=== PATIENT | female | born 1950 | race American Indian/Alaskan Native ===

== ENCOUNTER 2016-05-09 05:40 | Emergency (ER) | payer MEDICARE, OTHER ==
[2016-05-09 05:38] VITALS: BP 132/77
--- NOTE | 2016-05-09 06:26 | EDM.PDOC ---
<Alen Lizama - Last Filed: 05/09/16 07:03> ED HPI GENERAL MEDICAL PROBLEM - General Chief Complaint: Neuro Symptoms/Deficits Stated Complaint: IN BY AMBULANCE Time Seen by Provider: 05/09/16 06:15 Source of Information: Reports: Patient History Limitations: Reports: No limitations - History of Present Illness INITIAL COMMENTS - FREE TEXT/NARRATIVE: This 65 yo female patient was brought to the ED by [facility] due to feeling like she was going to have a seizure. The patient reports a past history of seizures, but has not had one for "a long time." The patient reports she started feeling this way last Tuesday (6 days ago). The patient reports she feels "jumpy". The patient reports her symptoms have not changed. The patient reports she has been feeling a little light headed over the past 6 days also. The patient reports her doctor added a medication for seizures this past week and also put her on "something for her kidneys." The patient reports she has not fallen during the past week and has been eating and drinking normally. The patient reports her daughter made her come in this morning. Onset Date: 05/03/16 Duration: Constant Location: Reports: generalized Quality: Reports: Other Severity: mild Improves with: Reports: None Worsens with: Reports: None Context: Reports: Other (possiblly coincides with a recent medication change) Associated Symptoms: Reports: other (lightheaded and feels "jumpy" ) - Related Data Allergies Allergy/AdvReac Type Severity Reaction Status Date / Time No Known Allergies Allergy Verified 05/09/16 05:31 Home Meds: Home Meds Aspirin [Ecotrin] 81 mg PO DAILY 10/04/13 [History] Calcium/Vit B12/FA/Pyridoxine [Folic Acid-Vit B6-Vit B12 Tab] 2 tab PO DAILY [History] Cholecalciferol (Vitamin D3) [Vitamin D3] 2 tab PO DAILY 10/04/13 [History] Clopidogrel Bisulfate [Clopidogrel] 75 mg PO DAILY 10/04/13 [History] Lisinopril 20 mg PO DAILY 10/04/13 [History] Metoprolol Succinate 50 mg PO DAILY 10/04/13 [History] Phenytoin Sodium Extended 200 mg PO BID 10/04/13 [History] Primidone 500 mg PO BID 10/04/13 [History] Acetaminophen 2 tab PO Q6H PRN 05/09/16 [History] Calcium Citrate/Vitamin D3 [Calcium Citrate + D] 1 tab PO BID 05/09/16 [History] Cyanocobalamin (Vitamin B-12) [B-12] 1 tab PO DAILY 05/09/16 [History] Meloxicam [Mobic] 1 tab PO DAILY PRN 05/09/16 [History] Naproxyn 1 tab PO BID PRN 05/09/16 [History] Oxybutynin Chloride 1 tab PO BEDTIME 05/09/16 [History] atorvaSTATin Calcium [Atorvastatin Calcium] 1 tab PO DAILY 05/09/16 [History] Past Medical History Cardiovascular History: Reports: Angina, CAD, High cholesterol, Hypertension Musculoskeletal History: Reports: Arthritis Neurological History: Reports: Seizure - Infectious Disease History Infectious Disease History: Reports: Chicken pox, Mumps Social & Family History - Family History Family Medical History: Noncontributory Cardiac: Reports: Other (see below) Other Cardiac Family History: "heart problems" - Tobacco Use Smoking Status *Q: Current Every Day Smoker Years of Tobacco use: 35 Packs/Tins Daily: 0.5 Used Tobacco, but Quit: No Second Hand Smoke Exposure: Yes - Caffeine Use Caffeine Use: Reports: Coffee - Alcohol Use Days Per Week of Alcohol Use: 0 - Recreational Drug Use Recreational Drug Use: No - Living Situation & Occupation Living situation: Reports: with family Occupation: retired ED ROS GENERAL - Review of Systems Review Of Systems: ROS reveals no pertinent complaints other than HPI. ED EXAM, GENERAL - Physical Exam Exam: See Below Exam Limited By: No limitations General Appearance: alert, WD/WN, no apparent distress Eye Exam: bilateral eye: EOMI, normal inspection, PERRL Ears: normal external exam, normal canal, hearing grossly normal, normal TMs Nose: normal inspection, normal mucosa, no blood Throat/Mouth: Normal inspection, Normal lips, Normal teeth, Normal gums, Normal oropharynx, Normal voice, No airway compromise Head: atraumatic, normocephalic Neck: normal inspection, supple, non-tender, full range of motion Respiratory/Chest: no respiratory distress, lungs clear, normal breath sounds, no accessory muscle use, chest non-tender Cardiovascular: normal peripheral pulses, regular rate, rhythm, no edema, no gallop, no JVD, no murmur, no rub GI/Abdominal: normal bowel sounds, soft, non tender, no organomegaly, no distention, no abnormal bruit, no mass (Female) Exam: Deferred Rectal (Female) Exam: Deferred Back Exam: normal inspection, full range of motion, NT Extremities: normal inspection, normal range of motion, non-tender, normal capillary refill, no pedal edema Neurological: alert, oriented, CN II-XII intact, normal cognition, normal gait, normal reflexes, no motor/sensory deficits Psychiatric: normal affect, normal mood Skin Exam: Warm, Dry, Intact, Normal color, No rash Lymphatic: no adenopathy Course - Vital Signs Last Recorded V/S: Last Vital Signs Temp 35.9 C 05/09/16 05:32 Pulse 51 L 05/09/16 05:32 Resp 19 05/09/16 05:32 BP 132/77 05/09/16 05:32 Pulse Ox 96 05/09/16 05:32 - Orders/Labs/Meds Orders: Active Orders 24 hr Category Date Time Status EKG 12 Lead [EKG Documentation Completion] [RC] ROUTINE Care 05/09/16 05:50 Active CULTURE URINE [RM] Stat Lab 05/09/16 07:47 Uncollected Labs: Laboratory Tests 05/09/16 05/09/16 05/09/16 Range/Units 06:27 06:27 07:21 WBC 6.3 (5.0-10.0) 10^3/uL RBC 4.55 (4.2-5.4) 10^6/uL Hgb 14.2 (12.0-16.0) g/dL Hct 42.7 (37.0-47.0) % MCV 93.8 (80-100) fL MCH 31.2 (27.0-34.0) pg MCHC 33.3 (33.0-35.0) g/dL Plt Count 248 (150-450) 10^3/uL Neut % (Auto) 53.3 (42.2-75.2) % Lymph % (Auto) 36.6 (20.5-50.1) % [place] % (Auto) 6.5 (2-8) % Eos % (Auto) 3.0 (1.0-3.0) % Baso % (Auto) 0.6 (0.0-1.0) % Sodium 139 (135-145) mmol/L Potassium 3.7 (3.6-5.0) mmol/L Chloride 105 (101-111) mmol/L Carbon Dioxide 26.0 (21.0-31.0) mmol/L Anion Gap 11.7 BUN 17 (7-18) mg/dL Creatinine 0.9 (0.6-1.3) mg/dL Est Cr Clr Drug Dosing 54.53 mL/min Estimated GFR (MDRD) > 60 BUN/Creatinine Ratio 18.88 Glucose 103 (74-105) mg/dL Calcium 8.8 (8.4-10.2) mg/dl Total Bilirubin 0.2 (0.2-1.0) mg/dL AST 19 (10-42) IU/L ALT 20 (10-60) IU/L Alkaline Phosphatase 94 (42-121) IU/L Troponin I < 0.02 (0.00-0.02) ng/ml Total Protein 6.4 L (6.7-8.2) g/dl Albumin 3.8 (3.2-5.5) g/dl Globulin 2.6 Albumin/Globulin Ratio 1.46 Urine Color Yellow (YELLOW) Urine Appearance Slightly cloudy (CLEAR) Urine pH 6.0 (5.0-9.0) Ur Specific [place] 1.015 (1.005-1.030) Urine Protein Negative (NEGATIVE) Urine Glucose (UA) Negative (NEGATIVE) Urine Ketones Negative (NEGATIVE) Urine Occult Blood Negative (NEGATIVE) Urine Nitrite Positive H (NEGATIVE) Urine Bilirubin Negative (NEGATIVE) Urine Urobilinogen 0.2 (0.2-1.0) mg/dL Ur Leukocyte Esterase Trace H (NEGATIVE) Urine RBC 0-5 /HPF Urine WBC 5-10 H (0-5/HPF) /HPF Ur Epithelial Cells Moderate H /HPF Urine Bacteria Many H (0-FEW/HPF) /HPF Phenytoin 12.1 (10-20) ug/dL Meds: Medications Discontinued Medications Generic Name Dose Route Start Last Admin Trade Name Freq PRN Reason Stop Dose Admin Levofloxacin 500 mg 05/09/16 07:47 05/09/16 07:52 Levaquin PO 05/09/16 07:48 500 mg ONETIME ONE Administration Departure - Departure Disposition: Home, Self-Care 01 Clinical Impression: UTI (urinary tract infection) Qualifiers: Urinary tract infection type: acute cystitis Hematuria presence: with hematuria Qualified Code(s): N30.01 - Acute cystitis with hematuria Forms: ED Department Discharge Additional Instructions: Rest Increase intake of Water / Cranberry Juice Take the Levaquin 500mg QD X 6 days Cont with usual medications F/U w/ PCP - My Orders Last 24 Hours: My Active Orders 05/09/16 07:47 CULTURE URINE [RM] Stat - Assessment/Plan Last 24 Hours: My Active Orders 05/09/16 07:47 CULTURE URINE [RM] Stat <Julian Hinojosa - Last Filed: 05/09/16 08:34> Departure - Departure Time of Disposition: 08:33 Condition: good
[2016-05-09 07:03] LABS: CHLORIDE,CL 105 mmol/L (101-111); SODIUM,NA 139 mmol/L (135-145)
[2016-05-09] MEDS ORDERED: Levofloxacin 500 MG Tab PO ONE (07:47)
--- NOTE | 2016-05-18 09:58 | EKG ---
05/09/2016 - JACK LEWIS - TIME: 2145 hours. EKG is sinus bradycardia with a rate of 51. There is a first-degree AV block. There are T-wave inversions on the anterolateral leads. IMPRESSION: Abnormal EKG as noted above. [facility] /[id number]
== END 2016-05-09 09:00 | disposition home or self-care (01) ==
LOC: DL.ED 05:40
DX: N30.01 Acute cystitis with hematuria (principal); I25.10 Atherosclerotic heart disease of native coronary artery without angina pectoris; E78.00 Pure hypercholesterolemia, unspecified; I10 Essential (primary) hypertension; M19.90 Unspecified osteoarthritis, unspecified site; F17.210 Nicotine dependence, cigarettes, uncomplicated; Z79.82 Long term (current) use of aspirin; Z79.899 Other long term (current) drug therapy
CPT/HCPCS: 36415; 80053; 80185; 81001; 84484; 85025; 87086; 93005; 93010; 99284; A9270; 87088; 87186; 99283

== ENCOUNTER 2016-05-09 11:35 | Emergency (ER) | payer MEDICARE, OTHER ==
[2016-05-09 12:01] VITALS: BP 136/62
--- NOTE | 2016-05-09 12:49 | EDM.PDOC ---
ED HPI SEIZURE COMPLAINT - General Chief Complaint: Neurological Problem Stated Complaint: HAD SEIZURE 2ND VISIT Time Seen by Provider: 05/09/16 12:44 Source of Information: Reports: Patient, Family (daughter and Nephrew) History Limitations: Reports: No limitations - History of Present Illness INITIAL COMMENTS - FREE TEXT/NARRATIVE: 65 yo [place] Female brought in by family w/ c/o seizure activity in the car. The family members describe "patient eyes rolling back and shaking all over" Symptom Onset Date: 05/09/16 Symptom Onset Time: 10:45 Timing/Duration: Reports: hour(s): Event Occurred (Where): other (in car) Location: Reports: generalized Quality: Reports: generalized shaking Severity: moderate Context: Reports: new/change in medications Event Symptoms: Reports: no other symptoms Post Event Symptoms: Reports: confused, headache - Related Data Allergies/ADRs: Allergies Allergy/AdvReac Type Severity Reaction Status Date / Time No Known Allergies Allergy Verified 05/09/16 05:31 Home Meds: Home Meds Aspirin [Ecotrin] 81 mg PO DAILY 10/04/13 [History] Calcium/Vit B12/FA/Pyridoxine [Folic Acid-Vit B6-Vit B12 Tab] 2 tab PO DAILY [History] Cholecalciferol (Vitamin D3) [Vitamin D3] 2 tab PO DAILY 10/04/13 [History] Clopidogrel Bisulfate [Clopidogrel] 75 mg PO DAILY 10/04/13 [History] Lisinopril 20 mg PO DAILY 10/04/13 [History] Metoprolol Succinate 50 mg PO DAILY 10/04/13 [History] Phenytoin Sodium Extended 200 mg PO BID 10/04/13 [History] Primidone 500 mg PO BID 10/04/13 [History] Acetaminophen 2 tab PO Q6H PRN 05/09/16 [History] Calcium Citrate/Vitamin D3 [Calcium Citrate + D] 1 tab PO BID 05/09/16 [History] Cyanocobalamin (Vitamin B-12) [B-12] 1 tab PO DAILY 05/09/16 [History] Meloxicam [Mobic] 1 tab PO DAILY PRN 05/09/16 [History] Naproxyn 1 tab PO BID PRN 05/09/16 [History] Oxybutynin Chloride 1 tab PO BEDTIME 05/09/16 [History] atorvaSTATin Calcium [Atorvastatin Calcium] 1 tab PO DAILY 05/09/16 [History] Past Medical History Cardiovascular History: Reports: Angina, CAD, High cholesterol, Hypertension Musculoskeletal History: Reports: Arthritis Neurological History: Reports: Seizure - Infectious Disease History Infectious Disease History: Reports: Chicken pox, Mumps Social & Family History - Family History Family Medical History: Noncontributory Cardiac: Reports: Other (see below) Other Cardiac Family History: "heart problems" - Tobacco Use Smoking Status *Q: Current Every Day Smoker Years of Tobacco use: 35 Packs/Tins Daily: 0.5 Used Tobacco, but Quit: No Second Hand Smoke Exposure: Yes - Caffeine Use Caffeine Use: Reports: Coffee - Alcohol Use Days Per Week of Alcohol Use: 0 - Recreational Drug Use Recreational Drug Use: No - Living Situation & Occupation Living situation: Reports: with family Occupation: retired ED ROS GENERAL - Review of Systems Review Of Systems: See Below Constitutional: Reports: no symptoms HEENT: Reports: No symptoms Respiratory: Reports: No Symptoms Cardiovascular: Reports: No symptoms Endocrine: Reports: no symptoms GI/Abdominal: Reports: No symptoms : Reports: no symptoms Musculoskeletal: Reports: no symptoms Skin: Reports: no symptoms Neurological: Reports: Headache, Seizure Psychiatric: Reports: No symptoms Hematologic/Lymphatic: Reports: no symptoms Immunologic: Reports: no symptoms - Physical Exam Exam: See Below Exam Limited By: No limitations General Appearance: alert, WD/WN, no apparent distress Eye Exam: bilateral eye: PERRL Ears: normal external exam Nose: normal inspection Throat/Mouth: Normal inspection Head Exam: atraumatic Neck: normal inspection Respiratory/Chest: no respiratory distress, lungs clear Cardiovascular: normal peripheral pulses GI/Abdominal: normal bowel sounds Neuro Exam (Abbreviated): alert, normal reflexes, no motor/sensory deficits DTR: 2+: bicep (R), bicep (L) Back Exam: normal inspection, full range of motion Extremities: normal inspection, normal range of motion Psychiatric: normal affect, normal mood Skin Exam: Warm, Dry Course - Vital Signs Last Recorded V/S: Last Vital Signs Temp 36.8 C 05/09/16 11:40 Pulse 65 05/09/16 11:40 Resp 16 05/09/16 11:40 BP 136/62 05/09/16 11:40 Pulse Ox 93 L 05/09/16 11:40 Departure - Departure Time of Disposition: 15:39 Disposition: DC/Tfer to Acute Hospital 02 Condition: fair Clinical Impression: Generalized convulsive epilepsy Forms: ED Department Discharge, Interfacility Transfer LIZBETH
--- NOTE | 2016-05-09 14:38 | CT ---
Clinical history: 65-year-old female seen emergency department with "seizure". The patient does have history of seizure disorder and could possibly be "adversely reacting to her medications". No known recent head trauma. Scan technique: Volume acquisition of data emergency unenhanced CT scan of the head obtained with pa tient lying supine on the Siemens multi slice scanner [facility]. All data archived in the PAC system for storage and study (bone/brain windows). Some positional a rtifact. No previous CT exams of the head at this institution for comparison. Interpretation: 1. Hyperostosis frontalis interna. Uniformly thick bony calvarium without sign of skull fracture, un derlying brain contusion or epidural/subdural hematoma. 2. Densely sclerotic mastoid sinuses. Symmetric clear pneumatization of the paranasal sinuses. 3. 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 4. No supratentorial or posterior fossa mass lesion. No hydrocephalus. 5. Inhomogeneity parietal lobe, on the right, with effacement of the ipsilateral cerebral sulci and lateral ventricle suggesting infiltrative mass. This warrants further workup to include MRI head.
== END 2016-05-09 16:15 ==
LOC: DL.ED 11:35
DX: G40.409 Other generalized epilepsy and epileptic syndromes, not intractable, without status epilepticus (principal); I25.10 Atherosclerotic heart disease of native coronary artery without angina pectoris; E78.00 Pure hypercholesterolemia, unspecified; I10 Essential (primary) hypertension; M19.90 Unspecified osteoarthritis, unspecified site; F17.210 Nicotine dependence, cigarettes, uncomplicated; Z79.82 Long term (current) use of aspirin; Z79.899 Other long term (current) drug therapy; N30.01 Acute cystitis with hematuria
CPT/HCPCS: 36415; 70450; 80053; 80185; 81001; 84484; 85025; 87086; 87088; 87186; 93005; 93010; 99283; 99284; 99285; A9270

== ENCOUNTER 2016-05-13 06:41 | Emergency (ER) | payer MEDICARE, OTHER ==
[2016-05-13 06:45] VITALS: BP 132/57
--- NOTE | 2016-05-13 07:18 | EDM.PDOC ---
ED HPI GENERAL MEDICAL PROBLEM - General Chief Complaint: General Stated Complaint: [facility] AMB Time Seen by Provider: 05/13/16 07:00 Source of Information: Reports: Patient, Old records, RN, RN notes reviewed History Limitations: Reports: No limitations - History of Present Illness INITIAL COMMENTS - FREE TEXT/NARRATIVE: Arrives from home by ambulance with c/o dizziness and shakiness that has been present since pt was started on Ditropan 5mg. She was transferred from this ER to [facility] on 05/09/16 where she had a neurology and neurosurgical consults while there and they are going to recheck her in 3 months. Pt denies falls, seizure, headache, visual changes, neck pain, chest pain, or palpitations. She describes the dizziness as being "off balance". Denies lightheadedness, syncope, nor near syncope. Pt was discharged from [facility] last with ataxia included in her list of discharge diagnoses. Duration: Constant Severity: moderate Improves with: Reports: None Worsens with: Reports: None Context: Reports: Other (new medication). Denies: Activity, Exercise, Lifting, Sick contact, Trauma Associated Symptoms: Reports: no other symptoms - Related Data Allergies Allergy/AdvReac Type Severity Reaction Status Date / Time No Known Allergies Allergy Verified 05/09/16 05:31 Home Meds: Home Meds Aspirin [Ecotrin] 81 mg PO DAILY 10/04/13 [History] Calcium/Vit B12/FA/Pyridoxine [Folic Acid-Vit B6-Vit B12 Tab] 2 tab PO DAILY [History] Cholecalciferol (Vitamin D3) [Vitamin D3] 2 tab PO DAILY 10/04/13 [History] Clopidogrel Bisulfate [Clopidogrel] 75 mg PO DAILY 10/04/13 [History] Lisinopril 20 mg PO DAILY 10/04/13 [History] Metoprolol Succinate 50 mg PO DAILY 10/04/13 [History] Phenytoin Sodium Extended 200 mg PO BID 10/04/13 [History] Primidone 500 mg PO BID 10/04/13 [History] Acetaminophen 2 tab PO Q6H PRN 05/09/16 [History] Calcium Citrate/Vitamin D3 [Calcium Citrate + D] 1 tab PO BID 05/09/16 [History] Cyanocobalamin (Vitamin B-12) [B-12] 1 tab PO DAILY 05/09/16 [History] Meloxicam [Mobic] 1 tab PO DAILY PRN 05/09/16 [History] Naproxyn 1 tab PO BID PRN 05/09/16 [History] Oxybutynin Chloride 1 tab PO BEDTIME 05/09/16 [History] atorvaSTATin Calcium [Atorvastatin Calcium] 1 tab PO DAILY 05/09/16 [History] Past Medical History Cardiovascular History: Reports: Angina, CAD, High cholesterol, Hypertension Musculoskeletal History: Reports: Arthritis Neurological History: Reports: Seizure, Other (see below) (brain tumor, meningioma) - Infectious Disease History Infectious Disease History: Reports: Chicken pox, Mumps Social & Family History - Family History Family Medical History: Noncontributory Cardiac: Reports: Other (see below) Other Cardiac Family History: "heart problems" - Tobacco Use Smoking Status *Q: Current Every Day Smoker Years of Tobacco use: 30 Packs/Tins Daily: 1 Used Tobacco, but Quit: No Second Hand Smoke Exposure: Yes - Caffeine Use Caffeine Use: Reports: Coffee - Alcohol Use Days Per Week of Alcohol Use: 0 - Recreational Drug Use Recreational Drug Use: No - Living Situation & Occupation Living situation: Reports: with family Occupation: retired ED ROS GENERAL - Review of Systems Review Of Systems: ROS reveals no pertinent complaints other than HPI. ED EXAM, GENERAL - Physical Exam Exam: See Below Exam Limited By: No limitations General Appearance: alert, WD/WN, no apparent distress Eye Exam: bilateral eye: EOMI, normal fundi, normal inspection, PERRL Ears: normal external exam, normal canal, hearing grossly normal, normal TMs Nose: normal inspection, normal mucosa, no blood Throat/Mouth: Normal inspection, Normal lips, Normal teeth, Normal gums, Normal oropharynx, Normal voice, No airway compromise Head: atraumatic, normocephalic Neck: normal inspection, supple, non-tender, full range of motion. No: carotid bruit, lymphadenopathy (L), lymphadenopathy (R) Respiratory/Chest: no respiratory distress, lungs clear, normal breath sounds, no accessory muscle use, chest non-tender Cardiovascular: normal peripheral pulses, regular rate, rhythm, no edema, no gallop, no JVD, no murmur, no rub GI/Abdominal: normal bowel sounds, soft, non tender, no organomegaly, no distention, no abnormal bruit, no mass (Female) Exam: Deferred Rectal (Female) Exam: Deferred Back Exam: normal inspection, full range of motion, NT Extremities: normal inspection, normal range of motion, non-tender, normal capillary refill, no pedal edema Neurological: alert, oriented, CN II-XII intact, normal cognition, other ( ataxic gait) Psychiatric: normal affect, normal mood Skin Exam: Warm, Dry, Intact, Normal color, No rash Course - Vital Signs Last Recorded V/S: Last Vital Signs Temp 36.5 C 05/13/16 06:41 Pulse 83 05/13/16 06:41 Resp 18 05/13/16 06:41 BP 132/57 L 05/13/16 06:41 Pulse Ox 96 05/13/16 06:41 Orthostatic Blood Pressure [ 138/68 Standing] Orthostatic Blood Pressure [ 141/74 Sitting] Orthostatic Blood Pressure [ 131/62 Supine] - Orders/Labs/Meds Orders: Active Orders 24 hr Category Date Time Status Orthostatic Vital Signs [RC] ASDIRECTED Care 05/13/16 07:24 Active Labs: Laboratory Tests 05/13/16 05/13/16 05/13/16 Range/Units 07:40 07:40 08:50 WBC 7.4 (5.0-10.0) 10^3/uL RBC 4.74 (4.2-5.4) 10^6/uL Hgb 14.9 (12.0-16.0) g/dL Hct 44.5 (37.0-47.0) % MCV 93.9 (80-100) fL MCH 31.4 (27.0-34.0) pg MCHC 33.5 (33.0-35.0) g/dL Plt Count 272 (150-450) 10^3/uL Neut % (Auto) 62.3 (42.2-75.2) % Lymph % (Auto) 29.3 (20.5-50.1) % [place] % (Auto) 6.5 (2-8) % Eos % (Auto) 1.5 (1.0-3.0) % Baso % (Auto) 0.4 (0.0-1.0) % Sodium 140 (135-145) mmol/L Potassium 3.6 (3.6-5.0) mmol/L Chloride 102 (101-111) mmol/L Carbon Dioxide 30.0 (21.0-31.0) mmol/L Anion Gap 11.6 BUN 11 (7-18) mg/dL Creatinine 0.8 (0.6-1.3) mg/dL Est Cr Clr Drug Dosing 69.09 mL/min Estimated GFR (MDRD) > 60 BUN/Creatinine Ratio 13.75 Glucose 104 (74-105) mg/dL Calcium 9.3 (8.4-10.2) mg/dl Total Bilirubin 0.4 (0.2-1.0) mg/dL AST 21 (10-42) IU/L ALT 22 (10-60) IU/L Alkaline Phosphatase 95 (42-121) IU/L Total Protein 7.2 (6.7-8.2) g/dl Albumin 4.4 (3.2-5.5) g/dl Globulin 2.8 Albumin/Globulin Ratio 1.57 Urine Color Yellow (YELLOW) Urine Appearance Turbid (CLEAR) Urine pH 6.0 (5.0-9.0) Ur Specific [place] 1.020 (1.005-1.030) Urine Protein Trace H (NEGATIVE) Urine Glucose (UA) Negative (NEGATIVE) Urine Ketones Negative (NEGATIVE) Urine Occult Blood Trace-lysed H (NEGATIVE) Urine Nitrite Negative (NEGATIVE) Urine Bilirubin Negative (NEGATIVE) Urine Urobilinogen 0.2 (0.2-1.0) mg/dL Ur Leukocyte Esterase Trace H (NEGATIVE) Urine RBC 0-5 /HPF Urine WBC 30-40 H (0-5/HPF) /HPF Ur Epithelial Cells Many H /HPF Urine Bacteria Moderate H (0-FEW/HPF) /HPF Meds: Medications Discontinued Medications Generic Name Dose Route Start Last Admin Trade Name Freq PRN Reason Stop Dose Admin Lidocaine/Epinephrine 20 ml 05/13/16 07:42 05/13/16 07:51 Xylocaine 1% With Epinephrine 1:100,000 .XX 05/13/16 07:43 Not Given ONETIME ONE Oxymetazoline HCl 10 ml 05/13/16 07:41 05/13/16 07:51 Afrin Original 0.05% Nasal [place] LOS 05/13/16 07:42 Not Given ONETIME ONE Medications entered in error and not given (wrong pt). - Re-Assessments/Exams Free Text/Narrative Re-Assessment/Exam: 04/06/17 I explained the exam findings, results of all diagnostic tests, working diagnosis, and any potential or additionally considered diagnoses, treatment/ disposition plan, self/home care instructions, rational for the diagnosis/ treatment plan/disposition plan, anticipated course of illness, and follow up instructions to the pt and/or pts family or guardian. The pt and/or pts family or guardian acknowledges understanding of the above explanation(s), and of the signs and symptoms which should prompt the return of the pt to the ER should those or any other concerning symptoms develop. Departure - Departure Time of Disposition: 09:18 Disposition: Home, Self-Care 01 Condition: fair Clinical Impression: Dizziness, Ataxia, Adverse effects of medication Instructions: Ataxia, Dizziness, [id number] Referrals: PCP,None [Primary Care Provider] - Forms: ED Department Discharge Additional Instructions: Stop taking Oxybutynin (Ditropan) 5mg, as this medication may be either causing your dizziness, or making the dizziness worse. Follow up in clinic with your primary doctor in 4 to 5 days for recheck. Continue all of your other medications exactly as prescribed. - My Orders Last 24 Hours: My Active Orders 05/13/16 07:24 Orthostatic Vital Signs [RC] ASDIRECTED - Assessment/Plan Last 24 Hours: My Active Orders 05/13/16 07:24 Orthostatic Vital Signs [RC] ASDIRECTED
[2016-05-13] MEDS ORDERED: Oxymetazoline 0.05% Nasal Spray 15 ML Bottle NAS ONE (07:41)
[2016-05-13] MEDS ORDERED: Lidocaine 1% with EPINEPHrine 1:100,000 20 ML MDV ONE (07:42)
[2016-05-13 08:06] LABS: CHLORIDE,CL 102 mmol/L (101-111); SODIUM,NA 140 mmol/L (135-145)
== END 2016-05-13 09:39 | disposition home or self-care (01) ==
LOC: DL.ED 06:41
DX: R42 Dizziness and giddiness (principal); R27.0 Ataxia, unspecified; T44.3X5A Adverse effect of other parasympatholytics [anticholinergics and antimuscarinics] and spasmolytics, initial encounter; I20.9 Angina pectoris, unspecified; I25.10 Atherosclerotic heart disease of native coronary artery without angina pectoris; I10 Essential (primary) hypertension; E78.00 Pure hypercholesterolemia, unspecified; F17.210 Nicotine dependence, cigarettes, uncomplicated; R56.9 Unspecified convulsions; Z79.82 Long term (current) use of aspirin; Z79.899 Other long term (current) drug therapy
CPT/HCPCS: 36415; 80053; 81001; 85025; 99283; 99285

== ENCOUNTER 2017-05-05 16:16 | Emergency (ER) | payer MEDICARE, OTHER ==
[2017-05-05 15:28] VITALS: BP 150/66
--- NOTE | 2017-05-05 16:14 | CR ---
Clinical history: 66-year-old female emergency department with chest pain. Interpretation: AP portable chest film abnormal but notably unchanged except for technique when compared to 2014 exam. 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 Borderline cardiomegaly without cephalization of flow and new signs of alveolar edema or dependent pl eural fluid accumulation. No new lung mass, hilar lymphadenopathy or focal lobar pneumonia. No new atelectasis or lobar collapse. No pneumothorax. CONCLUSION: No acute new cardiopulmonary abnormality since October 2014.
[2017-05-05 16:30] LABS: CHLORIDE,CL 103 mmol/L (101-111); SODIUM,NA 138 mmol/L (135-145)
--- NOTE | 2017-05-05 16:55 | EDM.PDOC ---
ED HPI GENERAL MEDICAL PROBLEM - General Chief Complaint: General Stated Complaint: CAME BY AMBULANCE, SEIZURE Time Seen by Provider: 05/05/17 16:35 Source of Information: Reports: Patient, RN, RN Notes Reviewed History Limitations: Reports: No Limitations - History of Present Illness INITIAL COMMENTS - FREE TEXT/NARRATIVE: Pt presents to the ER per [facility] with c/o weakness. She states she has a history of heart disease and VA. Pt states she began feeling weak today, and felt as if she was going to have a seizure, but did not have the aura that she usually does. Patient states she took her medications and states she feels better. Pt denies chest pain, sob, N/V/D, fever or chills. Patient admits to some arthritic pain in the knees. Onset: Today, Sudden - Related Data Allergies Allergy/AdvReac Type Severity Reaction Status Date / Time No Known Allergies Allergy Verified 05/05/17 15:32 Home Meds: Home Meds Aspirin [Ecotrin] 81 mg PO DAILY 10/04/13 [History] Calcium/Vit B12/FA/Pyridoxine [Folic Acid-Vit B6-Vit B12 Tab] 2 tab PO DAILY [History] Cholecalciferol (Vitamin D3) [Vitamin D3] 2,000 units PO DAILY 10/04/13 [History ] Clopidogrel Bisulfate [Clopidogrel] 75 mg PO DAILY 10/04/13 [History] Lisinopril 20 mg PO DAILY 10/04/13 [History] Metoprolol Succinate 50 mg PO DAILY 10/04/13 [History] Phenytoin Sodium Extended 200 mg PO BID 10/04/13 [History] Primidone 500 mg PO BID 10/04/13 [History] Acetaminophen 2 tab PO Q6H PRN 05/09/16 [History] Calcium Citrate/Vitamin D3 [Calcium Citrate + D] 1 tab PO BID 05/09/16 [History] Cyanocobalamin (Vitamin B-12) [B-12] 1,000 mcg PO DAILY 05/09/16 [History] Meloxicam [Mobic] 1 tab PO DAILY PRN 05/09/16 [History] Oxybutynin Chloride 1 tab PO BEDTIME 05/09/16 [History] atorvaSTATin Calcium [Atorvastatin Calcium] 10 mg PO BEDTIME 05/09/16 [History] Past Medical History HEENT History: Reports: Impaired Vision Cardiovascular History: Reports: Angina, CAD, High Cholesterol, Hypertension Musculoskeletal History: Reports: Arthritis Neurological History: Reports: Seizure - Infectious Disease History Infectious Disease History: Reports: Chicken Pox, Mumps Social & Family History - Family History Family Medical History: Noncontributory Cardiac: Reports: Other (See Below) Other Cardiac Family History: "heart problems" - Tobacco Use Smoking Status *Q: Current Every Day Smoker Years of Tobacco use: 5 Packs/Tins Daily: 5 Used Tobacco, but Quit: No Second Hand Smoke Exposure: Yes - Caffeine Use Caffeine Use: Reports: Coffee - Alcohol Use Days Per Week of Alcohol Use: 0 - Recreational Drug Use Recreational Drug Use: No - Living Situation & Occupation Living situation: Reports: with Family Occupation: Retired ED ROS GENERAL - Review of Systems Review Of Systems: ROS reveals no pertinent complaints other than HPI. ED EXAM, GENERAL - Physical Exam Exam: See Below Exam Limited By: No Limitations General Appearance: Alert, WD/WN, No Apparent Distress Eye Exam: Bilateral Eye: EOMI, Normal Inspection, PERRL Ears: Normal External Exam, Hearing Grossly Normal Nose: Normal Inspection Throat/Mouth: Normal Inspection, Normal Voice, No Airway Compromise Head: Atraumatic, Normocephalic Neck: Normal Inspection, Supple, Non-Tender, Full Range of Motion Respiratory/Chest: No Respiratory Distress, Lungs Clear, Normal Breath Sounds, No Accessory Muscle Use, Chest Non-Tender Cardiovascular: Normal Peripheral Pulses, Regular Rate, Rhythm, No Edema, No Gallop, No JVD, No Murmur, No Rub Peripheral Pulses: 2+: Radial (L), Radial (R) GI/Abdominal: Normal Bowel Sounds, Soft, Non-Tender, No Organomegaly, No Distention, No Abnormal Bruit, No Mass (Female) Exam: Deferred Rectal (Female) Exam: Deferred Back Exam: Normal Inspection, Full Range of Motion, NT Extremities: Normal Inspection, Normal Range of Motion, Non-Tender, Normal Capillary Refill, No Pedal Edema Neurological: Alert, Oriented, CN II-XII Intact, Normal Cognition, Normal Gait, Normal Reflexes, No Motor/Sensory Deficits Psychiatric: Normal Affect, Normal Mood Skin Exam: Warm, Dry, Intact, Normal Color, No Rash Lymphatic: No Adenopathy EKG INTERPRETATION EKG Date: 05/05/17 Time: 15:29 Rate (Beats/Min): 56 Comparison: No Change EKG Interpretation Comments: Sinus bradycardia, abnormal T Course - Vital Signs Last Recorded V/S: Last Vital Signs Temp 97.9 F 05/05/17 15:23 Pulse 55 L 05/05/17 15:23 Resp 18 05/05/17 15:23 BP 150/66 H 05/05/17 15:23 Pulse Ox 95 05/05/17 15:23 - Orders/Labs/Meds Orders: Active Orders 24 hr Category Date Time Status EKG Documentation Completion [RC] STAT Care 05/05/17 15:42 Active DRUG SCREEN URINE BIORAD [URCHEM] Stat Lab 05/05/17 16:19 Ordered UA W/MICROSCOPIC [URIN] Stat Lab 05/05/17 16:19 Ordered Labs: Laboratory Tests 05/05/17 05/05/17 05/05/17 Range/Units 16:02 16:02 16:02 WBC 5.1 (5.0-10.0) 10^3/uL RBC 4.44 (4.2-5.4) 10^6/uL Hgb 13.6 (12.0-16.0) g/dL Hct 41.4 (37.0-47.0) % MCV 93.2 (80-100) fL MCH 30.6 (27.0-34.0) pg MCHC 32.9 L (33.0-35.0) g/dL Plt Count 233 (150-450) 10^3/uL Neut % (Auto) 56.7 (42.2-75.2) % Lymph % (Auto) 31.8 (20.5-50.1) % [place] % (Auto) 8.0 (2-8) % Eos % (Auto) 2.9 (1.0-3.0) % Baso % (Auto) 0.6 (0.0-1.0) % PT 9.8 (9.0-12.0) SEC INR 1.0 (0.9-1.2) Sodium 138 (135-145) mmol/L Potassium 4.5 (3.6-5.0) mmol/L Chloride 103 (101-111) mmol/L Carbon Dioxide 28.0 (21.0-31.0) mmol/L Anion Gap 11.5 BUN 15 (7-18) mg/dL Creatinine 0.8 (0.6-1.3) mg/dL Est Cr Clr Drug Dosing 60.54 mL/min Estimated GFR (MDRD) > 60 BUN/Creatinine Ratio 18.75 Glucose 96 (74-105) mg/dL Lactic Acid (0.5-2.2) mmol/L Calcium 8.6 (8.4-10.2) mg/dl Total Bilirubin 0.3 (0.2-1.0) mg/dL AST 16 (10-42) IU/L ALT 18 (10-60) IU/L Alkaline Phosphatase 100 (42-121) IU/L Troponin I 0.02 (0.00-0.02) ng/ml Total Protein 6.5 L (6.7-8.2) g/dl Albumin 3.7 (3.2-5.5) g/dl Globulin 2.8 Albumin/Globulin Ratio 1.32 Urine Color (YELLOW) Urine Appearance (CLEAR) Urine pH (5.0-9.0) Ur Specific [place] (1.005-1.030) Urine Protein (NEGATIVE) Urine Glucose (UA) (NEGATIVE) Urine Ketones (NEGATIVE) Urine Occult Blood (NEGATIVE) Urine Nitrite (NEGATIVE) Urine Bilirubin (NEGATIVE) Urine Urobilinogen (0.2-1.0) mg/dL Ur Leukocyte Esterase (NEGATIVE) Urine RBC /HPF Urine WBC (0-5/HPF) /HPF Ur Epithelial Cells /HPF Urine Bacteria (0-FEW/HPF) /HPF Urine Opiates Screen (NEGATIVE) Ur Oxycodone Screen (NEGATIVE) Urine Methadone Screen (NEGATIVE) Ur Barbiturates Screen (NEGATIVE) Phenytoin (10-20) ug/dL U Tricyclic Antidepress (NEGATIVE) Ur Phencyclidine Scrn (NEGATIVE) Ur Amphetamine Screen (NEGATIVE) U Methamphetamines Scrn (NEGATIVE) Urine MDMA Screen (NEGATIVE) U Benzodiazepines Scrn (NEGATIVE) Urine Cocaine Screen (NEGATIVE) U Marijuana (THC) Screen (NEGATIVE) 05/05/17 05/05/17 05/05/17 Range/Units 16:02 16:02 16:19 WBC (5.0-10.0) 10^3/uL RBC (4.2-5.4) 10^6/uL Hgb (12.0-16.0) g/dL Hct (37.0-47.0) % MCV (80-100) fL MCH (27.0-34.0) pg MCHC (33.0-35.0) g/dL Plt Count (150-450) 10^3/uL Neut % (Auto) (42.2-75.2) % Lymph % (Auto) (20.5-50.1) % [place] % (Auto) (2-8) % Eos % (Auto) (1.0-3.0) % Baso % (Auto) (0.0-1.0) % PT (9.0-12.0) SEC INR (0.9-1.2) Sodium (135-145) mmol/L Potassium (3.6-5.0) mmol/L Chloride (101-111) mmol/L Carbon Dioxide (21.0-31.0) mmol/L Anion Gap BUN (7-18) mg/dL Creatinine (0.6-1.3) mg/dL Est Cr Clr Drug Dosing mL/min Estimated GFR (MDRD) BUN/Creatinine Ratio Glucose (74-105) mg/dL Lactic Acid 1.0 (0.5-2.2) mmol/L Calcium (8.4-10.2) mg/dl Total Bilirubin (0.2-1.0) mg/dL AST (10-42) IU/L ALT (10-60) IU/L Alkaline Phosphatase (42-121) IU/L Troponin I (0.00-0.02) ng/ml Total Protein (6.7-8.2) g/dl Albumin (3.2-5.5) g/dl Globulin Albumin/Globulin Ratio Urine Color Yellow (YELLOW) Urine Appearance Slightly cloudy (CLEAR) Urine pH 7.0 (5.0-9.0) Ur Specific [place] 1.015 (1.005-1.030) Urine Protein Negative (NEGATIVE) Urine Glucose (UA) Negative (NEGATIVE) Urine Ketones Negative (NEGATIVE) Urine Occult Blood Negative (NEGATIVE) Urine Nitrite Positive H (NEGATIVE) Urine Bilirubin Negative (NEGATIVE) Urine Urobilinogen 0.2 (0.2-1.0) mg/dL Ur Leukocyte Esterase Negative (NEGATIVE) Urine RBC 0-5 /HPF Urine WBC 5-10 H (0-5/HPF) /HPF Ur Epithelial Cells Few /HPF Urine Bacteria Many H (0-FEW/HPF) /HPF Urine Opiates Screen (NEGATIVE) Ur Oxycodone Screen (NEGATIVE) Urine Methadone Screen (NEGATIVE) Ur Barbiturates Screen (NEGATIVE) Phenytoin 9.0 L (10-20) ug/dL U Tricyclic Antidepress (NEGATIVE) Ur Phencyclidine Scrn (NEGATIVE) Ur Amphetamine Screen (NEGATIVE) U Methamphetamines Scrn (NEGATIVE) Urine MDMA Screen (NEGATIVE) U Benzodiazepines Scrn (NEGATIVE) Urine Cocaine Screen (NEGATIVE) U Marijuana (THC) Screen (NEGATIVE) 05/05/17 Range/Units 16:19 WBC (5.0-10.0) 10^3/uL RBC (4.2-5.4) 10^6/uL Hgb (12.0-16.0) g/dL Hct (37.0-47.0) % MCV (80-100) fL MCH (27.0-34.0) pg MCHC (33.0-35.0) g/dL Plt Count (150-450) 10^3/uL Neut % (Auto) (42.2-75.2) % Lymph % (Auto) (20.5-50.1) % [place] % (Auto) (2-8) % Eos % (Auto) (1.0-3.0) % Baso % (Auto) (0.0-1.0) % PT (9.0-12.0) SEC INR (0.9-1.2) Sodium (135-145) mmol/L Potassium (3.6-5.0) mmol/L Chloride (101-111) mmol/L Carbon Dioxide (21.0-31.0) mmol/L Anion Gap BUN (7-18) mg/dL Creatinine (0.6-1.3) mg/dL Est Cr Clr Drug Dosing mL/min Estimated GFR (MDRD) BUN/Creatinine Ratio Glucose (74-105) mg/dL Lactic Acid (0.5-2.2) mmol/L Calcium (8.4-10.2) mg/dl Total Bilirubin (0.2-1.0) mg/dL AST (10-42) IU/L ALT (10-60) IU/L Alkaline Phosphatase (42-121) IU/L Troponin I (0.00-0.02) ng/ml Total Protein (6.7-8.2) g/dl Albumin (3.2-5.5) g/dl Globulin Albumin/Globulin Ratio Urine Color (YELLOW) Urine Appearance (CLEAR) Urine pH (5.0-9.0) Ur Specific [place] (1.005-1.030) Urine Protein (NEGATIVE) Urine Glucose (UA) (NEGATIVE) Urine Ketones (NEGATIVE) Urine Occult Blood (NEGATIVE) Urine Nitrite (NEGATIVE) Urine Bilirubin (NEGATIVE) Urine Urobilinogen (0.2-1.0) mg/dL Ur Leukocyte Esterase (NEGATIVE) Urine RBC /HPF Urine WBC (0-5/HPF) /HPF Ur Epithelial Cells /HPF Urine Bacteria (0-FEW/HPF) /HPF Urine Opiates Screen Negative (NEGATIVE) Ur Oxycodone Screen Negative (NEGATIVE) Urine Methadone Screen Negative (NEGATIVE) Ur Barbiturates Screen Positive H (NEGATIVE) Phenytoin (10-20) ug/dL U Tricyclic Antidepress Negative (NEGATIVE) Ur Phencyclidine Scrn Negative (NEGATIVE) Ur Amphetamine Screen Negative (NEGATIVE) U Methamphetamines Scrn Negative (NEGATIVE) Urine MDMA Screen Negative (NEGATIVE) U Benzodiazepines Scrn Negative (NEGATIVE) Urine Cocaine Screen Negative (NEGATIVE) U Marijuana (THC) Screen Negative (NEGATIVE) - Radiology Interpretation Free Text/Narrative:: chest xray: no acute findings See rad report Departure - Departure Time of Disposition: 17:13 Disposition: Home, Self-Care 01 Condition: Good Clinical Impression: Weakness - Discharge Information Instructions: Weakness, [id number] Forms: ED Department Discharge Additional Instructions: Take medications as prescribed. Follow up with your primary care facility Drink plenty of water. - My Orders Last 24 Hours: My Active Orders 05/05/17 15:42 EKG Documentation Completion [RC] STAT 05/05/17 16:19 DRUG SCREEN URINE BIORAD [URCHEM] Stat UA W/MICROSCOPIC [URIN] Stat - Assessment/Plan Last 24 Hours: My Active Orders 05/05/17 15:42 EKG Documentation Completion [RC] STAT 05/05/17 16:19 DRUG SCREEN URINE BIORAD [URCHEM] Stat UA W/MICROSCOPIC [URIN] Stat
--- NOTE | 2017-05-08 13:13 | EKG ---
05/05/2017 - JACK LEWIS - FINDINGS: A 12-lead EKG shows normal sinus rhythm with sinus bradycardia with heart rate of 56, [place] interval of 200. T-wave inversions noted on lead I and also V4, V5, V6. Nonspecific ST-T wave changes noted on lead III and aVF. Changes consistent with LVH, suspect possible ischemia on the lateral leads. Recommend to check electrolytes. [facility] /[id number]
== END 2017-05-05 17:30 | disposition home or self-care (01) ==
LOC: DL.ED 16:16
DX: R53.1 Weakness (principal); E78.00 Pure hypercholesterolemia, unspecified; I10 Essential (primary) hypertension; I25.10 Atherosclerotic heart disease of native coronary artery without angina pectoris; F17.210 Nicotine dependence, cigarettes, uncomplicated; Z79.82 Long term (current) use of aspirin; Z79.899 Other long term (current) drug therapy
CPT/HCPCS: 36415; 71045; 80053; 80185; 80305; 81001; 83605; 84484; 85025; 85610; 87086; 87088; 87186; 87804; 93005; 93010; 99283; 99285

== ENCOUNTER 2017-09-18 21:35 | Emergency (ER) | payer MEDICARE, OTHER ==
[2017-09-18 22:43] LABS: ANION GAP 12.1
--- NOTE | 2017-09-18 23:16 | EDM.PDOC ---
ED HPI GENERAL MEDICAL PROBLEM - General Chief Complaint: Upper Extremity Injury/Pain Stated Complaint: BY AMBULANCE Time Seen by Provider: 09/18/17 21:45 Source of Information: Reports: Patient History Limitations: Reports: No Limitations - History of Present Illness INITIAL COMMENTS - FREE TEXT/NARRATIVE: ED via EMS, with initial complaint of left hand swollen, First noted on arising this am at 9am, unable to hold coffee cup. Reports no other sx.Ems report weakness and questionable left droop of lip. No Pain. Hx memgioma, seizures, lump and bx lft breat 5 years ago with no follow up, mass /cyst to right side of neck. "mini stroke" 10 years ago. - Related Data Allergies Allergy/AdvReac Type Severity Reaction Status Date / Time atenolol Allergy Cannot Verified 09/18/17 21:42 Remember Home Meds: Home Meds Aspirin [Ecotrin] 81 mg PO DAILY 10/04/13 [History] Cholecalciferol (Vitamin D3) [Vitamin D3] 2,000 units PO DAILY 10/04/13 [History ] Clopidogrel Bisulfate [Clopidogrel] 75 mg PO DAILY 10/04/13 [History] Lisinopril 20 mg PO DAILY 10/04/13 [History] Metoprolol Succinate 50 mg PO DAILY 10/04/13 [History] Phenytoin Sodium Extended 200 mg PO BID 10/04/13 [History] Primidone 500 mg PO BID 10/04/13 [History] Acetaminophen 2 tab PO Q6H PRN 05/09/16 [History] atorvaSTATin Calcium [Atorvastatin Calcium] 10 mg PO BEDTIME 05/09/16 [History] Ibuprofen [Ibu] 400 mg PO Q4HR PRN 09/18/17 [History] Naproxen [Naprosyn] 500 mg PO Q12HR 09/18/17 [History] Phenytoin [Dilantin] 30 mg PO QPM 09/18/17 [History] Past Medical History HEENT History: Reports: Impaired Vision Cardiovascular History: Reports: Angina, CAD, High Cholesterol, Hypertension Respiratory History: Reports: None Genitourinary History: Reports: None DEVULCANIZER CHARGER History: Reports: 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 Uterine Bleeding Musculoskeletal History: Reports: Arthritis Neurological History: Reports: Seizure Psychiatric History: Reports: None Endocrine/Metabolic History: Reports: None Hematologic History: Reports: None Immunologic History: Reports: None Oncologic (Cancer) History: Reports: Breast Dermatologic History: Reports: None - Infectious Disease History Infectious Disease History: Reports: Chicken Pox, Mumps - Past Surgical History Oncologic Surgical History: Reports: Biopsy of Breast Social & Family History - Family History Family Medical History: Noncontributory Cardiac: Reports: Other (See Below) Other Cardiac Family History: "heart problems" - Tobacco Use Smoking Status *Q: Heavy Tobacco Smoker Years of Tobacco use: 40 Packs/Tins Daily: 0.7 - Caffeine Use Caffeine Use: Reports: Coffee, Tea - Recreational Drug Use Recreational Drug Use: No - Living Situation & Occupation Living situation: Reports: with Family Occupation: Retired Review of Systems - Review of Systems Review Of Systems: ROS reveals no pertinent complaints other than HPI. ED EXAM, GENERAL - Physical Exam Exam: See Below Exam Limited By: No Limitations General Appearance: Other (Drowsy) Eye Exam: Bilateral Eye: EOMI, PERRL Ears: Normal External Exam Nose: Normal Inspection Throat/Mouth: Normal Voice, Other (absent teeth) Head: Atraumatic, Normocephalic Neck: Non-Tender, Full Range of Motion, Other (swelling right parotid area). No : Limited Range of Motion Respiratory/Chest: No Respiratory Distress, Lungs Clear, Normal Breath Sounds Cardiovascular: Normal Peripheral Pulses, Regular Rate, Rhythm GI/Abdominal: Normal Bowel Sounds, Soft Extremities: Normal Inspection, Normal Range of Motion Neurological: Alert, Oriented, Normal Cognition (responses slow.). No: Sensory/ Motor Deficit Psychiatric: Flat Affect Skin Exam: Warm, Dry, Intact, Normal Color Course - Vital Signs Last Recorded V/S: Last Vital Signs Temp 100.9 F H 09/18/17 23:24 Pulse 72 09/18/17 23:24 Resp 22 H 09/18/17 23:24 BP 156/65 H 09/18/17 23:24 Pulse Ox 96 09/18/17 23:24 - Orders/Labs/Meds Orders: Active Orders 24 hr Category Date Time Status EKG 12 Lead [EKG Documentation Completion] [RC] URGENT Care 09/18/17 23:38 Active CULTURE BLOOD [BC] Stat Lab 09/18/17 23:48 Received CULTURE BLOOD [BC] Stat Lab 09/18/17 23:53 Results CULTURE URINE [RM] Stat Lab 09/18/17 22:25 Received DRUG SCREEN URINE BIORAD [URCHEM] Stat Lab 09/18/17 22:25 Ordered UA W/MICROSCOPIC [URIN] Stat Lab 09/18/17 22:25 Ordered Blood Culture x2 Reflex Set [OM.PC] Stat Oth 09/18/17 23:29 Ordered Labs: Laboratory Tests 09/18/17 09/18/17 09/18/17 Range/Units 22:17 22:17 22:17 WBC 10.4 H (5.0-10.0) 10^3/uL RBC 3.94 L (4.2-5.4) 10^6/uL Hgb 11.1 L D (12.0-16.0) g/dL Hct 35.4 L (37.0-47.0) % MCV 89.8 D (80-100) fL MCH 28.2 (27.0-34.0) pg MCHC 31.4 L (33.0-35.0) g/dL Plt Count 262 (150-450) 10^3/uL Neut % (Auto) 76.5 H (42.2-75.2) % Lymph % (Auto) 15.2 L (20.5-50.1) % [place] % (Auto) 6.8 (2-8) % Eos % (Auto) 1.2 (1.0-3.0) % Baso % (Auto) 0.3 (0.0-1.0) % PT 9.3 (9.0-12.0) SEC INR 0.9 (0.9-1.2) Sodium 138 (135-145) mmol/L Potassium 4.1 (3.6-5.0) mmol/L Chloride 105 (101-111) mmol/L Carbon Dioxide 25.0 (21.0-31.0) mmol/L Anion Gap 12.1 BUN 13 (7-18) mg/dL Creatinine 1.0 (0.6-1.3) mg/dL Est Cr Clr Drug Dosing 51.80 mL/min Estimated GFR (MDRD) 55 BUN/Creatinine Ratio 13.00 Glucose 107 H (74-105) mg/dL Lactic Acid (0.5-2.2) mmol/L Calcium 8.6 (8.4-10.2) mg/dl Magnesium 2.1 (1.8-2.5) mg/dL Total Bilirubin 0.3 (0.2-1.0) mg/dL AST 14 (10-42) IU/L ALT 13 (10-60) IU/L Alkaline Phosphatase 92 (42-121) IU/L Ammonia (11-35) umol/L Total Protein 6.6 L (6.7-8.2) g/dl Albumin 3.6 (3.2-5.5) g/dl Globulin 3.0 Albumin/Globulin Ratio 1.20 Urine Color (YELLOW) Urine Appearance (CLEAR) Urine pH (5.0-9.0) Ur Specific Hamm[place] (1.005-1.030) Urine Protein (NEGATIVE) Urine Glucose (UA) (NEGATIVE) Urine Ketones (NEGATIVE) Urine Occult Blood (NEGATIVE) Urine Nitrite (NEGATIVE) Urine Bilirubin (NEGATIVE) Urine Urobilinogen (0.2-1.0) mg/dL Ur Leukocyte Esterase (NEGATIVE) Urine RBC /HPF Urine WBC (0-5/HPF) /HPF Ur Epithelial Cells /HPF Urine Bacteria (0-FEW/HPF) /HPF Urine Opiates Screen (NEGATIVE) Ur Oxycodone Screen (NEGATIVE) Urine Methadone Screen (NEGATIVE) Ur Barbiturates Screen (NEGATIVE) U Tricyclic Antidepress (NEGATIVE) Ur Phencyclidine Scrn (NEGATIVE) Ur Amphetamine Screen (NEGATIVE) U Methamphetamines Scrn (NEGATIVE) Urine MDMA Screen (NEGATIVE) U Benzodiazepines Scrn (NEGATIVE) Urine Cocaine Screen (NEGATIVE) U Marijuana (THC) Screen (NEGATIVE) 09/18/17 09/18/17 09/18/17 Range/Units 22:17 22:17 22:25 WBC (5.0-10.0) 10^3/uL RBC (4.2-5.4) 10^6/uL Hgb (12.0-16.0) g/dL Hct (37.0-47.0) % MCV (80-100) fL MCH (27.0-34.0) pg MCHC (33.0-35.0) g/dL Plt Count (150-450) 10^3/uL Neut % (Auto) (42.2-75.2) % Lymph % (Auto) (20.5-50.1) % [place] % (Auto) (2-8) % Eos % (Auto) (1.0-3.0) % Baso % (Auto) (0.0-1.0) % PT (9.0-12.0) SEC INR (0.9-1.2) Sodium (135-145) mmol/L Potassium (3.6-5.0) mmol/L Chloride (101-111) mmol/L Carbon Dioxide (21.0-31.0) mmol/L Anion Gap BUN (7-18) mg/dL Creatinine (0.6-1.3) mg/dL Est Cr Clr Drug Dosing mL/min Estimated GFR (MDRD) BUN/Creatinine Ratio Glucose (74-105) mg/dL Lactic Acid 1.2 (0.5-2.2) mmol/L Calcium (8.4-10.2) mg/dl Magnesium (1.8-2.5) mg/dL Total Bilirubin (0.2-1.0) mg/dL AST (10-42) IU/L ALT (10-60) IU/L Alkaline Phosphatase (42-121) IU/L Ammonia 18 (11-35) umol/L Total Protein (6.7-8.2) g/dl Albumin (3.2-5.5) g/dl Globulin Albumin/Globulin Ratio Urine Color Yellow (YELLOW) Urine Appearance Cloudy (CLEAR) Urine pH 7.0 (5.0-9.0) Ur Specific [place] 1.015 (1.005-1.030) Urine Protein 30 H (NEGATIVE) Urine Glucose (UA) Negative (NEGATIVE) Urine Ketones Negative (NEGATIVE) Urine Occult Blood Trace-intact H (NEGATIVE) Urine Nitrite Positive H (NEGATIVE) Urine Bilirubin Negative (NEGATIVE) Urine Urobilinogen 0.2 (0.2-1.0) mg/dL Ur Leukocyte Esterase Negative (NEGATIVE) Urine RBC 0-5 /HPF Urine WBC 0-5 (0-5/HPF) /HPF Ur Epithelial Cells Moderate H /HPF Urine Bacteria Many H (0-FEW/HPF) /HPF Urine Opiates Screen (NEGATIVE) Ur Oxycodone Screen (NEGATIVE) Urine Methadone Screen (NEGATIVE) Ur Barbiturates Screen (NEGATIVE) U Tricyclic Antidepress (NEGATIVE) Ur Phencyclidine Scrn (NEGATIVE) Ur Amphetamine Screen (NEGATIVE) U Methamphetamines Scrn (NEGATIVE) Urine MDMA Screen (NEGATIVE) U Benzodiazepines Scrn (NEGATIVE) Urine Cocaine Screen (NEGATIVE) U Marijuana (THC) Screen (NEGATIVE) 09/18/17 Range/Units 22:25 WBC (5.0-10.0) 10^3/uL RBC (4.2-5.4) 10^6/uL Hgb (12.0-16.0) g/dL Hct (37.0-47.0) % MCV (80-100) fL MCH (27.0-34.0) pg MCHC (33.0-35.0) g/dL Plt Count (150-450) 10^3/uL Neut % (Auto) (42.2-75.2) % Lymph % (Auto) (20.5-50.1) % [place] % (Auto) (2-8) % Eos % (Auto) (1.0-3.0) % Baso % (Auto) (0.0-1.0) % PT (9.0-12.0) SEC INR (0.9-1.2) Sodium (135-145) mmol/L Potassium (3.6-5.0) mmol/L Chloride (101-111) mmol/L Carbon Dioxide (21.0-31.0) mmol/L Anion Gap BUN (7-18) mg/dL Creatinine (0.6-1.3) mg/dL Est Cr Clr Drug Dosing mL/min Estimated GFR (MDRD) BUN/Creatinine Ratio Glucose (74-105) mg/dL Lactic Acid (0.5-2.2) mmol/L Calcium (8.4-10.2) mg/dl Magnesium (1.8-2.5) mg/dL Total Bilirubin (0.2-1.0) mg/dL AST (10-42) IU/L ALT (10-60) IU/L Alkaline Phosphatase (42-121) IU/L Ammonia (11-35) umol/L Total Protein (6.7-8.2) g/dl Albumin (3.2-5.5) g/dl Globulin Albumin/Globulin Ratio Urine Color (YELLOW) Urine Appearance (CLEAR) Urine pH (5.0-9.0) Ur Specific [place] (1.005-1.030) Urine Protein (NEGATIVE) Urine Glucose (UA) (NEGATIVE) Urine Ketones (NEGATIVE) Urine Occult Blood (NEGATIVE) Urine Nitrite (NEGATIVE) Urine Bilirubin (NEGATIVE) Urine Urobilinogen (0.2-1.0) mg/dL Ur Leukocyte Esterase (NEGATIVE) Urine RBC /HPF Urine WBC (0-5/HPF) /HPF Ur Epithelial Cells /HPF Urine Bacteria (0-FEW/HPF) /HPF Urine Opiates Screen Negative (NEGATIVE) Ur Oxycodone Screen Negative (NEGATIVE) Urine Methadone Screen Negative (NEGATIVE) Ur Barbiturates Screen Positive H (NEGATIVE) U Tricyclic Antidepress Negative (NEGATIVE) Ur Phencyclidine Scrn Negative (NEGATIVE) Ur Amphetamine Screen Negative (NEGATIVE) U Methamphetamines Scrn Negative (NEGATIVE) Urine MDMA Screen Negative (NEGATIVE) U Benzodiazepines Scrn Negative (NEGATIVE) Urine Cocaine Screen Negative (NEGATIVE) U Marijuana (THC) Screen Negative (NEGATIVE) Meds: Medications Discontinued Medications Generic Name Dose Route Start Last Admin Trade Name Freq PRN Reason Stop Dose Admin Aspirin 325 mg 09/18/17 23:36 09/18/17 23:45 Aspirin PO 09/18/17 23:37 325 mg ONETIME ONE Administration Ceftriaxone Sodium 1 gm 09/18/17 23:36 09/18/17 23:52 Rocephin IVPUSH 09/18/17 23:37 1 gm ONETIME ONE Administration - Radiology Interpretation Free Text/Narrative:: [facility] - Final Radiology Report Call: [phone] assistance Online chat: [email or web address] Name: JACK LEWIS Age: 67Years F Date: 09/18/2017 SSN: -- : 1950 Study: CT HEAD WO Requesting Physician: RUSSELL BISWAS Images: 160 Addl Studies: [id number] - CT MAXILLOFACIAL/SINUSES WO (1) Provided Clinical History: Contrast: Without Contrast Medium: Contrast Amount: Contrast Method: Page [address] HEAD/FACIAL: 09/18/2017 10:29 PM PROVIDED CLINICAL HISTORY: Weakness TECHNIQUE: Noncontrast axial head and facial CT scan. Coronal and sagittal reformatted images are submitted. This CT exam was performed using one or more of the following dose reduction techniques: automated exposure control, adjustment of the mA and/or kV according to patient size, and/or use of iterative reconstruction technique. COMPARISON: Brain MRI dated 08/23/[address] scan dated 03/25/2017. FINDINGS: The images were not obtained parallel to the skull base, which can result in study limitations, and in this case, patchy left greater than right occipital hypodensities (for example see image #18 of series #5) probably represent artifacts related to beam hardening from the skull base, although the differential also includes less likely possibilities including posterior reversible encephalopathy syndrome (PRES) and bilateral occipital subacute infarcts. There are also old lacunar infarcts within the right caudate body and cao radiata, within the superior left frontal periventricular white matter, and within the thalami bilaterally, and there are patchy mildly hypodense chronic senescent small vessel ischemic changes within the periventricular white matter bilaterally. No other abnormal foci of altered attenuation within the remaining cerebral or cerebellar parenchyma. No evidence for acute territorial infarct. The known small right occipitoparietal extra-axial neoplasm is not distinctly identified on this unenhanced CT. Again seen is enlargement of the frontal sulci bilaterally, consistent with cerebral cortical atrophy. The ventricles and remaining sulci are otherwise unremarkable for age, without midline shift or hydrocephalus. Empty sella again demonstrated. No abnormal extraaxial fluid or air collection; no intracranial hemorrhage. DEBBIEJACK | Final Radiology Report CONFIDENTIALITY STATEMENT This report is intended only for use by the referring physician, and only in accordance with law. If you received this in error, call [phone]. Page 2 of 2 No acute bony trauma. 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 There is heterogeneous attenuation of the visualized osseous structures, including sclerotic foci within the skull (for example see image #31 of series #6), which is nonspecific , but bone metastases cannot be excluded in this patient who has a history of breast cancer per prior imaging reports. Again seen is fluid nearly completely opacifying the mastoid air cells bilaterally, consistent with chronic mastoiditis. There is moderate right sphenoid and mild left ethmoid sinus mucosal thickening , but the paranasal sinuses are otherwise essentially clear. The orbits, infratemporal fossae, and visualized portions of the mandible and upper cervical spine are unremarkable. IMPRESSION: --The images were not obtained parallel to the skull base, which can result in study limitations, and in this case, patchy left greater than right occipital hypodensities probably represent artifacts related to beam hardening from the skull base, although the differential also includes less likely possibilities including posterior reversible encephalopathy syndrome (PRES) and bilateral occipital subacute infarcts; further evaluation with brain MRI may be obtained if indicated by the clinical presentation. --There is heterogeneous attenuation of the visualized osseous structures, including sclerotic foci within the skull, which is nonspecific, but bone metastases cannot be excluded in this patient who has a history of breast cancer per prior imaging reports; consider further evaluation with nuclear medicine whole body bone scan nonemergently if clinically indicated. --Again seen is fluid nearly completely opacifying the mastoid air cells bilaterally, consistent with chronic mastoiditis. 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 --See additional comments above; no intracranial hemorrhage or mass effect; the known small right occipitoparietal extra-axial neoplasm is not distinctly identified on this unenhanced CT. THIS REPORT CONTAINS FINDINGS THAT MAY BE CRITICAL TO PATIENT CARE. The findings were verbally communicated via telephone conference with RUSSELL BISWAS at 11:04 PM CDT on 09/18/2017. The findings were acknowledged and understood. Thank you for allowing us to participate in the care of your patient. Dictated and Authenticated by: Maldonado Mejia MD - Re-Assessments/Exams Free Text/Narrative Re-Assessment/Exam: NIH score 3. Exam variable, Initial request fro demonstration for movement and strength some flaccidity of upper and lower extremities, 2 response immediately following strong and equal bilaterally, full movement upper and lower including fine motor control present. Good strength against resistance. TC consult Dr Valladares, accepting of patient in transfer for further evaluation. Tx via [facility]. able to tx with minimal assist from ED cot to EMS [facility]. 09/19/17 03:24 Departure - Departure Time of Disposition: 00:10 Disposition: DC/Tfer to Acute Hospital 02 Condition: Undetermined Clinical Impression: Abnormal head CT, LUE weakness UTI (urinary tract infection) Qualifiers: Urinary tract infection type: acute cystitis Hematuria presence: with hematuria Qualified Code(s): N30.01 - Acute cystitis with hematuria - Discharge Information Referrals: PCP,Unobtain [Primary Care Provider] - Forms: ED Department Discharge - My Orders Last 24 Hours: My Active Orders 09/18/17 22:25 CULTURE URINE [RM] Stat DRUG SCREEN URINE BIORAD [URCHEM] Stat UA W/MICROSCOPIC [URIN] Stat 09/18/17 23:29 Blood Culture x2 Reflex Set [OM.PC] Stat 09/18/17 23:38 EKG 12 Lead [EKG Documentation Completion] [RC] URGENT 09/18/17 23:48 CULTURE BLOOD [BC] Stat 09/18/17 23:53 CULTURE BLOOD [BC] Stat - Assessment/Plan Last 24 Hours: My Active Orders 09/18/17 22:25 CULTURE URINE [RM] Stat DRUG SCREEN URINE BIORAD [URCHEM] Stat UA W/MICROSCOPIC [URIN] Stat 09/18/17 23:29 Blood Culture x2 Reflex Set [OM.PC] Stat 09/18/17 23:38 EKG 12 Lead [EKG Documentation Completion] [RC] URGENT 09/18/17 23:48 CULTURE BLOOD [BC] Stat 09/18/17 23:53 CULTURE BLOOD [BC] Stat
[2017-09-18 23:25] VITALS: BP 156/65
[2017-09-18] MEDS ORDERED: Aspirin 325 MG Tab PO ONE (23:36)
[2017-09-18] MEDS ORDERED: cefTRIAXone 1 GM Vial IVPUSH ONE (23:36)
--- NOTE | 2017-09-20 14:12 | EKG ---
09/18/2017 - JACK LEWIS - FINDINGS: A 12-lead EKG shows normal sinus rhythm with a left ventricular hypertrophy. T-wave inversions noted diffusely from V2 to V6, and nonspecific ST-T wave changes noted on lead III. [facility] /[id number]
== END 2017-09-19 00:04 ==
LOC: DL.ED 21:35
DX: M62.81 Muscle weakness (generalized) (principal); N30.01 Acute cystitis with hematuria; R93.0 Abnormal findings on diagnostic imaging of skull and head, not elsewhere classified; E78.00 Pure hypercholesterolemia, unspecified; I10 Essential (primary) hypertension; F17.210 Nicotine dependence, cigarettes, uncomplicated; Z88.8 Allergy status to other drugs, medicaments and biological substances; Z79.82 Long term (current) use of aspirin; Z79.899 Other long term (current) drug therapy
CPT/HCPCS: 36415; 70450; 80053; 80305-QW; 81001; 82140; 83605; 83735; 85025; 85610; 87040; 87086; 87088; 87186; 93005; 93010; 96374; 99284; 99285; A9270-GY; J0696

== ENCOUNTER 2018-03-27 13:55 | Emergency (ER) | payer MEDICARE, OTHER ==
[2018-03-27 14:13] VITALS: BP 119/66
--- NOTE | 2018-03-27 14:33 | EDM.PDOC ---
ED HPI GENERAL MEDICAL PROBLEM - General Chief Complaint: Respiratory Problem Stated Complaint: COUGH Time Seen by Provider: 03/27/18 14:20 Source of Information: Reports: Patient History Limitations: Reports: No Limitations - History of Present Illness INITIAL COMMENTS - FREE TEXT/NARRATIVE: This 67 yo female patient reports to the ED with a cough, shortness of breath and not feeling well over the past 2 weeks. The patient reports she has been taking cough medications for temporary symptom relief. The patient reports she has not been seen in the clinic and has not attempted to get an appointment in the clinic for her current symptoms. Duration: Week(s): (2), Constant, Getting Worse Location: Reports: Chest Quality: Reports: Other Severity: Moderate Improves with: Reports: None Worsens with: Reports: None Context: Reports: Other Associated Symptoms: Reports: Cough, Shortness of Breath Treatments ICER AIR CONDITIONING: Reports: Other Medication(s) (Cough medication ) - Related Data Allergies Allergy/AdvReac Type Severity Reaction Status Date / Time atenolol Allergy Cannot Verified 03/27/18 14:07 Remember Home Meds: Home Meds Aspirin [Ecotrin] 81 mg PO DAILY 10/04/13 [History] Cholecalciferol (Vitamin D3) [Vitamin D3] 2,000 units PO DAILY 10/04/13 [History ] Clopidogrel Bisulfate [Clopidogrel] 75 mg PO DAILY 10/04/13 [History] Lisinopril 20 mg PO DAILY 10/04/13 [History] Metoprolol Succinate 50 mg PO DAILY 10/04/13 [History] Phenytoin Sodium Extended 200 mg PO BID 10/04/13 [History] Primidone 500 mg PO BID 10/04/13 [History] Acetaminophen 2 tab PO Q6H PRN 05/09/16 [History] atorvaSTATin Calcium [Atorvastatin Calcium] 10 mg PO BEDTIME 05/09/16 [History] Ibuprofen [Ibu] 400 mg PO Q4HR PRN 09/18/17 [History] Naproxen [Naprosyn] 500 mg PO Q12HR 09/18/17 [History] Phenytoin [Dilantin] 30 mg PO QPM 09/18/17 [History] Past Medical History HEENT History: Reports: Hard of Hearing, Impaired Vision Cardiovascular History: Reports: Angina, CAD, High Cholesterol, Hypertension Respiratory History: Reports: None Gastrointestinal History: Reports: None Genitourinary History: Reports: None 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: 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 Uterine Bleeding Musculoskeletal History: Reports: Arthritis Neurological History: Reports: Seizure Psychiatric History: Reports: None Endocrine/Metabolic History: Reports: None Hematologic History: Reports: None Immunologic History: Reports: None Oncologic (Cancer) History: Reports: Breast Dermatologic History: Reports: None - Infectious Disease History Infectious Disease History: Reports: Chicken Pox, Mumps - Past Surgical History Head Surgeries/Procedures: Reports: None Oncologic Surgical History: Reports: Biopsy of Breast Social & Family History - Family History Family Medical History: Noncontributory Cardiac: Reports: Other (See Below) Other Cardiac Family History: "heart problems" - Tobacco Use Smoking Status *Q: Former Smoker Used Tobacco, but Quit: Yes Month/Year Tobacco Last Used: ? - Caffeine Use Caffeine Use: Reports: Coffee - Recreational Drug Use Recreational Drug Use: No - Living Situation & Occupation Living situation: Reports: with Family Occupation: Retired ED ROS GENERAL - Review of Systems Review Of Systems: ROS reveals no pertinent complaints other than HPI. ED EXAM, GENERAL - Physical Exam Exam: See Below Exam Limited By: No Limitations General Appearance: Alert, WD/WN, Moderate Distress Eye Exam: Bilateral Eye: EOMI, Normal Inspection, PERRL Ears: Normal External Exam, Normal Canal, Hearing Grossly Normal, Normal TMs Nose: Normal Inspection, Normal Mucosa, No Blood Throat/Mouth: Normal Inspection, Normal Lips, Normal Teeth, Normal Gums, Normal Oropharynx, Normal Voice, No Airway Compromise Neck: Normal Inspection, Supple, Non-Tender, Full Range of Motion Respiratory/Chest: No Respiratory Distress, No Accessory Muscle Use, Chest Non- Tender, Rhonchi (diffuse) Cardiovascular: Normal Peripheral Pulses, Regular Rate, Rhythm, No Edema, No Gallop, No JVD, No Murmur, No Rub GI/Abdominal: Normal Bowel Sounds, Soft, Non-Tender, No Organomegaly, No Distention, No Abnormal Bruit, No Mass (Female) Exam: Deferred Rectal (Female) Exam: Deferred Back Exam: Normal Inspection, Full Range of Motion, NT Extremities: Normal Inspection, Normal Range of Motion, Non-Tender, Normal Capillary Refill, No Pedal Edema Neurological: Alert, Oriented, CN II-XII Intact, Normal Cognition, Normal Gait, Normal Reflexes, No Motor/Sensory Deficits Psychiatric: Normal Affect, Normal Mood Skin Exam: Warm, Dry, Intact, Normal Color, No Rash Lymphatic: No Adenopathy Course - Vital Signs Last Recorded V/S: Last Vital Signs Temp 37.1 C 03/27/18 14:10 Pulse 66 03/27/18 14:10 Resp 18 03/27/18 14:10 BP 119/66 03/27/18 14:10 Pulse Ox 94 L 03/27/18 14:10 - Orders/Labs/Meds Orders: Active Orders 24 hr Category Date Time Status CULTURE BLOOD [BC] Stat Lab 03/27/18 14:45 Received Labs: Laboratory Tests 03/27/18 03/27/18 03/27/18 Range/Units 14:45 14:45 14:45 WBC 3.5 L (5.0-10.0) 10^3/uL RBC 4.38 (4.2-5.4) 10^6/uL Hgb 10.9 L (12.0-16.0) g/dL Hct 35.4 L (37.0-47.0) % MCV 80.8 D (80-100) fL MCH 24.9 L (27.0-34.0) pg MCHC 30.8 L (33.0-35.0) g/dL Plt Count 264 (150-450) 10^3/uL Neut % (Auto) 61.5 (42.2-75.2) % Lymph % (Auto) 23.6 (20.5-50.1) % Giles % (Auto) 9.4 H (2-8) % Eos % (Auto) 4.6 H (1.0-3.0) % Baso % (Auto) 0.9 (0.0-1.0) % Sodium 135 (135-145) mmol/L Potassium 3.6 (3.6-5.0) mmol/L Chloride 101 (101-111) mmol/L Carbon Dioxide 23.0 (21.0-31.0) mmol/L Anion Gap 14.6 BUN 16 (7-18) mg/dL Creatinine 0.9 (0.6-1.3) mg/dL Est Cr Clr Drug Dosing 53.10 mL/min Estimated GFR (MDRD) > 60 BUN/Creatinine Ratio 17.77 Glucose 103 (74-105) mg/dL Lactic Acid 0.9 (0.5-2.2) mmol/L Calcium 8.4 (8.4-10.2) mg/dl Total Bilirubin 0.3 (0.2-1.0) mg/dL AST 15 (10-42) IU/L ALT 13 (10-60) IU/L Alkaline Phosphatase 101 (42-121) IU/L Total Protein 6.5 L (6.7-8.2) g/dl Albumin 3.5 (3.2-5.5) g/dl Globulin 3.0 Albumin/Globulin Ratio 1.17 Meds: Medications Discontinued Medications Generic Name Dose Route Start Last Admin Trade Name lAanq PRN Reason Stop Dose Admin Ceftriaxone Sodium 1 gm/ 0 gm 03/27/18 15:18 Lidocaine HCl 2.1 ml IM 03/27/18 15:19 ONETIME ONE Departure - Departure Time of Disposition: 15:20 Disposition: Home, Self-Care 01 Condition: Fair Clinical Impression: Bronchitis - Discharge Information *PRESCRIPTION DRUG MONITORING PROGRAM REVIEWED*: Not Applicable *COPY OF PRESCRIPTION DRUG MONITORING REPORT IN PATIENT L[place]ORE: Not Applicable Instructions: Acute Bronchitis, Adult, [id number] Forms: ED Department Discharge Care Plan Goals: The patient was advised of the examination, lab and x-ray results during the visit. The patient was given an injection of Rocephin while in the ED. The patient was discharged with a script for Azithromycin (250 mg) #6 to take 2 by mouth on day 1 and 1 by mouth on days 2-5. The patient was encouraged to follow- up with her primary care facility next week for continued evaluation and further management. If the patient has any additional symptoms or concerns, the patient should visit her primary care facility or return to the emergency department. - My Orders Last 24 Hours: My Active Orders 03/27/18 14:45 CULTURE BLOOD [BC] Stat - Assessment/Plan Last 24 Hours: My Active Orders 03/27/18 14:45 CULTURE BLOOD [BC] Stat
--- NOTE | 2018-03-27 15:08 | CR ---
Clinical history: 67-year-old female cough and shortness of breath. Interpretation: Abnormal cardiac silhouette this patient with sternotomy wires, mediastinal clips and lingular fibrosis. No increase in heart size, new cephalization of flow, alveolar edema or dependent pleural fluid accumulation when compared to AP portable film 05 May 2017. No new lung mass hilar lymphadenopathy or focal lobar pneumonia. CONCLUSION: No acute new cardiopulmonary abnormality since 05 May 2017.
[2018-03-27 15:11] LABS: ANION GAP 14.6; CHLORIDE,CL 101 mmol/L (101-111); SODIUM,NA 135 mmol/L (135-145)
[2018-03-27] MEDS ORDERED: cefTRIAXone 1 GM, Lidocaine 1% 2.1 ML IM ONE ×2 (15:18)
== END 2018-03-27 15:26 | disposition home or self-care (01) ==
LOC: DL.ED 13:55
DX: J40 Bronchitis, not specified as acute or chronic (principal); I10 Essential (primary) hypertension; Z79.82 Long term (current) use of aspirin; Z79.899 Other long term (current) drug therapy; Z87.891 Personal history of nicotine dependence; Z88.8 Allergy status to other drugs, medicaments and biological substances
CPT/HCPCS: 36415; 71046; 80053; 83605; 85025; 87040; 96374; 99284; J0696; J2001; 99283

== ENCOUNTER 2018-04-02 20:41 | Emergency (ER) | payer MEDICARE, OTHER ==
[2018-04-02] MEDS ORDERED: Benzonatate 100 MG Cap PO ONE (20:42)
[2018-04-02] MEDS ORDERED: Ketorolac 30 MG/ML SDV IM ONE (20:51)
[2018-04-02] MEDS ORDERED: Albuterol/Ipratropium 3.0-0.5 MG/3 ML Neb Soln NEB ONE (20:52)
[2018-04-02] MEDS ORDERED: Budesonide 0.5 MG/2 ML Neb Susp NEB ONE (20:52)
[2018-04-02] MEDS ORDERED: predniSONE 20 MG Tab PO ONE (20:54)
--- NOTE | 2018-04-02 20:58 | EDM.PDOC ---
ED HPI GENERAL MEDICAL PROBLEM - General Chief Complaint: Respiratory Problem Stated Complaint: COMING BY AMBULANCE Time Seen by Provider: 04/02/18 20:50 Source of Information: Reports: Patient History Limitations: Reports: No Limitations - History of Present Illness INITIAL COMMENTS - FREE TEXT/NARRATIVE: patient comes emergency department today with continued complaints of cough wheezing and pain in her back when she coughs. The patient was seen in the emergency department a couple of days ago and diagnosed with bronchitis. She was only sent home with Zithromax. She has been taking her Zithromax with absolutely no change of her symptomology or improvement. She continues to cough quite frequently and her back hurts every time she coughs. No pain in her chest. No weakness dizziness lightheaded. No fever no chills. No syncope or palpitations. No abdominal pain nausea or vomiting. Middle Back Pain Score (Numeric/FACES): 10 - Related Data Allergies Allergy/AdvReac Type Severity Reaction Status Date / Time atenolol Allergy Cannot Verified 04/02/18 20:47 Remember Home Meds: Home Meds Aspirin [Ecotrin] 81 mg PO DAILY 10/04/13 [History] Cholecalciferol (Vitamin D3) [Vitamin D3] 2,000 units PO DAILY 10/04/13 [History ] Clopidogrel Bisulfate [Clopidogrel] 75 mg PO DAILY 10/04/13 [History] Lisinopril 20 mg PO DAILY 10/04/13 [History] Metoprolol Succinate 50 mg PO DAILY 10/04/13 [History] Phenytoin Sodium Extended 200 mg PO BID 10/04/13 [History] Primidone 500 mg PO BID 10/04/13 [History] Acetaminophen 2 tab PO Q6H PRN 05/09/16 [History] atorvaSTATin Calcium [Atorvastatin Calcium] 10 mg PO BEDTIME 05/09/16 [History] Ibuprofen [Ibu] 400 mg PO Q4HR PRN 09/18/17 [History] Naproxen [Naprosyn] 500 mg PO Q12HR 09/18/17 [History] Phenytoin [Dilantin] 30 mg PO QPM 09/18/17 [History] Past Medical History HEENT History: Reports: Hard of Hearing, Impaired Vision Cardiovascular History: Reports: Angina, CAD, High Cholesterol, Hypertension Respiratory History: Reports: None Gastrointestinal History: Reports: None Genitourinary History: Reports: None 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: 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 Uterine Bleeding Musculoskeletal History: Reports: Arthritis Neurological History: Reports: Seizure Psychiatric History: Reports: None Endocrine/Metabolic History: Reports: None Hematologic History: Reports: None Immunologic History: Reports: None Oncologic (Cancer) History: Reports: Breast Dermatologic History: Reports: None - Infectious Disease History Infectious Disease History: Reports: Chicken Pox, Mumps - Past Surgical History Head Surgeries/Procedures: Reports: None Oncologic Surgical History: Reports: Biopsy of Breast Social & Family History - Family History Family Medical History: Noncontributory Cardiac: Reports: Other (See Below) Other Cardiac Family History: "heart problems" - Tobacco Use Smoking Status *Q: Current Every Day Smoker Years of Tobacco use: 40 Packs/Tins Daily: 0.5 - Caffeine Use Caffeine Use: Reports: Coffee, Soda - Recreational Drug Use Recreational Drug Use: No - Living Situation & Occupation Living situation: Reports: with Family Occupation: Retired ED ROS GENERAL - Review of Systems Review Of Systems: ROS reveals no pertinent complaints other than HPI. ED EXAM, GENERAL - Physical Exam Exam: See Below Free Text/Narrative:: the patient has a very congested nonproductive cough. She has no increased work of breathing or dyspnea on physical exam. Exam Limited By: No Limitations General Appearance: Alert, No Apparent Distress Ears: Normal External Exam, Normal TMs Nose: Normal Inspection, Normal Mucosa Throat/Mouth: Normal Inspection, Normal Lips, Normal Teeth, Normal Oropharynx, Normal Voice, No Airway Compromise Head: Atraumatic, Normocephalic Neck: Normal Inspection, Supple Respiratory/Chest: No Respiratory Distress, Chest Non-Tender, Decreased Breath Sounds (throughout), Rhonchi (right middle and lower), Wheezing (bilateral more on the right than the left. Expiratory primarily.). No: Crackles, Rales, Stridor, Accessory Muscle Use, Retractions Cardiovascular: Normal Peripheral Pulses, Regular Rate, Rhythm Peripheral Pulses: 2+: Radial (L), Radial (R), Posterior Tibial (L), Posterior Tibial (R), Dorsalis Pedis (L), Dorsalis Pedis (R) GI/Abdominal: Normal Bowel Sounds, Soft, Non-Tender Back Exam: Normal Inspection. No: CVA Tenderness (L), CVA Tenderness (R) Extremities: Normal Inspection, Normal Range of Motion, Non-Tender, Normal Capillary Refill, Pedal Edema (cant pretibial edema bilaterally.) Neurological: Alert, Oriented, Normal Cognition, No Motor/Sensory Deficits Psychiatric: Normal Affect, Normal Mood Skin Exam: Warm, Dry, Intact, Normal Color, No Rash Course - Vital Signs Last Recorded V/S: Last Vital Signs Temp 36.7 C 04/02/18 20:41 Pulse 59 L 04/02/18 20:41 Resp 18 04/02/18 20:41 BP 163/76 H 04/02/18 20:41 Pulse Ox 94 L 04/02/18 20:41 - Orders/Labs/Meds Orders: Active Orders 24 hr Category Date Time Status RT Aerosol Therapy [RC] ASDIRECTED Care 04/02/18 20:52 Active RT Post Treatment Assessment [RC] Click to Edit Care 04/02/18 22:00 Active RT Pre-Treatment Assessment [RC] Click to Edit Care 04/02/18 22:00 Active Labs: Laboratory Tests 04/02/18 04/02/18 04/02/18 Range/Units 21:15 21:15 21:15 WBC 5.2 (5.0-10.0) 10^3/uL RBC 4.51 (4.2-5.4) 10^6/uL Hgb 11.2 L (12.0-16.0) g/dL Hct 35.9 L (37.0-47.0) % MCV 79.6 L (80-100) fL MCH 24.8 L (27.0-34.0) pg MCHC 31.2 L (33.0-35.0) g/dL Plt Count 318 (150-450) 10^3/uL Neut % (Auto) 57.1 (42.2-75.2) % Lymph % (Auto) 34.4 (20.5-50.1) % Pope % (Auto) 6.0 (2-8) % Eos % (Auto) 1.9 (1.0-3.0) % Baso % (Auto) 0.6 (0.0-1.0) % Sodium 137 (135-145) mmol/L Potassium 3.9 (3.6-5.0) mmol/L Chloride 103 (101-111) mmol/L Carbon Dioxide 24.0 (21.0-31.0) mmol/L Anion Gap 13.9 BUN 15 (7-18) mg/dL Creatinine 0.8 (0.6-1.3) mg/dL Est Cr Clr Drug Dosing 59.73 mL/min Estimated GFR (MDRD) > 60 BUN/Creatinine Ratio 18.75 Glucose 98 (74-105) mg/dL Calcium 8.6 (8.4-10.2) mg/dl Total Bilirubin 0.3 (0.2-1.0) mg/dL AST 19 (10-42) IU/L ALT 15 (10-60) IU/L Alkaline Phosphatase 98 (42-121) IU/L C-Reactive Protein 0.5 (0.0-1.3) mg/dL Total Protein 6.9 (6.7-8.2) g/dl Albumin 3.6 (3.2-5.5) g/dl Globulin 3.3 Albumin/Globulin Ratio 1.09 Meds: Medications Discontinued Medications Generic Name Dose Route Start Last Admin Trade Name Freq PRN Reason Stop Dose Admin Albuterol 6.7 gm 04/02/18 22:00 Proventil Hfa INH 04/02/18 22:01 ONETIME ONE Albuterol/Ipratropium 3 ml 04/02/18 20:52 04/02/18 21:12 Duoneb 3.0-0.5 Mg/3 Ml NEB 04/02/18 20:53 3 ml ONETIME ONE Administration Budesonide 1 mg 04/02/18 20:52 04/02/18 21:26 Pulmicort NEB 04/02/18 20:53 1 mg ONETIME ONE Administration Budesonide Confirm 04/02/18 21:25 04/02/18 22:01 Pulmicort Administered 04/02/18 21:26 Not Given Dose 0.5 mg .ROUTE .STK-MED ONE Ketorolac Tromethamine 30 mg 04/02/18 20:51 04/02/18 21:08 Toradol IM 04/02/18 20:52 30 mg ONETIME ONE Administration Prednisone 40 mg 04/02/18 20:54 04/02/18 21:08 Prednisone PO 04/02/18 20:55 40 mg ONETIME ONE Administration - Radiology Interpretation Free Text/Narrative:: Chest x-ray clear lungs. Small bilateral pleural effusions. - Re-Assessments/Exams Free Text/Narrative Re-Assessment/Exam: 04/02/18 20:57 ketorolac 30 mg IM. Prednisone 40 mg by mouth. Budesonide 1 mg nebulizer. DuoNeb nebulizer 04/02/18 22:08 Patient feels much better after the above therapy. Her chest x-ray is negative as well as her laboratory evaluation. She has a negative white count as well as CRP. I do not feel the need to give her any antibiotics as acute bronchitis is typically nonbacterial in nature. She has no white blood cell count CRP is normal and been on a course of azithromycin although she has not received any steroids for the inflammatory process of bronchitis. I will send her home with an MDI inhaler as well as Tessalon Perles and prednisone. She is comfortable with this plan and her questions are answered. 04/02/18 22:09 Departure - Departure Time of Disposition: 22:00 Disposition: Home, Self-Care 01 Clinical Impression: Bronchitis - Discharge Information Instructions: How to Use a Metered Dose Inhaler, Acute Bronchitis, Adult, Easy- to-Read Forms: ED Department Discharge Additional Instructions: Lots of fluids over the next few days. Ibuprofen as needed for the back pain. Albuterol MDI inhaler with spacer, 2 puffs every 4-6 hrs as needed for cough wheezing SOB. 1 sent home from the ED. Prednisone 40mg a day for the next 5 days. Start 04/03/18. RX given to the patient. Tessalon Pearls, 1 tab three times a day as needed for cough. RX given to the patient. Return to the ED if new or worsening symptoms Follow up with primary care provider in the next 4-6 days if not improving sooner if worse. - My Orders Last 24 Hours: My Active Orders 04/02/18 20:52 RT Aerosol Therapy [RC] ASDIRECTED 04/02/18 22:00 RT Post Treatment Assessment [RC] Click to Edit RT Pre-Treatment Assessment [RC] Click to Edit - Assessment/Plan Last 24 Hours: My Active Orders 04/02/18 20:52 RT Aerosol Therapy [RC] ASDIRECTED 04/02/18 22:00 RT Post Treatment Assessment [RC] Click to Edit RT Pre-Treatment Assessment [RC] Click to Edit Assessment:: Bronchitis. Plan: Lots of fluids over the next few days. Ibuprofen as needed for the back pain. Albuterol MDI inhaler with spacer, 2 puffs every 4-6 hrs as needed for cough wheezing SOB. 1 sent home from the ED. Prednisone 40mg a day for the next 5 days. Start 04/03/18. RX given to the patient. Tessalon Pearls, 1 tab three times a day as needed for cough. RX given to the patient. Return to the ED if new or worsening symptoms Follow up with primary care provider in the next 4-6 days if not improving sooner if worse.
[2018-04-02] MEDS ORDERED: Budesonide 0.5 MG/2 ML Neb Susp ONE (21:25)
[2018-04-02 21:40] LABS: ANION GAP 13.9; CHLORIDE,CL 103 mmol/L (101-111); SODIUM,NA 137 mmol/L (135-145)
[2018-04-02] MEDS ORDERED: Albuterol 6.7 GM Inhaler INH ONE (22:00)
[2018-04-02 22:07] VITALS: BP 147/64
[2018-04-02] MEDS ORDERED: Benzonatate 100 MG Cap ONE (22:16)
== END 2018-04-02 22:28 | disposition home or self-care (01) ==
LOC: DL.ED 20:41
DX: J40 Bronchitis, not specified as acute or chronic (principal); M54.6 Pain in thoracic spine; I10 Essential (primary) hypertension; I25.10 Atherosclerotic heart disease of native coronary artery without angina pectoris; F17.210 Nicotine dependence, cigarettes, uncomplicated; Z79.899 Other long term (current) drug therapy; Z79.82 Long term (current) use of aspirin; Z88.8 Allergy status to other drugs, medicaments and biological substances
CPT/HCPCS: 36415; 71046; 80053; 85025; 86140; 94640; 96372; 99284; A9270; J1885; J7620-GY

== ENCOUNTER 2018-04-08 00:42 | Emergency (ER) | payer MEDICARE, OTHER ==
[2018-04-08 01:00] VITALS: BP 118/61
[2018-04-08 02:17] LABS: ANION GAP 13.5; CHLORIDE,CL 101 mmol/L (101-111); SODIUM,NA 135 mmol/L (135-145)
[2018-04-08] MEDS ORDERED: Amoxicillin/Clavulanate K 875-125 MG Tab PO ONE (02:22)
[2018-04-08] MEDS ORDERED: Benzonatate 100 MG Cap PO ONE (02:22)
--- NOTE | 2018-04-08 02:31 | EDM.PDOC ---
ED HPI GENERAL MEDICAL PROBLEM - General Chief Complaint: Respiratory Problem Stated Complaint: BACK AND INSIDES HURT FROM COUGHING Time Seen by Provider: 04/08/18 01:00 Source of Information: Reports: Patient History Limitations: Reports: No Limitations - History of Present Illness INITIAL COMMENTS - FREE TEXT/NARRATIVE: ED with compalint of continued cough for 3 weeks, unknown if fever, has not followed up in clinic as instructed on previous er visits. Is out of cough medication. Taking tylenol and ibuprofen for discomfort, pain mid lower chest and back with coughing. Cough productive at times of white sputum. No change in appetite. Mid-Sternal Chest Pain Score (Numeric/FACES): 5 - Related Data Allergies Allergy/AdvReac Type Severity Reaction Status Date / Time atenolol Allergy Cannot Verified 04/08/18 01:04 Remember Home Meds: Home Meds Aspirin [Ecotrin] 81 mg PO DAILY 10/04/13 [History] Cholecalciferol (Vitamin D3) [Vitamin D3] 2,000 units PO DAILY 10/04/13 [History ] Clopidogrel Bisulfate [Clopidogrel] 75 mg PO DAILY 10/04/13 [History] Lisinopril 20 mg PO DAILY 10/04/13 [History] Metoprolol Succinate 50 mg PO DAILY 10/04/13 [History] Phenytoin Sodium Extended 200 mg PO BID 10/04/13 [History] Primidone 500 mg PO BID 10/04/13 [History] Acetaminophen 2 tab PO Q6H PRN 05/09/16 [History] atorvaSTATin Calcium [Atorvastatin Calcium] 10 mg PO BEDTIME 05/09/16 [History] Ibuprofen [Ibu] 400 mg PO Q4HR PRN 09/18/17 [History] Naproxen [Naprosyn] 500 mg PO Q12HR 09/18/17 [History] Phenytoin [Dilantin] 30 mg PO QPM 09/18/17 [History] Past Medical History HEENT History: Reports: Hard of Hearing, Impaired Vision Cardiovascular History: Reports: Angina, CAD, High Cholesterol, Hypertension Respiratory History: Reports: Bronchitis, Recurrent Gastrointestinal History: Reports: None Genitourinary History: Reports: None 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: 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 Uterine Bleeding Musculoskeletal History: Reports: Arthritis Neurological History: Reports: Seizure Psychiatric History: Reports: None Endocrine/Metabolic History: Reports: None Hematologic History: Reports: None Immunologic History: Reports: None Oncologic (Cancer) History: Reports: Breast Dermatologic History: Reports: None - Infectious Disease History Infectious Disease History: Reports: Chicken Pox, Mumps - Past Surgical History Head Surgeries/Procedures: Reports: None Oncologic Surgical History: Reports: Biopsy of Breast Social & Family History - Family History Family Medical History: Noncontributory Cardiac: Reports: Other (See Below) Other Cardiac Family History: "heart problems" - Tobacco Use Smoking Status *Q: Former Smoker Used Tobacco, but Quit: No Second Hand Smoke Exposure: Yes - Caffeine Use Caffeine Use: Reports: Coffee - Recreational Drug Use Recreational Drug Use: No - Living Situation & Occupation Living situation: Reports: with Family Occupation: Retired ED ROS GENERAL - Review of Systems Review Of Systems: ROS reveals no pertinent complaints other than HPI. ED EXAM, GENERAL - Physical Exam Exam: See Below Exam Limited By: No Limitations General Appearance: No Apparent Distress Eye Exam: Bilateral Eye: EOMI Ears: Normal External Exam, Hearing Grossly Normal Nose: Normal Inspection Throat/Mouth: Normal Inspection Head: Atraumatic, Normocephalic Neck: Normal Inspection, Full Range of Motion. No: Lymphadenopathy (L), Lymphadenopathy (R) Respiratory/Chest: No Respiratory Distress, Decreased Breath Sounds, Other ( infrequent harsh bronchial cough). No: Respiratory Distress, Crackles, Rales, Rhonchi, Wheezing Cardiovascular: Normal Peripheral Pulses, Regular Rate, Rhythm. No: No Edema ( trace), No Murmur, No Rub, JVD GI/Abdominal: Normal Bowel Sounds, Soft, Non-Tender Neurological: Alert, Oriented, Normal Cognition Psychiatric: Normal Affect, Normal Mood Skin Exam: Warm, Dry, Intact, Normal Color, No Rash Course - Vital Signs Last Recorded V/S: Last Vital Signs Temp 100 F 04/08/18 00:45 Pulse 57 L 04/08/18 00:45 Resp 22 H 04/08/18 00:45 BP 118/61 04/08/18 00:45 Pulse Ox 98 04/08/18 00:45 - Orders/Labs/Meds Orders: Active Orders 24 hr Category Date Time Status CXR [Chest 1V Frontal] [CR] Urgent Exams 04/08/18 00:48 Taken Labs: Laboratory Tests 04/08/18 04/08/18 Range/Units 01:51 01:51 WBC 3.7 L (5.0-10.0) 10^3/uL RBC 4.17 L (4.2-5.4) 10^6/uL Hgb 10.3 L (12.0-16.0) g/dL Hct 33.4 L (37.0-47.0) % MCV 80.1 (80-100) fL MCH 24.7 L (27.0-34.0) pg MCHC 30.8 L (33.0-35.0) g/dL Plt Count 330 (150-450) 10^3/uL Neut % (Auto) 71.0 (42.2-75.2) % Lymph % (Auto) 18.5 L (20.5-50.1) % [place] % (Auto) 7.3 (2-8) % Eos % (Auto) 2.7 (1.0-3.0) % Baso % (Auto) 0.5 (0.0-1.0) % Sodium 135 (135-145) mmol/L Potassium 3.5 L (3.6-5.0) mmol/L Chloride 101 (101-111) mmol/L Carbon Dioxide 24.0 (21.0-31.0) mmol/L Anion Gap 13.5 BUN 15 (7-18) mg/dL Creatinine 0.8 (0.6-1.3) mg/dL Est Cr Clr Drug Dosing 59.73 mL/min Estimated GFR (MDRD) > 60 BUN/Creatinine Ratio 18.75 Glucose 99 (74-105) mg/dL Calcium 8.2 L (8.4-10.2) mg/dl Total Bilirubin 0.3 (0.2-1.0) mg/dL AST 15 (10-42) IU/L ALT 13 (10-60) IU/L Alkaline Phosphatase 95 (42-121) IU/L Troponin I < 0.02 (0.00-0.02) ng/ml B-Natriuretic Peptide 135 H (0-100) pg/ml Total Protein 6.1 L (6.7-8.2) g/dl Albumin 3.3 (3.2-5.5) g/dl Globulin 2.8 Albumin/Globulin Ratio 1.18 Meds: Medications Discontinued Medications Generic Name Dose Route Start Last Admin Trade Name Freq PRN Reason Stop Dose Admin Amoxicillin/Clavulanate Potassium 1 tab 04/08/18 02:22 Augmentin 875 Mg/125 Mg PO 04/08/18 02:23 ONETIME ONE Benzonatate 200 mg 04/08/18 02:22 Tessalon Perles PO 04/08/18 02:23 ONETIME ONE - Radiology Interpretation Free Text/Narrative:: Final Radiology Report Call: [phone] assistance Online chat: [email or web address] Name: JACK LEWIS Age: 67Years F Date: 04/08/2018 SSN: -- : 1950 Study: XR CHEST 1 VIEW Requesting Physician: RUSSELL BISWAS Images: 1 Addl Studies: Provided Clinical History: Contrast: Contrast Medium: Contrast Amount: Contrast Method: Page 1 of 2 EXAM: XR Chest, 1 View EXAM DATE/TIME: 04/08/2018 1:02 AM CLINICAL HISTORY: 67 years old, female; Signs and symptoms; Cough TECHNIQUE: XR of the chest, 1 view. COMPARISON: CR Chest 2V 04/02/2018 9:00 PM FINDINGS: Lungs: There is linear scarring in the left lingula and left lower lobe, unchanged. Development of patchy left lower lobe airspace disease suspicious for pneumonia. Pleural space: No pleural effusion. No pneumothorax. Heart/Mediastinum: Stable moderate enlargement of the cardiac silhouette. Mediastinal contours are unremarkable. Bones/joints: Poststernotomy changes in the chest. Findings are stable. IMPRESSION: 1. Development of patchy left lower lobe airspace disease suspicious for pneumonia. Recommend followup chest imaging in 12 weeks to insure resolution of these findings. 2. Incidental/nonacute findings are listed in the report. Thank you for allowing us to participate in the care of your patient. Departure - Departure Time of Disposition: 02:31 Disposition: Home, Self-Care 01 Condition: Good Clinical Impression: LLL pneumonia Qualifiers: Pneumonia type: due to unspecified organism Qualified Code(s): J18.1 - Lobar pneumonia, unspecified organism - Discharge Information *PRESCRIPTION DRUG MONITORING PROGRAM REVIEWED*: Not Applicable *COPY OF PRESCRIPTION DRUG MONITORING REPORT IN PATIENT LENORE: Not Applicable Instructions: Community-Acquired Pneumonia, Adult, [id number] Additional Instructions: humidification robitussin cough syrup to aid in cough and loosening secretions tylenol every 4 hours for discomfort augmentin 875mg one twice daily for 10 days tesselon perles 200mg one every 8 hours as needed for cough Clinic follow up early next week urgent follow up if symptoms worsen - My Orders Last 24 Hours: My Active Orders 04/08/18 00:48 CXR [Chest 1V Frontal] [CR] Urgent - Assessment/Plan Last 24 Hours: My Active Orders 04/08/18 00:48 CXR [Chest 1V Frontal] [CR] Urgent
== END 2018-04-08 02:40 | disposition home or self-care (01) ==
LOC: DL.ED 00:42
DX: J18.1 Lobar pneumonia, unspecified organism (principal); I10 Essential (primary) hypertension; E78.00 Pure hypercholesterolemia, unspecified; Z79.899 Other long term (current) drug therapy; Z79.82 Long term (current) use of aspirin; Z88.8 Allergy status to other drugs, medicaments and biological substances
CPT/HCPCS: 36415; 71045; 80053; 83880; 84484; 85025; 99283; A9270

== ENCOUNTER 2019-11-17 00:08 | Emergency (ER) | payer MEDICARE, OTHER ==
--- NOTE | 2019-11-17 01:06 | EDM.PDOC ---
ED HPI GENERAL MEDICAL PROBLEM - General Chief Complaint: Abdominal Pain Stated Complaint: STOMACH ACHE SINCE YESTERDAY Time Seen by Provider: 11/17/19 00:40 Source of Information: Reports: Patient, Family History Limitations: Reports: No Limitations - History of Present Illness INITIAL COMMENTS - FREE TEXT/NARRATIVE: ED with c/o abdominal pain, started yesterday, more on side now tonight in front some distension, Unsure when last BM. No known fever or chills. No urinary c/o No nausea or vomiting. Abdominal Pain Score (Numeric/FACES): 5 - Related Data Allergies Allergy/AdvReac Type Severity Reaction Status Date / Time atenolol Allergy Cannot Verified 11/17/19 00:39 Remember Home Meds: Home Meds Aspirin [Ecotrin EC] 81 mg PO DAILY 10/04/13 [History] Cholecalciferol (Vitamin D3) [Vitamin D3] 1,000 units PO DAILY 10/04/13 [History] Clopidogrel Bisulfate [Clopidogrel] 75 mg PO DAILY 10/04/13 [History] Lisinopril 20 mg PO DAILY 10/04/13 [History] Metoprolol Succinate 50 mg PO DAILY 10/04/13 [History] Phenytoin Sodium Extended 200 mg PO BID 10/04/13 [History] Primidone 500 mg PO BID 10/04/13 [History] atorvaSTATin Calcium [Atorvastatin Calcium] 10 mg PO BEDTIME 05/09/16 [History] Ibuprofen [Ibu] 400 mg PO Q4HR PRN 09/18/17 [History] Naproxen [Naprosyn] 500 mg PO Q12HR 09/18/17 [History] Phenytoin [Dilantin] 30 mg PO BEDTIME 09/18/17 [History] Past Medical History HEENT History: Reports: Hard of Hearing, Impaired Vision Cardiovascular History: Reports: Angina, Bypass, CAD, High Cholesterol, Hypertension Respiratory History: Reports: Bronchitis, Recurrent Gastrointestinal History: Reports: None Genitourinary History: Reports: None 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: 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 Uterine Bleeding, Musculoskeletal History: Reports: Arthritis Neurological History: Reports: Seizure Psychiatric History: Reports: None Endocrine/Metabolic History: Reports: None Hematologic History: Reports: None, Anemia, Blood Transfusion(s) Immunologic History: Reports: None Oncologic (Cancer) History: Reports: Breast Dermatologic History: Reports: None - Infectious Disease History Infectious Disease History: Reports: Chicken Pox, Mumps - Past Surgical History Head Surgeries/Procedures: Reports: None HEENT Surgical History: Reports: None Other Cardiovascular Surgeries/Procedures: bypass unsure of stents Respiratory Surgical History: Reports: None Neurological Surgical History: Reports: None Oncologic Surgical History: Reports: Biopsy of Breast Social & Family History - Family History Family Medical History: Noncontributory Cardiac: Reports: Other (See Below) Other Cardiac Family History: "heart problems" - Tobacco Use Smoking Status *Q: Current Every Day Smoker Years of Tobacco use: 50 Packs/Tins Daily: 0.5 - Caffeine Use Caffeine Use: Reports: Coffee - Recreational Drug Use Recreational Drug Use: No - Living Situation & Occupation Living situation: Reports: with Family Occupation: Retired ED ROS GENERAL - Review of Systems Review Of Systems: Comprehensive ROS is negative, except as noted in HPI. ED EXAM, GI/ABD - Physical Exam Exam: See Below Exam Limited By: No Limitations General Appearance: Alert, No Apparent Distress Ears: Normal External Exam Nose: Normal Inspection Throat/Mouth: Normal Inspection Head: Atraumatic Neck: Normal Inspection Respiratory/Chest: No Respiratory Distress, Lungs Clear, Normal Breath Sounds Cardiovascular: Normal Peripheral Pulses, Regular Rate, Rhythm GI/Abdominal Exam: Soft, Distended (mild upper), Tender (mild generalized), Abnormal Bowel Sounds (hypoactive). No: Guarding, Rigid Extremities: Pedal Edema (left lower) Neurological: Alert, Slow to Respond Psychiatric: Flat Affect Skin Exam: Warm, Dry, Intact, Normal Color Course - Vital Signs Last Recorded V/S: Last Vital Signs Temp 97.5 F 11/17/19 03:34 Pulse 62 11/17/19 03:34 Resp 18 11/17/19 03:34 BP 184/78 H 11/17/19 03:34 Pulse Ox 97 11/17/19 03:34 - Orders/Labs/Meds Orders: Active Orders 24 hr Category Date Time Status CULTURE URINE [RM] Urgent Lab 11/17/19 01:14 Received Labs: Laboratory Tests 11/17/19 11/17/19 11/17/19 Range/Units 00:57 00:57 01:14 WBC 4.6 L (5.0-10.0) 10^3/uL RBC 4.03 L (4.2-5.4) 10^6/uL Hgb 13.0 D (12.0-16.0) g/dL Hct 40.1 (37.0-47.0) % MCV 99.5 D (80-100) fL MCH 32.3 (27.0-34.0) pg MCHC 32.4 L (33.0-35.0) g/dL Plt Count 309 (150-450) 10^3/uL Neut % (Auto) 67.8 (42.2-75.2) % Lymph % (Auto) 21.8 (20.5-50.1) % [place] % (Auto) 5.2 (2-8) % Eos % (Auto) 4.8 H (1.0-3.0) % Baso % (Auto) 0.4 (0.0-1.0) % Sodium 141 (136-145) mmol/L Potassium 4.0 (3.5-5.1) mmol/L Chloride 105 (98-107) mmol/L Carbon Dioxide 30 (21-32) mmol/L Anion Gap 10.0 (7-13) mEq/L BUN 15 (7-18) mg/dL Creatinine 0.81 (0.55-1.02) mg/dL Est Cr Clr Drug Dosing 57.40 mL/min Estimated GFR (MDRD) > 60 BUN/Creatinine Ratio 18.5 (No establ ref range) Glucose 104 H (74-99) mg/dL Calcium 8.7 (8.5-10.1) mg/dL Total Bilirubin 0.1 L (0.2-1.0) mg/dL AST 12 L (15-37) U/L ALT 18 (14-59) U/L Alkaline Phosphatase 81 (46-116) U/L Total Protein 6.2 L (6.4-8.2) g/dL Albumin 3.2 L (3.4-5.0) g/dL Globulin 3.0 Albumin/Globulin Ratio 1.07 Amylase 62 (25-115) U/L Lipase 195 (73-393) U/L Urine Color Yellow (YELLOW) Urine Appearance Cloudy (CLEAR) Urine pH 6.0 (5.0-9.0) Ur Specific [place] >= 1.030 (1.005-1.030) Urine Protein Trace H (NEGATIVE) Urine Glucose (UA) Negative (NEGATIVE) Urine Ketones Negative (NEGATIVE) Urine Occult Blood Negative (NEGATIVE) Urine Nitrite Positive H (NEGATIVE) Urine Bilirubin Negative (NEGATIVE) Urine Urobilinogen 0.2 (0.2-1.0) mg/dL Ur Leukocyte Esterase Negative (NEGATIVE) Urine RBC Not seen /HPF Urine WBC 0-5 (0-5/HPF) /HPF Ur Epithelial Cells Few (NOT SEEN) /HPF Amorphous Sediment Many H (NOT SEEN) /HPF Urine Bacteria Few (0-FEW/HPF) /HPF Urine Mucus Rare (NOT SEEN) /LPF SARS CoV-2 RNA Rapid APURVA (NEGATIVE) 11/17/19 Range/Units 03:47 WBC (5.0-10.0) 10^3/uL RBC (4.2-5.4) 10^6/uL Hgb (12.0-16.0) g/dL Hct (37.0-47.0) % MCV (80-100) fL MCH (27.0-34.0) pg MCHC (33.0-35.0) g/dL Plt Count (150-450) 10^3/uL Neut % (Auto) (42.2-75.2) % Lymph % (Auto) (20.5-50.1) % [place] % (Auto) (2-8) % Eos % (Auto) (1.0-3.0) % Baso % (Auto) (0.0-1.0) % Sodium (136-145) mmol/L Potassium (3.5-5.1) mmol/L Chloride (98-107) mmol/L Carbon Dioxide (21-32) mmol/L Anion Gap (7-13) mEq/L BUN (7-18) mg/dL Creatinine (0.55-1.02) mg/dL Est Cr Clr Drug Dosing mL/min Estimated GFR (MDRD) BUN/Creatinine Ratio (No establ ref range) Glucose (74-99) mg/dL Calcium (8.5-10.1) mg/dL Total Bilirubin (0.2-1.0) mg/dL AST (15-37) U/L ALT (14-59) U/L Alkaline Phosphatase (46-116) U/L Total Protein (6.4-8.2) g/dL Albumin (3.4-5.0) g/dL Globulin Albumin/Globulin Ratio Amylase (25-115) U/L Lipase (73-393) U/L Urine Color (YELLOW) Urine Appearance (CLEAR) Urine pH (5.0-9.0) Ur Specific [place] (1.005-1.030) Urine Protein (NEGATIVE) Urine Glucose (UA) (NEGATIVE) Urine Ketones (NEGATIVE) Urine Occult Blood (NEGATIVE) Urine Nitrite (NEGATIVE) Urine Bilirubin (NEGATIVE) Urine Urobilinogen (0.2-1.0) mg/dL Ur Leukocyte Esterase (NEGATIVE) Urine RBC /HPF Urine WBC (0-5/HPF) /HPF Ur Epithelial Cells (NOT SEEN) /HPF Amorphous Sediment (NOT SEEN) /HPF Urine Bacteria (0-FEW/HPF) /HPF Urine Mucus (NOT SEEN) /LPF SARS CoV-2 RNA Rapid APURVA Negative (NEGATIVE) Meds: Medications Discontinued Medications Generic Name Dose Route Start Last Admin Trade Name Freq PRN Reason Stop Dose Admin Sodium Chloride 1,000 mls @ 500 mls/hr 11/17/19 01:41 11/17/19 01:53 Normal Saline IV 11/17/19 03:40 500 mls/hr .BOLUS ONE Administration Iopamidol 100 ml 11/17/19 01:41 11/17/19 01:58 Isovue-300 (61%) IVPUSH 11/17/19 01:42 100 ml ONETIME ONE Administration - Re-Assessments/Exams Free Text/Narrative Re-Assessment/Exam: 11/17/19 03:[address] [facility] accepting of patient. Tympanic BS Left, increased distension. Continues to deny nausea rates pain 4/10 improved from earlier. Tx via VMF due to concern for possible bowel infarct. No known COVID exposure, Rapid test is pending 11/17/19 05:51 Departure - Departure Time of Disposition: 04:30 Disposition: DC/Tfer to Acute Hospital 02 Condition: Undetermined Clinical Impression: SBO (small bowel obstruction), Generalized convulsive epilepsy Abdominal pain Qualifiers: Abdominal location: left lower quadrant Qualified Code(s): R10.32 - Left lower quadrant pain - Discharge Information *PRESCRIPTION DRUG MONITORING PROGRAM REVIEWED*: No *COPY OF PRESCRIPTION DRUG MONITORING REPORT IN PATIENT LENORE: No Referrals: PCP,None [Primary Care Provider] - Forms: ED Department Discharge Sepsis Event Note (ED) - Evaluation Sepsis Screening Result: No Definite Risk - Focused Exam Vital Signs: Vital Signs Temp Pulse Resp BP Pulse Ox 10/10/20 03:34 97.5 F 62 18 184/78 H 97 11/17/19 00:34 97.5 F 64 16 163/65 H 97 - My Orders Last 24 Hours: My Active Orders 11/17/19 01:14 CULTURE URINE [RM] Urgent - Assessment/Plan Last 24 Hours: My Active Orders 11/17/19 01:14 CULTURE URINE [RM] Urgent
[2019-11-17 01:26] LABS: CHLORIDE,CL 105 mmol/L (98-107); SODIUM,NA 141 mmol/L (136-145)
[2019-11-17] MEDS ORDERED: Iopamidol 612 MG/ML 100 ML Bottle IVPUSH ONE (01:41)
[2019-11-17] MEDS ORDERED: Sodium Chloride 0.9% 1,000 ML IV ONE (01:41)
--- NOTE | 2019-11-17 03:11 | CT ---
PROCEDURE INFORMATION: Exam: CT Abdomen And Pelvis With Contrast Exam date and time: 11/17/2019 2:12 AM Age: 69 years old Clinical indication: Other: Wbc 4.6; Additional info: Abdominal pain left TECHNIQUE: Imaging protocol: Computed tomography of the abdomen and pelvis with intravenous contrast. Radiation optimization: All CT scans at this facility use at least one of these dose optimization techniques: automated exposure control; mA and/or kV adjustment per patient size (includes targeted exams where dose is matched to clinical indication); or iterative reconstruction. Contrast material: [id number]; Contrast volume: 75 ml; Contrast route: INTRAVENOUS (IV); COMPARISON: No relevant prior studies available. FINDINGS: Lungs: For scattered subsegmental atelectasis in the lungs. Heart: Mild cardiomegaly with dilated left atrium. Dilated main pulmonary artery measuring 3.2 cm in diameter. Mediastinal space: Tiny hiatal hernia. Liver: Calcified granuloma in the liver. Gallbladder and bile ducts: No calcified stones. No ductal dilation. Pancreas: Calcification in the pancreatic head, possibly in the main duct measuring 5 mm. 1.6 cm cystic lesion of the pancreatic head. Spleen: Calcified granuloma in the spleen. Adrenals: No mass. Kidneys and ureters: Bilateral renal cysts. Stomach and bowel: Dilated loops of small bowel leading to a transition point in the left anterior pelvis compatible with a small bowel obstruction. Intraperitoneal space: No free air. No significant fluid collection. Vasculature: Moderate atherosclerosis of the aorta. Lymph nodes: Likely calcified lymph node in the right lower quadrant. Urinary bladder: Unremarkable as visualized. Reproductive: Unremarkable as visualized. Bones/joints: Moderate grade anterior wedge fracture of T6. Superior endplate fracture of T5. Median sternotomy wires are aligned. IMPRESSION: Dilated loops of small bowel leading to a transition point in the left anterior pelvis compatible with a small bowel obstruction.
[2019-11-17 03:34] VITALS: BP 184/78; PULSE 62
== END 2019-11-17 04:30 ==
LOC: DL.ED 00:08
DX: K56.609 Unspecified intestinal obstruction, unspecified as to partial versus complete obstruction (principal); G40.409 Other generalized epilepsy and epileptic syndromes, not intractable, without status epilepticus; R60.0 Localized edema; I10 Essential (primary) hypertension; E78.00 Pure hypercholesterolemia, unspecified; I25.10 Atherosclerotic heart disease of native coronary artery without angina pectoris; M19.90 Unspecified osteoarthritis, unspecified site; F17.210 Nicotine dependence, cigarettes, uncomplicated; Z88.8 Allergy status to other drugs, medicaments and biological substances; Z79.82 Long term (current) use of aspirin; Z79.899 Other long term (current) drug therapy; Z79.02 Long term (current) use of antithrombotics/antiplatelets; Z20.828 Contact with and (suspected) exposure to other viral communicable diseases
CPT/HCPCS: 36415; 43752; 74177; 80053; 81001; 82150; 83690; 85025; 87086; 87088; 87186; 96360; 96361; 99285; J7030; Q9967; U0002; 99284

== ENCOUNTER 2019-12-08 22:39 | Emergency (ER) | payer MEDICARE, OTHER ==
--- NOTE | 2019-12-08 23:17 | EDM.PDOC ---
ED HPI GENERAL MEDICAL PROBLEM - General Chief Complaint: Respiratory Problem Stated Complaint: SHORTNESS OF BREATH Time Seen by Provider: 12/08/19 23:15 Source of Information: Reports: Patient History Limitations: Reports: No Limitations - History of Present Illness INITIAL COMMENTS - FREE TEXT/NARRATIVE: poor historian. sob few days, just got out from [facility] for bowel obstruction. Abdominal Pain Score (Numeric/FACES): 2 - Related Data Allergies Allergy/AdvReac Type Severity Reaction Status Date / Time atenolol Allergy Cannot Verified 12/08/19 23:19 Remember Home Meds: Home Meds Aspirin [Ecotrin EC] 81 mg PO DAILY 10/04/13 [History] Cholecalciferol (Vitamin D3) [Vitamin D3] 1,000 units PO DAILY 10/04/13 [History] Clopidogrel Bisulfate [Clopidogrel] 75 mg PO DAILY 10/04/13 [History] Lisinopril 20 mg PO DAILY 10/04/13 [History] Metoprolol Succinate 50 mg PO DAILY 10/04/13 [History] Phenytoin Sodium Extended 200 mg PO BID 10/04/13 [History] Primidone 500 mg PO BID 10/04/13 [History] atorvaSTATin Calcium [Atorvastatin Calcium] 10 mg PO BEDTIME 05/09/16 [History] Ibuprofen [Ibu] 400 mg PO Q4HR PRN 09/18/17 [History] Naproxen [Naprosyn] 500 mg PO Q12HR 09/18/17 [History] Phenytoin [Dilantin] 30 mg PO BEDTIME 09/18/17 [History] Past Medical History HEENT History: Reports: Hard of Hearing, Impaired Vision Cardiovascular History: Reports: Angina, Bypass, CAD, High Cholesterol, Hypertension Respiratory History: Reports: Bronchitis, Recurrent Gastrointestinal History: Reports: None Genitourinary History: Reports: None 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: 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 Uterine Bleeding, Musculoskeletal History: Reports: Arthritis Neurological History: Reports: Seizure Psychiatric History: Reports: None Endocrine/Metabolic History: Reports: None Hematologic History: Reports: None, Anemia, Blood Transfusion(s) Immunologic History: Reports: None Oncologic (Cancer) History: Reports: Breast Dermatologic History: Reports: None - Infectious Disease History Infectious Disease History: Reports: Chicken Pox, Mumps - Past Surgical History Head Surgeries/Procedures: Reports: None HEENT Surgical History: Reports: None Other Cardiovascular Surgeries/Procedures: bypass unsure of stents Respiratory Surgical History: Reports: None Neurological Surgical History: Reports: None Oncologic Surgical History: Reports: Biopsy of Breast Social & Family History - Family History Family Medical History: Noncontributory Cardiac: Reports: Other (See Below) Other Cardiac Family History: "heart problems" - Caffeine Use Caffeine Use: Reports: Coffee - Living Situation & Occupation Living situation: Reports: with Family Occupation: Retired ED ROS GENERAL - Review of Systems Review Of Systems: Comprehensive ROS is negative, except as noted in HPI. ED EXAM, GENERAL - Physical Exam Exam: See Below Exam Limited By: No Limitations General Appearance: Alert, WD/WN, Mild Distress, Other (discomfort) Ears: Hearing Grossly Normal Throat/Mouth: Normal Voice, No Airway Compromise Head: Atraumatic Neck: Non-Tender, Full Range of Motion Respiratory/Chest: No Respiratory Distress, No Accessory Muscle Use, Rhonchi. No: Decreased Breath Sounds Cardiovascular: Regular Rate, Rhythm GI/Abdominal: Tender, Other (gives recent h/o bowel obstruction). No: Distended, Guarding, Rebound (Female) Exam: Deferred Rectal (Female) Exam: Deferred Neurological: Alert, Oriented, Normal Cognition, No Motor/Sensory Deficits Psychiatric: Flat Affect Skin Exam: Warm, Dry, Normal Color Lymphatic: No Adenopathy Course - Vital Signs Last Recorded V/S: Last Vital Signs Temp 36.9 C 12/08/19 23:12 Pulse 86 12/08/19 23:53 Resp 15 12/08/19 23:53 BP 119/60 12/08/19 23:53 Pulse Ox 94 L 12/08/19 23:53 - Orders/Labs/Meds Labs: Laboratory Tests 12/08/19 12/08/19 12/08/19 Range/Units 23:25 23:25 23:25 WBC 5.5 (5.0-10.0) 10^3/uL RBC 3.86 L (4.2-5.4) 10^6/uL Hgb 11.9 L (12.0-16.0) g/dL Hct 37.5 (37.0-47.0) % MCV 97.2 (80-100) fL MCH 30.8 (27.0-34.0) pg MCHC 31.7 L (33.0-35.0) g/dL Plt Count 554 H D (150-450) 10^3/uL Neut % (Auto) 71.7 (42.2-75.2) % Lymph % (Auto) 18.1 L (20.5-50.1) % [place] % (Auto) 7.3 (2-8) % Eos % (Auto) 2.5 (1.0-3.0) % Baso % (Auto) 0.4 (0.0-1.0) % D-Dimer, Quantitative 634 H (0-400) ng/mL Sodium 141 (136-145) mmol/L Potassium 4.1 (3.5-5.1) mmol/L Chloride 102 (98-107) mmol/L Carbon Dioxide 30 (21-32) mmol/L Anion Gap 13.1 H (7-13) mEq/L BUN 10 (7-18) mg/dL Creatinine 0.66 (0.55-1.02) mg/dL Est Cr Clr Drug Dosing 70.45 mL/min Estimated GFR (MDRD) > 60 BUN/Creatinine Ratio 15.2 (No establ ref range) Glucose 94 (74-99) mg/dL Lactic Acid (0.4-2.0) mmol/L Calcium 8.8 (8.5-10.1) mg/dL Total Bilirubin 0.3 (0.2-1.0) mg/dL AST 31 (15-37) U/L ALT 16 (14-59) U/L Alkaline Phosphatase 96 (46-116) U/L Troponin I 0.034 (0.000-0.056) ng/mL Total Protein 6.0 L (6.4-8.2) g/dL Albumin 2.8 L (3.4-5.0) g/dL Globulin 3.2 Albumin/Globulin Ratio 0.88 Ethyl Alcohol < 3 (0) mg/dL 12/08/19 Range/Units 23:25 WBC (5.0-10.0) 10^3/uL RBC (4.2-5.4) 10^6/uL Hgb (12.0-16.0) g/dL Hct (37.0-47.0) % MCV (80-100) fL MCH (27.0-34.0) pg MCHC (33.0-35.0) g/dL Plt Count (150-450) 10^3/uL Neut % (Auto) (42.2-75.2) % Lymph % (Auto) (20.5-50.1) % [place] % (Auto) (2-8) % Eos % (Auto) (1.0-3.0) % Baso % (Auto) (0.0-1.0) % D-Dimer, Quantitative (0-400) ng/mL Sodium (136-145) mmol/L Potassium (3.5-5.1) mmol/L Chloride (98-107) mmol/L Carbon Dioxide (21-32) mmol/L Anion Gap (7-13) mEq/L BUN (7-18) mg/dL Creatinine (0.55-1.02) mg/dL Est Cr Clr Drug Dosing mL/min Estimated GFR (MDRD) BUN/Creatinine Ratio (No establ ref range) Glucose (74-99) mg/dL Lactic Acid 0.8 (0.4-2.0) mmol/L Calcium (8.5-10.1) mg/dL Total Bilirubin (0.2-1.0) mg/dL AST (15-37) U/L ALT (14-59) U/L Alkaline Phosphatase (46-116) U/L Troponin I (0.000-0.056) ng/mL Total Protein (6.4-8.2) g/dL Albumin (3.4-5.0) g/dL Globulin Albumin/Globulin Ratio Ethyl Alcohol (0) mg/dL - Re-Assessments/Exams Free Text/Narrative Re-Assessment/Exam: 12/09/19 00:32 results discussed with pt who is sleeping but arousable and has no c/o Departure - Departure Time of Disposition: 00:33 Disposition: Home, Self-Care 01 Condition: Good Clinical Impression: Bronchitis - Discharge Information Instructions: Acute Bronchitis, Adult, [id number] Forms: ED Department Discharge Additional Instructions: 1) rest 2) don't sleep flat at night 3) drink liquids 4) follow up at clinic rx given; z-key Sepsis Event Note (ED) - Focused Exam Vital Signs: Vital Signs Temp Pulse Resp BP Pulse Ox 12/08/19 23:53 86 15 119/60 94 L 12/08/19 23:12 36.9 C 81 18 131/82 98
--- NOTE | 2019-12-08 23:24 | CR ---
PROCEDURE INFORMATION: Exam: XR Chest, 1 View Exam date and time: 12/08/2019 11:15 PM Age: 69 years old Clinical indication: Shortness of breath; Additional info: SOB TECHNIQUE: Imaging protocol: XR of the chest Views: 1 view. COMPARISON: CR Chest 1V Frontal 04/08/2018 1:02 AM FINDINGS: Lungs: Chronic appearing interstitial changes are present. No pneumonia or pulmonary edema identified. Stable appearance when compared to the previous examination. Pleural space: Unremarkable. No pleural effusion. No pneumothorax. Heart/Mediastinum: The heart is mildly enlarged. Postoperative change from prior cardiac surgery present. Bones/joints: Unremarkable. IMPRESSION: Chronic appearing interstitial change and postoperative change. No acute cardiopulmonary disease present.
[2019-12-08 23:57] VITALS: BP 119/60; PULSE 86
[2019-12-09 00:05] LABS: ANION GAP 13.1 mEq/L (7-13); CHLORIDE,CL 102 mmol/L (98-107); SODIUM,NA 141 mmol/L (136-145)
[2019-12-09] MEDS ORDERED: Azithromycin 250 MG Tab PO ONE (00:36)
== END 2019-12-09 00:46 | disposition home or self-care (01) ==
LOC: DL.ED 22:39
DX: J40 Bronchitis, not specified as acute or chronic (principal); I25.10 Atherosclerotic heart disease of native coronary artery without angina pectoris; I10 Essential (primary) hypertension; E78.00 Pure hypercholesterolemia, unspecified; Z88.8 Allergy status to other drugs, medicaments and biological substances; Z79.82 Long term (current) use of aspirin; Z79.899 Other long term (current) drug therapy; Z95.1 Presence of aortocoronary bypass graft
CPT/HCPCS: 36415; 71045; 80053; 80307; 83605; 84484; 85025; 85379; 99285; A9270

== ENCOUNTER 2019-12-12 18:15 | Inpatient (IN) | payer MEDICARE, OTHER ==
--- NOTE | 2019-12-12 19:09 | EDM.PDOC ---
<Jennifer Owusu - Last Filed: 12/12/19 19:09> ED HPI GENERAL MEDICAL PROBLEM - General Chief Complaint: General Stated Complaint: REALLY WEAK STOMACH PAIN Time Seen by Provider: 12/12/19 19:05 Source of Information: Reports: Patient, RN, RN Notes Reviewed History Limitations: Reports: No Limitations - History of Present Illness INITIAL COMMENTS - FREE TEXT/NARRATIVE: Patient presents to the ED via personal vehicle with complaints of shortness of breath. Per patient report she was recently discharged from the hospital following a bowel resection at [facility] in [place]. She states she has been short of breath since getting home; she is unable to state when she arrived home from the hospital. She denies chest pain or palpitations. Abdomen Pain Score (Numeric/FACES): 4 - Related Data Allergies Allergy/AdvReac Type Severity Reaction Status Date / Time atenolol Allergy Cannot Verified 12/12/19 18:36 Remember Home Meds: Home Meds Aspirin [Ecotrin EC] 81 mg PO DAILY 10/04/13 [History] Cholecalciferol (Vitamin D3) [Vitamin D3] 1,000 units PO DAILY 10/04/13 [History] Clopidogrel Bisulfate [Clopidogrel] 75 mg PO DAILY 10/04/13 [History] Lisinopril 20 mg PO DAILY 10/04/13 [History] Metoprolol Succinate 50 mg PO DAILY 10/04/13 [History] Phenytoin Sodium Extended 200 mg PO BID 10/04/13 [History] Primidone 500 mg PO BID 10/04/13 [History] atorvaSTATin Calcium [Atorvastatin Calcium] 10 mg PO BEDTIME 05/09/16 [History] Ibuprofen [Ibu] 400 mg PO Q4HR PRN 09/18/17 [History] Naproxen [Naprosyn] 500 mg PO Q12HR 09/18/17 [History] Phenytoin [Dilantin] 30 mg PO BEDTIME 09/18/17 [History] Past Medical History HEENT History: Reports: Hard of Hearing, Impaired Vision Other HEENT History: wears glasses Cardiovascular History: Reports: Angina, Bypass, CAD, High Cholesterol, Hypertension Respiratory History: Reports: Bronchitis, Recurrent Gastrointestinal History: Reports: None Other Gastrointestinal History: Recent surg. to abd. 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: 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 Uterine Bleeding, Musculoskeletal History: Reports: Arthritis Neurological History: Reports: Seizure Psychiatric History: Reports: None Endocrine/Metabolic History: Reports: None Hematologic History: Reports: None, Anemia, Blood Transfusion(s) Immunologic History: Reports: None Oncologic (Cancer) History: Reports: Breast Dermatologic History: Reports: None - Infectious Disease History Infectious Disease History: Reports: Chicken Pox, Mumps - Past Surgical History Head Surgeries/Procedures: Reports: None HEENT Surgical History: Reports: None Other Cardiovascular Surgeries/Procedures: bypass unsure of stents Respiratory Surgical History: Reports: None Neurological Surgical History: Reports: None Oncologic Surgical History: Reports: Biopsy of Breast Social & Family History - Family History Family Medical History: Noncontributory Cardiac: Reports: Other (See Below) Other Cardiac Family History: "heart problems" - Tobacco Use Tobacco Use Status *Q: Former Tobacco User Years of Tobacco use: 40 Packs/Tins Daily: 1 Used Tobacco, but Quit: Yes Month/Year Tobacco Last Used: february Second Hand Smoke Exposure: No - Caffeine Use Caffeine Use: Reports: Coffee, Soda, Tea - Recreational Drug Use Recreational Drug Use: No - Living Situation & Occupation Living situation: Reports: with Family Occupation: Retired Departure - Departure Disposition: Refer to Observation Clinical Impression: Weakness - Discharge Information Care Plan Goals: Discussed the patient's history, examination, lab, x-ray and CT results with Dr. Yeboah. Dr. Yeboah accepted the patient for continued evaluation and management as an observation patient at [facility] in [place]. Sepsis Event Note (ED) - Evaluation Sepsis Screening Result: No Definite Risk <Alen Lizama - Last Filed: 12/12/19 23:54> ED HPI GENERAL MEDICAL PROBLEM - History of Present Illness INITIAL COMMENTS - FREE TEXT/NARRATIVE: Patient care was turned over due to shift change. The patient reports she has continued to have shortness of breath since she was discharged from [facility] in [place]. The patient also reports she has been having difficulties walking. The patient reports she has not been up walking much since she left the hospital. The patient reports her symptoms have not gotten any better since she was seen in the ED on 12/08/19. The patient reports she has been taking the antibiotics. The patient reports she has not followed up with her primary care facility since her discharge from [facility]. The patient is very slow at responding to questions. Onset: Unknown/Unsure Duration: Constant Location: Reports: Chest, Abdomen, Other Quality: Reports: Other Severity: Moderate Improves with: Reports: None Worsens with: Reports: None Context: Reports: Other Associated Symptoms: Reports: No Other Symptoms ED ROS GENERAL - Review of Systems Review Of Systems: Comprehensive ROS is negative, except as noted in HPI. ED EXAM, GENERAL - Physical Exam Exam: See Below Exam Limited By: No Limitations General Appearance: Alert, WD/WN, Mild Distress, Obese, Other (slow responding) Eye Exam: Bilateral Eye: EOMI, Other (constricted) Ears: Normal External Exam, Normal Canal, Hearing Grossly Normal, Normal TMs Nose: Other (The patient has tissue in each nostril) Throat/Mouth: Normal Inspection, Normal Lips, Normal Teeth, Normal Gums, Normal Oropharynx, Normal Voice, No Airway Compromise Head: Atraumatic, Normocephalic Neck: Normal Inspection, Supple, Non-Tender, Full Range of Motion Respiratory/Chest: No Respiratory Distress, Lungs Clear, No Accessory Muscle Use, Chest Non-Tender, Decreased Breath Sounds (due to limited effort) Cardiovascular: Normal Peripheral Pulses, Regular Rate, Rhythm, No Edema, No Gallop, No JVD, No Murmur, No Rub GI/Abdominal: Normal Bowel Sounds, Tender (lower abdominal tenderness) (Female) Exam: Deferred Rectal (Female) Exam: Deferred Back Exam: Normal Inspection, Full Range of Motion, NT Extremities: Normal Inspection, Normal Range of Motion, Non-Tender, Normal Capillary Refill, No Pedal Edema Neurological: Alert, Oriented, CN II-XII Intact, Normal Cognition, Normal Gait, Normal Reflexes, No Motor/Sensory Deficits Psychiatric: Normal Affect, Normal Mood Skin Exam: Warm, Dry, Intact, Normal Color, No Rash Lymphatic: No Adenopathy Course - Vital Signs Last Recorded V/S: Last Vital Signs Temp 36.8 C 12/12/19 18:27 Pulse 63 12/12/19 18:27 Resp 18 12/12/19 18:27 BP 137/71 12/12/19 18:27 Pulse Ox 97 12/12/19 18:27 - Orders/Labs/Meds Orders: Active Orders 24 hr Category Date Time Status Admission Diagnosis [ADT] Urgent ADT 12/12/19 23:51 Ordered Admission Status [Patient Status] [ADT] Routine ADT 12/12/19 23:51 Ordered EKG Documentation Completion [RC] STAT Care 12/12/19 19:02 Active Abdomen Pelvis w Cont [CT] Urgent Exams 12/12/19 21:17 Stop Req Labs: Laboratory Tests 12/12/19 12/12/19 12/12/19 Range/Units 19:16 19:16 19:16 WBC 4.7 L (5.0-10.0) 10^3/uL RBC 3.58 L (4.2-5.4) 10^6/uL Hgb 11.1 L (12.0-16.0) g/dL Hct 35.3 L (37.0-47.0) % MCV 98.6 (80-100) fL MCH 31.0 (27.0-34.0) pg MCHC 31.4 L (33.0-35.0) g/dL Plt Count 382 D (150-450) 10^3/uL Neut % (Auto) 68.5 (42.2-75.2) % Lymph % (Auto) 22.0 (20.5-50.1) % [place] % (Auto) 6.8 (2-8) % Eos % (Auto) 2.5 (1.0-3.0) % Baso % (Auto) 0.2 (0.0-1.0) % Sodium 141 (136-145) mmol/L Potassium 3.4 L (3.5-5.1) mmol/L Chloride 103 (98-107) mmol/L Carbon Dioxide 31 (21-32) mmol/L Anion Gap 10.4 (7-13) mEq/L BUN 14 (7-18) mg/dL Creatinine 0.93 (0.55-1.02) mg/dL Est Cr Clr Drug Dosing 49.99 mL/min Estimated GFR (MDRD) 60 BUN/Creatinine Ratio 15.1 (No establ ref range) Glucose 90 (74-99) mg/dL Lactic Acid 0.9 (0.4-2.0) mmol/L Calcium 8.6 (8.5-10.1) mg/dL Total Bilirubin 0.1 L (0.2-1.0) mg/dL AST 25 (15-37) U/L ALT 15 (14-59) U/L Alkaline Phosphatase 88 (46-116) U/L Troponin I 0.032 (0.000-0.056) ng/mL C-Reactive Protein 1.0 H (0.0-0.9) mg/dL Total Protein 6.3 L (6.4-8.2) g/dL Albumin 2.8 L (3.4-5.0) g/dL Globulin 3.5 Albumin/Globulin Ratio 0.80 Urine Color (YELLOW) Urine Appearance (CLEAR) Urine pH (5.0-9.0) Ur Specific [place] (1.005-1.030) Urine Protein (NEGATIVE) Urine Glucose (UA) (NEGATIVE) Urine Ketones (NEGATIVE) Urine Occult Blood (NEGATIVE) Urine Nitrite (NEGATIVE) Urine Bilirubin (NEGATIVE) Urine Urobilinogen (0.2-1.0) mg/dL Ur Leukocyte Esterase (NEGATIVE) Urine RBC /HPF Urine WBC (0-5/HPF) /HPF Ur Epithelial Cells (NOT SEEN) /HPF Amorphous Sediment (NOT SEEN) /HPF Urine Bacteria (0-FEW/HPF) /HPF Granular Casts (Auto) Urine Mucus (NOT SEEN) /LPF Urine Opiates Screen (NEGATIVE) Ur Oxycodone Screen (NEGATIVE) Urine Methadone Screen (NEGATIVE) Ur Barbiturates Screen (NEGATIVE) U Tricyclic Antidepress (NEGATIVE) Ur Phencyclidine Scrn (NEGATIVE) Ur Amphetamine Screen (NEGATIVE) U Methamphetamines Scrn (NEGATIVE) Urine MDMA Screen (NEGATIVE) U Benzodiazepines Scrn (NEGATIVE) Urine Cocaine Screen (NEGATIVE) U Marijuana (THC) Screen (NEGATIVE) 12/12/19 12/12/19 Range/Units 19:54 19:54 WBC (5.0-10.0) 10^3/uL RBC (4.2-5.4) 10^6/uL Hgb (12.0-16.0) g/dL Hct (37.0-47.0) % MCV (80-100) fL MCH (27.0-34.0) pg MCHC (33.0-35.0) g/dL Plt Count (150-450) 10^3/uL Neut % (Auto) (42.2-75.2) % Lymph % (Auto) (20.5-50.1) % [place] % (Auto) (2-8) % Eos % (Auto) (1.0-3.0) % Baso % (Auto) (0.0-1.0) % Sodium (136-145) mmol/L Potassium (3.5-5.1) mmol/L Chloride (98-107) mmol/L Carbon Dioxide (21-32) mmol/L Anion Gap (7-13) mEq/L BUN (7-18) mg/dL Creatinine (0.55-1.02) mg/dL Est Cr Clr Drug Dosing mL/min Estimated GFR (MDRD) BUN/Creatinine Ratio (No establ ref range) Glucose (74-99) mg/dL Lactic Acid (0.4-2.0) mmol/L Calcium (8.5-10.1) mg/dL Total Bilirubin (0.2-1.0) mg/dL AST (15-37) U/L ALT (14-59) U/L Alkaline Phosphatase (46-116) U/L Troponin I (0.000-0.056) ng/mL C-Reactive Protein (0.0-0.9) mg/dL Total Protein (6.4-8.2) g/dL Albumin (3.4-5.0) g/dL Globulin Albumin/Globulin Ratio Urine Color Dark yellow (YELLOW) Urine Appearance Slightly cloudy (CLEAR) Urine pH 6.0 (5.0-9.0) Ur Specific [place] >= 1.030 (1.005-1.030) Urine Protein 100 H (NEGATIVE) Urine Glucose (UA) Negative (NEGATIVE) Urine Ketones Negative (NEGATIVE) Urine Occult Blood Trace-intact H (NEGATIVE) Urine Nitrite Positive H (NEGATIVE) Urine Bilirubin Negative (NEGATIVE) Urine Urobilinogen 0.2 (0.2-1.0) mg/dL Ur Leukocyte Esterase Negative (NEGATIVE) Urine RBC 0-5 /HPF Urine WBC 5-10 H (0-5/HPF) /HPF Ur Epithelial Cells Moderate H (NOT SEEN) /HPF Amorphous Sediment Few (NOT SEEN) /HPF Urine Bacteria Few (0-FEW/HPF) /HPF Granular Casts (Auto) Few Urine Mucus Rare (NOT SEEN) /LPF Urine Opiates Screen Negative (NEGATIVE) Ur Oxycodone Screen Negative (NEGATIVE) Urine Methadone Screen Negative (NEGATIVE) Ur Barbiturates Screen Positive H (NEGATIVE) U Tricyclic Antidepress Negative (NEGATIVE) Ur Phencyclidine Scrn Negative (NEGATIVE) Ur Amphetamine Screen Negative (NEGATIVE) U Methamphetamines Scrn Negative (NEGATIVE) Urine MDMA Screen Negative (NEGATIVE) U Benzodiazepines Scrn Negative (NEGATIVE) Urine Cocaine Screen Negative (NEGATIVE) U Marijuana (THC) Screen Negative (NEGATIVE) Meds: Medications Discontinued Medications Generic Name Dose Route Start Last Admin Trade Name Vonnie PRN Reason Stop Dose Admin Iopamidol 100 ml 12/12/19 21:17 Isovue-300 (61%) IVPUSH 12/12/19 21:18 ONETIME ONE - Re-Assessments/Exams Free Text/Narrative Re-Assessment/Exam: 12/12/19 22:25 Unable to get an IV started, CT was changed to abdomen/pelvis without contrast. Departure - Departure Time of Disposition: 23:52 Condition: Fair - Discharge Information *PRESCRIPTION DRUG MONITORING PROGRAM REVIEWED*: Not Applicable *COPY OF PRESCRIPTION DRUG MONITORING REPORT IN PATIENT LENORE: Not Applicable Sepsis Event Note (ED) - Focused Exam Vital Signs: Vital Signs Temp Pulse Resp BP Pulse Ox 12/12/19 18:27 36.8 C 63 18 137/71 97 - My Orders Last 24 Hours: My Active Orders 12/12/19 21:17 Abdomen Pelvis w Cont [CT] Urgent 12/12/19 23:51 Admission Diagnosis [ADT] Urgent Admission Status [Patient Status] [ADT] Routine - Assessment/Plan Last 24 Hours: My Active Orders 12/12/19 21:17 Abdomen Pelvis w Cont [CT] Urgent 12/12/19 23:51 Admission Diagnosis [ADT] Urgent Admission Status [Patient Status] [ADT] Routine
[2019-12-12 19:45] LABS: ANION GAP 10.4 mEq/L (7-13)
--- NOTE | 2019-12-12 19:57 | CR ---
PROCEDURE INFORMATION: Exam: XR Chest, 1 View Exam date and time: 12/12/2019 7:14 PM Age: 69 years old Clinical indication: Chest pain; Type not specified TECHNIQUE: Imaging protocol: XR of the chest Views: 1 view. COMPARISON: 1. CR Chest 1V Frontal 12/08/2019 11:[address] - Abdomen Pelvis w Cont 11/17/2019 2:12:21 AM FINDINGS: Lungs: The right lung is clear. There is mild nonspecific patchy linear density at left lung base which could be atelectatic, or inflammatory. Pleural space: No pleural effusion. No pneumothorax. Heart/Mediastinum: Mild cardiomegaly. Abnormal left hilar contour likely related to a dilated pulmonary artery. This is partially included in the field of view of the abdominal CT scan dated 11/17/2019 Bones/joints: Sternotomy wires and mediastinal surgical clips are present, suggesting prior coronary arterial bypass grafting. IMPRESSION: 1. There is mild nonspecific patchy linear density at left lung base which could be atelectatic, or inflammatory. 2. Abnormal left hilar contour likely related to a dilated pulmonary artery. See above. Confirmation with elective thoracic CT suggested.
[2019-12-12] MEDS ORDERED: Iopamidol 612 MG/ML 100 ML Bottle IVPUSH ONE (21:17)
--- NOTE | 2019-12-12 23:40 | CT ---
PROCEDURE INFORMATION: Exam: CT Abdomen And Pelvis Without Contrast Exam date and time: 12/12/2019 10:44 PM Age: 69 years old Clinical indication: Other: Lower abdominal pain; Additional info: Diffuse lower abdominal pain TECHNIQUE: Imaging protocol: Computed tomography of the abdomen and pelvis without contrast. Radiation optimization: All CT scans at this facility use at least one of these dose optimization techniques: automated exposure control; mA and/or kV adjustment per patient size (includes targeted exams where dose is matched to clinical indication); or iterative reconstruction. COMPARISON: CT Abdomen Pelvis w Cont 11/17/2019 2:12 AM FINDINGS: Lungs: There are scattered linear densities in both lungs which are likely fibrotic or atelectatic. There is mild nonspecific patchy linear density at right lung base which could be atelectatic, or inflammatory. There is minor nonspecific patchy linear density at left lung base which could be atelectatic, or inflammatory. Liver: The liver is normal. The liver demonstrates multiple punctate calcified granulomas. Gallbladder and bile ducts: Cholelithiasis suspect.There is no evidence of biliary ductal dilation Pancreas: Pancreatic head calcification is not appear to be in the bile duct. Low-density lesion head of the pancreas measures 16 mm. This is likely cystic. The pancreas is unremarkable otherwise. Spleen: The spleen demonstrates punctate calcifications, consistent with granulomatous disease. Adrenal glands: The adrenal glands are normal. Kidneys and ureters: 3.6 cm smoothly marginated water density left renal lesion likely a benign cyst. Sub cm fat density lesion right kidney compatible with angiomyolipoma. Bilateral extensive renal artery calcification. There may be a 4 mm collecting system calcification on the left. This is not definite.The vasculature demonstrates diffuse moderate atherosclerotic calcification. Stomach and bowel: There are scattered prominent fluid-filled small bowel loops in a nonspecific pattern. May be mild mucosal thickening of proximal small bowel loops. The distal small bowel is more normal in appearance. Some form of nonspecific enteritis may be present. No definite colonic abnormality seen. There is no evidence of colitis/diverticulitis. Appendix: A normal appendix is identified. Intraperitoneal space: No free air. No free fluid. Retroperitoneal space: Calcified phleboliths in the right-sided retroperitoneum measures 16 mm. Vasculature: There is no aortic aneurysm. Lymph nodes: There is no adenopathy. No pelvic adenopathy. Urinary bladder: Bladder is normal. Reproductive: The uterus is normal. No adnexal mass. Bones/joints: No acute bony findings are identified. Soft tissues: No acute soft tissue abnormalities are identified. Postoperative change anterior abdominal wall appears to be new since the prior study . Other findings: The obstructive pattern identified on the earlier study is not seen today . IMPRESSION: 1. Postoperative abdomen. 2. The obstructive pattern seen on the earlier study is not appreciated today. 3. Small bowel abnormalities as described. Some nonspecific enteritis is not ruled out. Differential diagnosis includes infectious processes, inflammatory processes, as well as ischemic etiologies. 4. Cholelithiasis suspect. 5. Left renal lesion likely a benign cyst. Small angiomyolipoma right kidney. No further workup is recommended. 6. Low-density lesion in the head of the pancreas likely is a cyst.Reimaging every 1 year for 5 years, then every 2 years for 4 years is recommended. Follow-up with contrast MRI is recommended Alternatively, EUS/FNA is recommended. (Reference: Andreas, 2017) 7. Other changes as described. COMMENTS: Consistent with the [employer]'s Incidental Findings Committee white paper (J Am Ab Radiol 2018): Any incidental renal lesion less than 1 cm or classified as too small to characterize, or any incidental cystic renal lesion characterized as simple-appearing, is likely benign. No follow-up imaging is recommended for these lesions per consensus recommendations based on imaging criteria. REFERENCES: Andreas EJFFREY, et al. Management of Incidental Pancreatic Cysts: A White Paper of the ACR Incidental Findings Committee. J Am Ab Radiol. 2017;14(7):911-923.
[2019-12-13] MEDS ORDERED: Docusate Sodium 100 MG Cap PO PRN (00:54)
[2019-12-13] MEDS ORDERED: Ondansetron 4 MG/2 ML SDV IVPUSH PRN (00:54)
[2019-12-13] MEDS ORDERED: Albuterol/Ipratropium 3.0-0.5 MG/3 ML Neb Soln NEB PRN (00:56)
[2019-12-13] MEDS ORDERED: Potassium Chloride 10 MEQ Tab.ER PO ONE ×3 (01:01→12:38)
--- NOTE | 2019-12-13 01:07 | PCM.HP ---
H&P History of Present Illness - General Date of Service: 12/13/19 Admit Problem/Dx: Admission Diagnosis/Problem Admission Diagnosis/Problem Weakness Source of Information: Patient, Provider - History of Present Illness Initial Comments - Free Text/Narative: 69-year-old lady with a history of hypertension, dyslipidemia, coronary artery disease status post bypass surgery, COPD, seizure disorder. The patient was recently hospitalized at [facility] with the abdominal pain. The patient was noted to have closed loop obstruction and underwent exploratory laparotomy and release of adhesions. She was off her seizure medications and noted to have a seizure. Subsequently Ke ppra 1000 mg twice a day was started. The patient presented with abdominal pain, shortness of breath but most importantly significant weakness. The patient is a fairly lethargic, cannot really give much history. She is opening her eyes and following commands but minimal interaction. Abdomen Pain Score (Numeric/FACES): 4 - Related Data Allergies/Adverse Reactions: Allergies Allergy/AdvReac Type Severity Reaction Status Date / Time atenolol Allergy Cannot Verified 12/12/19 18:36 Remember Home Medications: Home Meds Aspirin [Ecotrin EC] 81 mg PO DAILY 10/04/13 [History] Cholecalciferol (Vitamin D3) [Vitamin D3] 1,000 units PO DAILY 10/04/13 [History] Clopidogrel Bisulfate [Clopidogrel] 75 mg PO DAILY 10/04/13 [History] Lisinopril 10 mg PO DAILY 10/04/13 [History] Phenytoin Sodium Extended 200 mg PO BID 10/04/13 [History] Primidone 500 mg PO BID 10/04/13 [History] atorvaSTATin Calcium [Atorvastatin Calcium] 40 mg PO BEDTIME 05/09/16 [History] Ibuprofen [Ibu] 400 mg PO Q4HR PRN 09/18/17 [History] Naproxen [Naprosyn] 500 mg PO Q12HR 09/18/17 [History] Phenytoin [Dilantin] 30 mg PO BEDTIME 09/18/17 [History] Alendronate Sodium [Fosamax] 70 mg PO WEEKLY 12/13/19 [History] levETIRAcetam [Keppra] 1,000 mg PO BID 12/13/19 [History] Past Medical History HEENT History: Reports: Hard of Hearing, Impaired Vision Other HEENT History: wears glasses Cardiovascular History: Reports: Angina, Bypass, CAD, High Cholesterol, Hypertension Respiratory History: Reports: Bronchitis, Recurrent Gastrointestinal History: Reports: None Other Gastrointestinal History: Recent surg. to abd. Genitourinary History: Reports: None [employer] History: Reports: 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 Uterine Bleeding, Musculoskeletal History: Reports: Arthritis Neurological History: Reports: Seizure Psychiatric History: Reports: None Endocrine/Metabolic History: Reports: None Hematologic History: Reports: None, Anemia, Blood Transfusion(s) Immunologic History: Reports: None Oncologic (Cancer) History: Reports: Breast Dermatologic History: Reports: None - Infectious Disease History Infectious Disease History: Reports: Chicken Pox, Mumps - Past Surgical History Head Surgeries/Procedures: Reports: None HEENT Surgical History: Reports: None Other Cardiovascular Surgeries/Procedures: bypass unsure of stents Respiratory Surgical History: Reports: None Neurological Surgical History: Reports: None Oncologic Surgical History: Reports: Biopsy of Breast Social & Family History - Family History Family Medical History: Noncontributory Cardiac: Reports: Other (See Below) Other Cardiac Family History: "heart problems" - Tobacco Use Tobacco Use Status *Q: Former Tobacco User Years of Tobacco use: 40 Packs/Tins Daily: 1 Used Tobacco, but Quit: Yes Month/Year Tobacco Last Used: february Second Hand Smoke Exposure: No - Caffeine Use Caffeine Use: Reports: Coffee, Soda, Tea - Recreational Drug Use Recreational Drug Use: No - Living Situation & Occupation Living situation: Reports: with Family Occupation: Retired H&P Review of Systems - Review of Systems: Review Of Systems: Unable To Obtain Reason Not Obtained: limited due to patient's lethargy General: Denies: Fever, Chills Pulmonary: Reports: Shortness of Breath Cardiovascular: Denies: Chest Pain, Edema Gastrointestinal: Reports: Abdominal Pain Neurological: Reports: Weakness. Denies: Seizure Exam - Exam Exam: See Below - Vital Signs Vital Signs: Last Vital Signs Temp 98.3 F 12/12/19 18:27 Pulse 63 12/12/19 18:27 Resp 18 12/12/19 18:27 BP 137/71 12/12/19 18:27 Pulse Ox 97 12/12/19 18:27 Weight: 158 lb - Exam Quality Assessment: No: Supplemental Oxygen General: Alert, Lethargic HEENT: EOMI Neck: Supple Lungs: Clear to Auscultation, Normal Respiratory Effort Cardiovascular: Regular Rate, Regular Rhythm GI/Abdominal Exam: Normal Bowel Sounds, Soft, Non-Tender Extremities: Pedal Edema (trace) - Patient Data Lab Results Last 24 hrs: Laboratory Results - last 24 hr 12/12/19 12/12/19 12/12/19 Range/Units 19:16 19:16 19:16 WBC 4.7 L (5.0-10.0) 10^3/uL RBC 3.58 L (4.2-5.4) 10^6/uL Hgb 11.1 L (12.0-16.0) g/dL Hct 35.3 L (37.0-47.0) % MCV 98.6 (80-100) fL MCH 31.0 (27.0-34.0) pg MCHC 31.4 L (33.0-35.0) g/dL Plt Count 382 D (150-450) 10^3/uL Neut % (Auto) 68.5 (42.2-75.2) % Lymph % (Auto) 22.0 (20.5-50.1) % [place] % (Auto) 6.8 (2-8) % Eos % (Auto) 2.5 (1.0-3.0) % Baso % (Auto) 0.2 (0.0-1.0) % Sodium 141 (136-145) mmol/L Potassium 3.4 L (3.5-5.1) mmol/L Chloride 103 (98-107) mmol/L Carbon Dioxide 31 (21-32) mmol/L Anion Gap 10.4 (7-13) mEq/L BUN 14 (7-18) mg/dL Creatinine 0.93 (0.55-1.02) mg/dL Est Cr Clr Drug Dosing 49.99 mL/min Estimated GFR (MDRD) 60 BUN/Creatinine Ratio 15.1 (No establ ref range) Glucose 90 (74-99) mg/dL Lactic Acid 0.9 (0.4-2.0) mmol/L Calcium 8.6 (8.5-10.1) mg/dL Total Bilirubin 0.1 L (0.2-1.0) mg/dL AST 25 (15-37) U/L ALT 15 (14-59) U/L Alkaline Phosphatase 88 (46-116) U/L Troponin I 0.032 (0.000-0.056) ng/mL C-Reactive Protein 1.0 H (0.0-0.9) mg/dL Total Protein 6.3 L (6.4-8.2) g/dL Albumin 2.8 L (3.4-5.0) g/dL Globulin 3.5 Albumin/Globulin Ratio 0.80 Urine Color (YELLOW) Urine Appearance (CLEAR) Urine pH (5.0-9.0) Ur Specific [place] (1.005-1.030) Urine Protein (NEGATIVE) Urine Glucose (UA) (NEGATIVE) Urine Ketones (NEGATIVE) Urine Occult Blood (NEGATIVE) Urine Nitrite (NEGATIVE) Urine Bilirubin (NEGATIVE) Urine Urobilinogen (0.2-1.0) mg/dL Ur Leukocyte Esterase (NEGATIVE) Urine RBC /HPF Urine WBC (0-5/HPF) /HPF Ur Epithelial Cells (NOT SEEN) /HPF Amorphous Sediment (NOT SEEN) /HPF Urine Bacteria (0-FEW/HPF) /HPF Granular Casts (Auto) Urine Mucus (NOT SEEN) /LPF Urine Opiates Screen (NEGATIVE) Ur Oxycodone Screen (NEGATIVE) Urine Methadone Screen (NEGATIVE) Ur Barbiturates Screen (NEGATIVE) U Tricyclic Antidepress (NEGATIVE) Ur Phencyclidine Scrn (NEGATIVE) Ur Amphetamine Screen (NEGATIVE) U Methamphetamines Scrn (NEGATIVE) Urine MDMA Screen (NEGATIVE) U Benzodiazepines Scrn (NEGATIVE) Urine Cocaine Screen (NEGATIVE) U Marijuana (THC) Screen (NEGATIVE) SARS CoV-2 RNA Rapid APURVA (NEGATIVE) 12/12/19 12/12/19 12/12/19 Range/Units 19:54 19:54 23:58 WBC (5.0-10.0) 10^3/uL RBC (4.2-5.4) 10^6/uL Hgb (12.0-16.0) g/dL Hct (37.0-47.0) % MCV (80-100) fL MCH (27.0-34.0) pg MCHC (33.0-35.0) g/dL Plt Count (150-450) 10^3/uL Neut % (Auto) (42.2-75.2) % Lymph % (Auto) (20.5-50.1) % [place] % (Auto) (2-8) % Eos % (Auto) (1.0-3.0) % Baso % (Auto) (0.0-1.0) % Sodium (136-145) mmol/L Potassium (3.5-5.1) mmol/L Chloride (98-107) mmol/L Carbon Dioxide (21-32) mmol/L Anion Gap (7-13) mEq/L BUN (7-18) mg/dL Creatinine (0.55-1.02) mg/dL Est Cr Clr Drug Dosing mL/min Estimated GFR (MDRD) BUN/Creatinine Ratio (No establ ref range) Glucose (74-99) mg/dL Lactic Acid (0.4-2.0) mmol/L Calcium (8.5-10.1) mg/dL Total Bilirubin (0.2-1.0) mg/dL AST (15-37) U/L ALT (14-59) U/L Alkaline Phosphatase (46-116) U/L Troponin I (0.000-0.056) ng/mL C-Reactive Protein (0.0-0.9) mg/dL Total Protein (6.4-8.2) g/dL Albumin (3.4-5.0) g/dL Globulin Albumin/Globulin Ratio Urine Color Dark yellow (YELLOW) Urine Appearance Slightly cloudy (CLEAR) Urine pH 6.0 (5.0-9.0) Ur Specific [place] >= 1.030 (1.005-1.030) Urine Protein 100 H (NEGATIVE) Urine Glucose (UA) Negative (NEGATIVE) Urine Ketones Negative (NEGATIVE) Urine Occult Blood Trace-intact H (NEGATIVE) Urine Nitrite Positive H (NEGATIVE) Urine Bilirubin Negative (NEGATIVE) Urine Urobilinogen 0.2 (0.2-1.0) mg/dL Ur Leukocyte Esterase Negative (NEGATIVE) Urine RBC 0-5 /HPF Urine WBC 5-10 H (0-5/HPF) /HPF Ur Epithelial Cells Moderate H (NOT SEEN) /HPF Amorphous Sediment Few (NOT SEEN) /HPF Urine Bacteria Few (0-FEW/HPF) /HPF Granular Casts (Auto) Few Urine Mucus Rare (NOT SEEN) /LPF Urine Opiates Screen Negative (NEGATIVE) Ur Oxycodone Screen Negative (NEGATIVE) Urine Methadone Screen Negative (NEGATIVE) Ur Barbiturates Screen Positive H (NEGATIVE) U Tricyclic Antidepress Negative (NEGATIVE) Ur Phencyclidine Scrn Negative (NEGATIVE) Ur Amphetamine Screen Negative (NEGATIVE) U Methamphetamines Scrn Negative (NEGATIVE) Urine MDMA Screen Negative (NEGATIVE) U Benzodiazepines Scrn Negative (NEGATIVE) Urine Cocaine Screen Negative (NEGATIVE) U Marijuana (THC) Screen Negative (NEGATIVE) SARS CoV-2 RNA Rapid APURVA Negative (NEGATIVE) Result Diagrams: 12/12/19 19:16 12/12/19 19:16 - Problem List (1) Shortness of breath SNOMED Code(s): 254683964 ICD Code: R06.02 - SHORTNESS OF BREATH Status: Acute Current Visit: Yes (2) Coronary artery disease SNOMED Code(s): 94469382 ICD Code: I25.10 - ATHSCL HEART DISEASE OF [place] CORONARY ARTERY W/O ANG PCTRS Status: Acute Current Visit: Yes (3) Hypertension SNOMED Code(s): 09391166 ICD Code: I10 - ESSENTIAL (PRIMARY) HYPERTENSION Status: Acute Current Visit: Yes (4) Abdominal pain SNOMED Code(s): 96132690 ICD Code: R10.9 - UNSPECIFIED ABDOMINAL PAIN Status: Acute Current Visit: No Qualifiers: Abdominal location: left lower quadrant Qualified Code(s): R10.32 - Left lower quadrant pain (5) Weakness SNOMED Code(s): 44587518 ICD Code: R53.1 - WEAKNESS Status: Acute Current Visit: No Problem List Initiated/Reviewed/Updated: Yes Orders Last 24hrs: Active Orders 24 hr Category Date Time Status Admission Diagnosis [ADT] Urgent ADT 12/12/19 23:51 Ordered Admission Status [Patient Status] [ADT] Routine ADT 12/12/19 23:51 Active EKG Documentation Completion [RC] STAT Care 12/12/19 19:02 Active Oxygen Therapy [RC] PRN Care 12/13/19 00:54 Ordered Peripheral IV Care [RC] . DIRECTED Care 12/13/19 00:56 Ordered RT Aerosol Therapy [RC] ASDIRECTED Care 12/13/19 00:57 Ordered RT Aerosol Therapy [RC] ASDIRECTED Care 12/13/19 00:57 Ordered Up With Assistance [RC] ASDIRECTED Care 12/13/19 00:54 Ordered VTE/DVT Education [RC] PER UNIT ROUTINE Care 12/13/19 00:54 Ordered Vital Signs [RC] Q4H Care 12/13/19 00:54 Ordered Regular Diet [DIET] Diet 12/13/19 Breakfast Ordered Abdomen Pelvis w Cont [CT] Urgent Exams 12/12/19 21:17 Stop Req BASIC METABOLIC PANEL,BMP [CHEM] AM Lab 12/13/19 05:11 Ordered CBC WITH AUTO DIFF [HEME] AM Lab 12/13/19 05:11 Ordered CULTURE URINE [RM] Stat Lab 12/13/19 00:54 Ordered Acetaminophen [TylenoL] Med 12/13/19 00:54 Ordered 650 mg PO Q4H PRN Albuterol/Ipratropium [DuoNeb 3.0-0.5 MG/3 ML] Med 12/13/19 00:56 Ordered 3 ml NEB Q2H PRN Albuterol/Ipratropium [DuoNeb 3.0-0.5 MG/3 ML] Med 12/13/19 01:00 Ordered 3 ml NEB Q6HRRT Aspirin [Halfprin] Med 12/13/19 09:00 Ordered 81 mg PO DAILY Clopidogrel [Plavix] Med 12/13/19 09:00 Ordered 75 mg PO DAILY Docusate Sodium [Colace] Med 12/13/19 00:54 Ordered 100 mg PO BID PRN Heparin Sodium Med 12/13/19 06:00 Ordered 5,000 units SUBCUT Q8HR Ibuprofen [Motrin] Med 12/13/19 00:51 Ordered 400 mg PO Q4HR PRN Ondansetron [Zofran] Med 12/13/19 00:54 Ordered 4 mg IVPUSH Q6H PRN Phenytoin Med 12/13/19 09:00 Ordered 200 mg PO BID Phenytoin [Dilantin] Med 12/13/19 19:00 Ordered 30 mg PO .NIGHTLY Potassium Chloride [Klor-Con 10] Med 12/13/19 01:01 Once 40 meq PO ONETIME ONE Primidone [Mysoline] Med 12/13/19 09:00 Ordered 500 mg PO BID Sodium Chloride 0.9% [Saline Flush] Med 12/13/19 00:54 Ordered 10 ml FLUSH ASDIRECTED PRN atorvaSTATin [Lipitor] Med 12/13/19 21:00 Ordered 40 mg PO BEDTIME levETIRAcetam [Keppra] Med 12/13/19 21:00 Ordered 500 mg PO BID lisinopriL [Prinivil] Med 12/13/19 09:00 Ordered 10 mg PO DAILY Peripheral IV Insertion Adult [OM.PC] Routine Oth 12/13/19 00:54 Ordered Resuscitation Status Routine Resus Stat 12/13/19 00:54 Ordered Medication Orders Acetaminophen (Tylenol) 650 mg PO Q4H PRN PRN Reason: Pain (Mild 1-3)/fever Albuterol/Ipratropium (Duoneb 3.0-0.5 Mg/3 Ml) 3 ml NEB Q2H PRN PRN Reason: sob Albuterol/Ipratropium (Duoneb 3.0-0.5 Mg/3 Ml) 3 ml NEB Q6HRRT TRES Aspirin (Halfprin) 81 mg PO DAILY TRES Atorvastatin Calcium (Lipitor) 40 mg PO BEDTIME TRES Clopidogrel Bisulfate (Plavix) 75 mg PO DAILY TRES Docusate Sodium (Colace) 100 mg PO BID PRN PRN Reason: Constipation Heparin Sodium (Porcine) (Heparin Sodium) 5,000 units SUBCUT Q8HR TRES Ibuprofen (Motrin) 400 mg PO Q4HR PRN PRN Reason: Pain Levetiracetam (Keppra) 500 mg PO BID TRES Lisinopril (Prinivil) 10 mg PO DAILY TRES Ondansetron HCl (Zofran) 4 mg IVPUSH Q6H PRN PRN Reason: Nausea/Vomiting Phenytoin Sodium (Phenytoin) 200 mg PO BID TRES Phenytoin Sodium (Dilantin) 30 mg PO .NIGHTLY TRES Potassium Chloride (Klor-Con 10) 40 meq PO ONETIME ONE Stop: 12/13/19 01:02 Primidone (Mysoline) 500 mg PO BID [facility] Sodium Chloride (Saline Flush) 10 ml FLUSH ASDIRECTED PRN PRN Reason: Keep Vein Open Assessment/Plan Comment:: 69-year-old lady with a history of hypertension, dyslipidemia, coronary artery disease status post bypass surgery, COPD, seizure disorder. The patient was recently hospitalized at [facility] with the abdominal pain. The patient was noted to have closed loop obstruction and underwent exploratory laparotomy and release of adhesions. She was off her seizure medications and noted to have a seizure. Subsequently Keppra 1000 mg twice a day was started. The patient presented with abdominal pain, shortness of breath but most importantly significant weakness. The patient is a fairly lethargic, cannot really give much history. She is opening her eyes and following commands but minimal interaction. Lethargy, weakness Likely related to new seizure medications The patient was recently started on Keppra 1000 mg twice a day She has been continued on phenytoin, primidone Doubt ongoing seizure activity Very cut down Keppra to 500 mg twice a day Will have physical and occupational therapy The patient has history of COPD but appears to have good breathing pattern Doubt significant CO2 retention that would be responsible for the weakness Hypertension Continue lisinopril Abnormal UA Likely contaminant Will send urine culture Well hold antibiotics for now Coronary artery disease Continue aspirin, statin, Plavix, Lisinopril Shortness of breath History of COPD Chest x-ray showed no pneumonia or CHF or pleural effusion Abnormal left hilar contour was partially imaged by CT, follow-up with outpatient full chest CT Will use scheduled and as needed nebulizers Recent small bowel obstruction, ischemic bowel CT describing nonspecific bowel pattern, mild mucosal thickening This is likely related to prior injury Well monitor DVT prophylaxis with subcutaneous heparin
[2019-12-13] MEDS: Albuterol/Ipratropium 3.0-0.5 MG/3 ML Neb Soln NEB SCH ×4 (01:42→18:32)
[2019-12-13] MEDS: Heparin Sodium 5,000 Units/ML Vial SUBCUT SCH ×3 (06:05→22:48)
[2019-12-13 07:34] LABS: ANION GAP 10.4 mEq/L (7-13); CHLORIDE,CL 105 mmol/L (98-107); SODIUM,NA 141 mmol/L (136-145)
[2019-12-13] MEDS: Lisinopril 10 MG Tab PO SCH (09:08)
[2019-12-13] MEDS: Clopidogrel 75 MG Tab PO SCH (09:08)
[2019-12-13] MEDS: Primidone 250 MG Tab PO SCH ×2 (09:08→20:21)
[2019-12-13] MEDS: Phenytoin 100 MG Cap.ER PO SCH ×2 (09:08→20:21)
[2019-12-13] MEDS: Aspirin 81 MG Tab.EC PO SCH (09:08)
--- NOTE | 2019-12-13 12:44 | PCM.PN ---
- General Info Date of Service: 12/13/19 Admission Dx/Problem (Free Text): Admission Diagnosis/Problem Admission Diagnosis/Problem Weakness Subjective Update: Continues to be generally weak but appears improved from last night. weakness started days prior to admission. No complains of pain, no headache, no seizure. No fever, no chills. No chest pain no abdominal pain, tolerating diet. Functional Status: Reports: Pain Controlled, Tolerating Diet - Review of Systems Pulmonary: Denies: Shortness of Breath Cardiovascular: Denies: Chest Pain, Edema Gastrointestinal: Denies: Abdominal Pain Neurological: Reports: Weakness. Denies: Confusion - Patient Data Vitals - Most Recent: Last Vital Signs Temp 97.2 F 12/13/19 08:46 Pulse 64 12/13/19 08:46 Resp 20 12/13/19 08:46 BP 150/88 H 12/13/19 08:46 Pulse Ox 95 12/13/19 08:46 Weight - Most Recent: 158 lb Lab Results Last 24 Hours: Laboratory Results - last 24 hr 12/12/19 12/12/19 12/12/19 Range/Units 19:16 19:16 19:16 WBC 4.7 L (5.0-10.0) 10^3/uL RBC 3.58 L (4.2-5.4) 10^6/uL Hgb 11.1 L (12.0-16.0) g/dL Hct 35.3 L (37.0-47.0) % MCV 98.6 (80-100) fL MCH 31.0 (27.0-34.0) pg MCHC 31.4 L (33.0-35.0) g/dL Plt Count 382 D (150-450) 10^3/uL Neut % (Auto) 68.5 (42.2-75.2) % Lymph % (Auto) 22.0 (20.5-50.1) % [place] % (Auto) 6.8 (2-8) % Eos % (Auto) 2.5 (1.0-3.0) % Baso % (Auto) 0.2 (0.0-1.0) % Sodium 141 (136-145) mmol/L Potassium 3.4 L (3.5-5.1) mmol/L Chloride 103 (98-107) mmol/L Carbon Dioxide 31 (21-32) mmol/L Anion Gap 10.4 (7-13) mEq/L BUN 14 (7-18) mg/dL Creatinine 0.93 (0.55-1.02) mg/dL Est Cr Clr Drug Dosing 49.99 mL/min Estimated GFR (MDRD) 60 BUN/Creatinine Ratio 15.1 (No establ ref range) Glucose 90 (74-99) mg/dL Lactic Acid 0.9 (0.4-2.0) mmol/L Calcium 8.6 (8.5-10.1) mg/dL Total Bilirubin 0.1 L (0.2-1.0) mg/dL AST 25 (15-37) U/L ALT 15 (14-59) U/L Alkaline Phosphatase 88 (46-116) U/L Troponin I 0.032 (0.000-0.056) ng/mL C-Reactive Protein 1.0 H (0.0-0.9) mg/dL Total Protein 6.3 L (6.4-8.2) g/dL Albumin 2.8 L (3.4-5.0) g/dL Globulin 3.5 Albumin/Globulin Ratio 0.80 Urine Color (YELLOW) Urine Appearance (CLEAR) Urine pH (5.0-9.0) Ur Specific [place] (1.005-1.030) Urine Protein (NEGATIVE) Urine Glucose (UA) (NEGATIVE) Urine Ketones (NEGATIVE) Urine Occult Blood (NEGATIVE) Urine Nitrite (NEGATIVE) Urine Bilirubin (NEGATIVE) Urine Urobilinogen (0.2-1.0) mg/dL Ur Leukocyte Esterase (NEGATIVE) Urine RBC /HPF Urine WBC (0-5/HPF) /HPF Ur Epithelial Cells (NOT SEEN) /HPF Amorphous Sediment (NOT SEEN) /HPF Urine Bacteria (0-FEW/HPF) /HPF Granular Casts (Auto) Urine Mucus (NOT SEEN) /LPF Urine Opiates Screen (NEGATIVE) Ur Oxycodone Screen (NEGATIVE) Urine Methadone Screen (NEGATIVE) Ur Barbiturates Screen (NEGATIVE) U Tricyclic Antidepress (NEGATIVE) Ur Phencyclidine Scrn (NEGATIVE) Ur Amphetamine Screen (NEGATIVE) U Methamphetamines Scrn (NEGATIVE) Urine MDMA Screen (NEGATIVE) U Benzodiazepines Scrn (NEGATIVE) Urine Cocaine Screen (NEGATIVE) U Marijuana (THC) Screen (NEGATIVE) SARS CoV-2 RNA Rapid APURVA (NEGATIVE) 12/12/19 12/12/19 12/12/19 Range/Units 19:54 19:54 23:58 WBC (5.0-10.0) 10^3/uL RBC (4.2-5.4) 10^6/uL Hgb (12.0-16.0) g/dL Hct (37.0-47.0) % MCV (80-100) fL MCH (27.0-34.0) pg MCHC (33.0-35.0) g/dL Plt Count (150-450) 10^3/uL Neut % (Auto) (42.2-75.2) % Lymph % (Auto) (20.5-50.1) % [place] % (Auto) (2-8) % Eos % (Auto) (1.0-3.0) % Baso % (Auto) (0.0-1.0) % Sodium (136-145) mmol/L Potassium (3.5-5.1) mmol/L Chloride (98-107) mmol/L Carbon Dioxide (21-32) mmol/L Anion Gap (7-13) mEq/L BUN (7-18) mg/dL Creatinine (0.55-1.02) mg/dL Est Cr Clr Drug Dosing mL/min Estimated GFR (MDRD) BUN/Creatinine Ratio (No establ ref range) Glucose (74-99) mg/dL Lactic Acid (0.4-2.0) mmol/L Calcium (8.5-10.1) mg/dL Total Bilirubin (0.2-1.0) mg/dL AST (15-37) U/L ALT (14-59) U/L Alkaline Phosphatase (46-116) U/L Troponin I (0.000-0.056) ng/mL C-Reactive Protein (0.0-0.9) mg/dL Total Protein (6.4-8.2) g/dL Albumin (3.4-5.0) g/dL Globulin Albumin/Globulin Ratio Urine Color Dark yellow (YELLOW) Urine Appearance Slightly cloudy (CLEAR) Urine pH 6.0 (5.0-9.0) Ur Specific [place] >= 1.030 (1.005-1.030) Urine Protein 100 H (NEGATIVE) Urine Glucose (UA) Negative (NEGATIVE) Urine Ketones Negative (NEGATIVE) Urine Occult Blood Trace-intact H (NEGATIVE) Urine Nitrite Positive H (NEGATIVE) Urine Bilirubin Negative (NEGATIVE) Urine Urobilinogen 0.2 (0.2-1.0) mg/dL Ur Leukocyte Esterase Negative (NEGATIVE) Urine RBC 0-5 /HPF Urine WBC 5-10 H (0-5/HPF) /HPF Ur Epithelial Cells Moderate H (NOT SEEN) /HPF Amorphous Sediment Few (NOT SEEN) /HPF Urine Bacteria Few (0-FEW/HPF) /HPF Granular Casts (Auto) Few Urine Mucus Rare (NOT SEEN) /LPF Urine Opiates Screen Negative (NEGATIVE) Ur Oxycodone Screen Negative (NEGATIVE) Urine Methadone Screen Negative (NEGATIVE) Ur Barbiturates Screen Positive H (NEGATIVE) U Tricyclic Antidepress Negative (NEGATIVE) Ur Phencyclidine Scrn Negative (NEGATIVE) Ur Amphetamine Screen Negative (NEGATIVE) U Methamphetamines Scrn Negative (NEGATIVE) Urine MDMA Screen Negative (NEGATIVE) U Benzodiazepines Scrn Negative (NEGATIVE) Urine Cocaine Screen Negative (NEGATIVE) U Marijuana (THC) Screen Negative (NEGATIVE) SARS CoV-2 RNA Rapid APURVA Negative (NEGATIVE) 12/13/19 12/13/19 Range/Units 07:05 07:05 WBC 4.1 L (5.0-10.0) 10^3/uL RBC 3.39 L (4.2-5.4) 10^6/uL Hgb 10.4 L (12.0-16.0) g/dL Hct 33.0 L (37.0-47.0) % MCV 97.3 (80-100) fL MCH 30.7 (27.0-34.0) pg MCHC 31.5 L (33.0-35.0) g/dL Plt Count 352 (150-450) 10^3/uL Neut % (Auto) 69.1 (42.2-75.2) % Lymph % (Auto) 21.4 (20.5-50.1) % [place] % (Auto) 6.6 (2-8) % Eos % (Auto) 2.4 (1.0-3.0) % Baso % (Auto) 0.5 (0.0-1.0) % Sodium 141 (136-145) mmol/L Potassium 3.4 L (3.5-5.1) mmol/L Chloride 105 (98-107) mmol/L Carbon Dioxide 29 (21-32) mmol/L Anion Gap 10.4 (7-13) mEq/L BUN 14 (7-18) mg/dL Creatinine 0.59 (0.55-1.02) mg/dL Est Cr Clr Drug Dosing 85.43 mL/min Estimated GFR (MDRD) > 60 BUN/Creatinine Ratio (No establ ref range) Glucose 91 (74-99) mg/dL Lactic Acid (0.4-2.0) mmol/L Calcium 8.3 L (8.5-10.1) mg/dL Total Bilirubin (0.2-1.0) mg/dL AST (15-37) U/L ALT (14-59) U/L Alkaline Phosphatase (46-116) U/L Troponin I (0.000-0.056) ng/mL C-Reactive Protein (0.0-0.9) mg/dL Total Protein (6.4-8.2) g/dL Albumin (3.4-5.0) g/dL Globulin Albumin/Globulin Ratio Urine Color (YELLOW) Urine Appearance (CLEAR) Urine pH (5.0-9.0) Ur Specific [place] (1.005-1.030) Urine Protein (NEGATIVE) Urine Glucose (UA) (NEGATIVE) Urine Ketones (NEGATIVE) Urine Occult Blood (NEGATIVE) Urine Nitrite (NEGATIVE) Urine Bilirubin (NEGATIVE) Urine Urobilinogen (0.2-1.0) mg/dL Ur Leukocyte Esterase (NEGATIVE) Urine RBC /HPF Urine WBC (0-5/HPF) /HPF Ur Epithelial Cells (NOT SEEN) /HPF Amorphous Sediment (NOT SEEN) /HPF Urine Bacteria (0-FEW/HPF) /HPF Granular Casts (Auto) Urine Mucus (NOT SEEN) /LPF Urine Opiates Screen (NEGATIVE) Ur Oxycodone Screen (NEGATIVE) Urine Methadone Screen (NEGATIVE) Ur Barbiturates Screen (NEGATIVE) U Tricyclic Antidepress (NEGATIVE) Ur Phencyclidine Scrn (NEGATIVE) Ur Amphetamine Screen (NEGATIVE) U Methamphetamines Scrn (NEGATIVE) Urine MDMA Screen (NEGATIVE) U Benzodiazepines Scrn (NEGATIVE) Urine Cocaine Screen (NEGATIVE) U Marijuana (THC) Screen (NEGATIVE) SARS CoV-2 RNA Rapid APURVA (NEGATIVE) Med Orders - Current: Current Medications Acetaminophen (Tylenol) 650 mg PO Q4H PRN PRN Reason: Pain (Mild 1-3)/fever Albuterol/Ipratropium (Duoneb 3.0-0.5 Mg/3 Ml) 3 ml NEB Q2H PRN PRN Reason: sob Albuterol/Ipratropium (Duoneb 3.0-0.5 Mg/3 Ml) 3 ml NEB Q6HRRT [facility] Last Admin: 12/13/19 07:26 Dose: 3 ml Documented by: Aspirin (Halfprin) 81 mg PO DAILY [facility] Last Admin: 12/13/19 09:08 Dose: Not Given Documented by: Atorvastatin Calcium (Lipitor) 40 mg PO BEDTIME [facility] Clopidogrel Bisulfate (Plavix) 75 mg PO DAILY [facility] Last Admin: 12/13/19 09:08 Dose: Not Given Documented by: Docusate Sodium (Colace) 100 mg PO BID PRN PRN Reason: Constipation Heparin Sodium (Porcine) (Heparin Sodium) 5,000 units SUBCUT Q8HR [facility] Last Admin: 12/13/19 06:05 Dose: 5,000 units Documented by: Ibuprofen (Motrin) 400 mg PO Q4HR PRN PRN Reason: Pain Levetiracetam (Keppra) 500 mg PO BID [facility] Lisinopril (Prinivil) 10 mg PO DAILY [facility] Last Admin: 12/13/19 09:08 Dose: Not Given Documented by: Ondansetron HCl (Zofran) 4 mg IVPUSH Q6H PRN PRN Reason: Nausea/Vomiting Phenytoin Sodium (Phenytoin) 200 mg PO BID [facility] Last Admin: 12/13/19 09:08 Dose: Not Given Documented by: Phenytoin Sodium (Dilantin) 30 mg PO DAILY@1900 [facility] Primidone (Mysoline) 500 mg PO BID [facility] Last Admin: 12/13/19 09:08 Dose: Not Given Documented by: Sodium Chloride (Saline Flush) 10 ml FLUSH ASDIRECTED PRN PRN Reason: Keep Vein Open Discontinued Medications Iopamidol (Isovue-300 (61%)) 100 ml IVPUSH ONETIME ONE Stop: 12/12/19 21:18 Potassium Chloride (Klor-Con 10) 40 meq PO ONETIME ONE Stop: 12/13/19 01:02 Last Admin: 12/13/19 01:42 Dose: 40 meq Documented by: Potassium Chloride (Klor-Con 10) 40 meq PO ONETIME ONE Stop: 12/13/19 12:33 - Exam Quality Assessment: No: Supplemental Oxygen General: Alert, Oriented Neck: Supple Lungs: Clear to Auscultation, Normal Respiratory Effort Cardiovascular: Regular Rate, Regular Rhythm GI/Abdominal Exam: Normal Bowel Sounds, Soft, Non-Tender Extremities: No Pedal Edema Skin: Warm Neurological: No New Focal Deficit Psy/Mental Status: Alert, Normal Affect, Normal Mood Sepsis Event Note - Evaluation Sepsis Screening Result: No Definite Risk - Focused Exam Vital Signs: Vital Signs Temp Pulse Resp BP Pulse Ox Pulse Ox 12/13/19 08:46 97.2 F 64 20 150/88 H 95 12/13/19 07:32 63 93 L 12/13/19 00:57 98.1 F 65 18 122/85 98 - Problem List & Annotations (1) Shortness of breath SNOMED Code(s): 023564036 Code(s): R06.02 - SHORTNESS OF BREATH Status: Acute Current Visit: Yes (2) Coronary artery disease SNOMED Code(s): 55997662 Code(s): I25.10 - ATHSCL HEART DISEASE OF [place] CORONARY ARTERY W/O ANG PCTRS Status: Acute Current Visit: Yes (3) Hypertension SNOMED Code(s): 74585521 Code(s): I10 - ESSENTIAL (PRIMARY) HYPERTENSION Status: Acute Current Visit: Yes (4) Abdominal pain SNOMED Code(s): 26723868 Code(s): R10.9 - UNSPECIFIED ABDOMINAL PAIN Status: Acute Current Visit: No Qualifiers: Abdominal location: left lower quadrant Qualified Code(s): R10.32 - Left lower quadrant pain (5) Weakness SNOMED Code(s): 21670771 Code(s): R53.1 - WEAKNESS Status: Acute Current Visit: No - Problem List Review Problem List Initiated/Reviewed/Updated: Yes - My Orders Last 24 Hours: My Active Orders 12/12/19 19:54 CULTURE URINE [RM] Stat 12/13/19 00:51 Ibuprofen [Motrin] 400 mg PO Q4HR PRN 12/13/19 00:54 Oxygen Therapy [RC] PRN Up With Assistance [RC] ASDIRECTED VTE/DVT Education [RC] PER UNIT ROUTINE Vital Signs [RC] 04,08,12,16,20,00 Acetaminophen [TylenoL] 650 mg PO Q4H PRN Docusate Sodium [Colace] 100 mg PO BID PRN Ondansetron [Zofran] 4 mg IVPUSH Q6H PRN Sodium Chloride 0.9% [Saline Flush] 10 ml FLUSH ASDIRECTED PRN Peripheral IV Insertion Adult [OM.PC] Routine Resuscitation Status Routine 12/13/19 00:56 Peripheral IV Care [RC] 09,21 Albuterol/Ipratropium [DuoNeb 3.0-0.5 MG/3 ML] 3 ml NEB Q2H PRN 12/13/19 00:57 RT Aerosol Therapy [RC] .PRN RT Aerosol Therapy [RC] ,,,18 12/13/19 01:00 Albuterol/Ipratropium [DuoNeb 3.0-0.5 MG/3 ML] 3 ml NEB Q6HRRT 12/13/19 06:00 Heparin Sodium 5,000 units SUBCUT Q8HR 12/13/19 Breakfast Regular Diet [DIET] 12/13/19 09:00 Aspirin [Halfprin] 81 mg PO DAILY Clopidogrel [Plavix] 75 mg PO DAILY Phenytoin 200 mg PO BID Primidone [Mysoline] 500 mg PO BID lisinopriL [Prinivil] 10 mg PO DAILY 12/13/19 12:37 DILANTIN,PHENYTOIN [CHEM] Routine 12/13/19 12:38 Potassium Chloride [Klor-Con 10] 40 meq PO ONETIME ONE 12/13/19 19:00 Phenytoin [Dilantin] 30 mg PO DAILY@1900 12/13/19 21:00 atorvaSTATin [Lipitor] 40 mg PO BEDTIME levETIRAcetam [Keppra] 500 mg PO BID - Plan Plan:: 69-year-old lady with a history of hypertension, dyslipidemia, coronary artery disease status post bypass surgery, COPD, seizure disorder. The patient was recently hospitalized at [facility] with the abdominal pain. The patient was noted to have closed loop obstruction and underwent exploratory laparotomy and release of adhesions. She was off her seizure medications and noted to have a seizure. Subsequently Keppra 1000 mg twice a day was started. The patient presented with abdominal pain, shortness of breath but most importantly significant weakness. The patient is a fairly lethargic, cannot really give much history. She is opening her eyes and following commands but minimal interaction. Lethargy, weakness Likely related to new seizure medications The patient was recently started on Keppra 1000 mg twice a day She has been continued on phenytoin, primidone Doubt ongoing seizure activity cut down Keppra to 500 mg twice a day check phenytoin level Will have physical and occupational therapy The patient has history of COPD but appears to have good breathing pattern Doubt significant CO2 retention that would be responsible for the weakness Hypertension Continue lisinopril Abnormal UA Likely contaminant pending urine culture Well hold antibiotics for now Coronary artery disease Continue aspirin, statin, Plavix, Lisinopril Shortness of breath History of COPD Chest x-ray showed no pneumonia or CHF or pleural effusion Abnormal left hilar contour was partially imaged by CT, follow-up with outpatient full chest CT Will use scheduled and as needed nebulizers Recent small bowel obstruction, ischemic bowel CT describing nonspecific bowel pattern, mild mucosal thickening This is likely related to prior ischemic injury from recent closed loop obstruction tolerating diet Well monitor DVT prophylaxis with subcutaneous heparin
[2019-12-13] MEDS: Phenytoin 30 MG Cap.ER PO SCH (18:31)
[2019-12-13] MEDS: atorvaSTATin 10 MG Tab PO SCH (20:21)
[2019-12-13] MEDS: levETIRAcetam 500 MG Tab PO SCH (20:22)
[2019-12-13] MEDS: Sodium Chloride 0.9% 10 ML Syringe FLUSH PRN ×2 (20:25→20:26)
[2019-12-13] MEDS: Acetaminophen 325 MG Tab PO PRN (22:48)
[2019-12-14] MEDS: Albuterol/Ipratropium 3.0-0.5 MG/3 ML Neb Soln NEB SCH ×4 (00:35→17:37)
[2019-12-14] MEDS: Acetaminophen 325 MG Tab PO PRN (03:13)
[2019-12-14] MEDS: Ibuprofen 400 MG Tab PO PRN (03:33)
[2019-12-14] MEDS: Heparin Sodium 5,000 Units/ML Vial SUBCUT SCH ×3 (06:06→22:21)
[2019-12-14 07:06] LABS: CHLORIDE,CL 104 mmol/L (98-107); SODIUM,NA 139 mmol/L (136-145)
[2019-12-14] MEDS: levETIRAcetam 500 MG Tab PO SCH ×2 (09:27→22:26)
[2019-12-14] MEDS: Primidone 250 MG Tab PO SCH ×2 (09:27→22:25)
[2019-12-14] MEDS: Clopidogrel 75 MG Tab PO SCH (09:27)
[2019-12-14] MEDS: Phenytoin 100 MG Cap.ER PO SCH ×2 (09:27→22:25)
[2019-12-14] MEDS: Lisinopril 10 MG Tab PO SCH (09:27)
[2019-12-14] MEDS: Aspirin 81 MG Tab.EC PO SCH (09:27)
--- NOTE | 2019-12-14 11:35 | PCM.PN ---
- General Info Date of Service: 12/14/19 Admission Dx/Problem (Free Text): Admission Diagnosis/Problem Admission Diagnosis/Problem Weakness Functional Status: Reports: Pain Controlled, Tolerating Diet - Review of Systems General: Reports: Weakness Pulmonary: Denies: Shortness of Breath Cardiovascular: Denies: Chest Pain, Edema Neurological: Denies: Seizure - Patient Data Vitals - Most Recent: Last Vital Signs Temp 97.3 F 12/14/19 07:50 Pulse 63 12/14/19 08:00 Resp 18 12/14/19 07:50 BP 145/67 H 12/14/19 09:27 Pulse Ox 94 L 12/14/19 08:00 Weight - Most Recent: 158 lb I&O - Last 24 Hours: Intake & Output 12/13/19 12/14/19 12/14/19 22:59 06:59 14:59 Intake Total 420 150 480 Output Total 100 Balance 320 150 480 Lab Results Last 24 Hours: Laboratory Results - last 24 hr 12/13/19 12/14/19 12/14/19 Range/Units 07:05 06:01 06:01 WBC 4.0 L (5.0-10.0) 10^3/uL RBC 3.47 L (4.2-5.4) 10^6/uL Hgb 10.6 L (12.0-16.0) g/dL Hct 33.7 L (37.0-47.0) % MCV 97.1 (80-100) fL MCH 30.5 (27.0-34.0) pg MCHC 31.5 L (33.0-35.0) g/dL Plt Count 346 (150-450) 10^3/uL Neut % (Auto) 74.2 (42.2-75.2) % Lymph % (Auto) 17.9 L (20.5-50.1) % [place] % (Auto) 5.5 (2-8) % Eos % (Auto) 2.2 (1.0-3.0) % Baso % (Auto) 0.2 (0.0-1.0) % Sodium 139 (136-145) mmol/L Potassium 4.0 (3.5-5.1) mmol/L Chloride 104 (98-107) mmol/L Carbon Dioxide 29 (21-32) mmol/L Anion Gap 10.0 (7-13) mEq/L BUN 9 (7-18) mg/dL Creatinine 0.53 L (0.55-1.02) mg/dL Est Cr Clr Drug Dosing 95.10 mL/min Estimated GFR (MDRD) > 60 Glucose 105 H (74-99) mg/dL Calcium 8.5 (8.5-10.1) mg/dL Phenytoin 6 L (10-20 (Therapeutic)) ug/mL Christiano Results Last 24 Hours: Microbiology 12/12/19 19:54 Urine Culture - Preliminary Urine, Clean Catch Med Orders - Current: Current Medications Acetaminophen (Tylenol) 650 mg PO Q4H PRN PRN Reason: Pain (Mild 1-3)/fever Last Admin: 12/14/19 03:13 Dose: 650 mg Documented by: Albuterol/Ipratropium (Duoneb 3.0-0.5 Mg/3 Ml) 3 ml NEB Q2H PRN PRN Reason: sob Albuterol/Ipratropium (Duoneb 3.0-0.5 Mg/3 Ml) 3 ml NEB Q6HRRT [facility] Last Admin: 12/14/19 07:47 Dose: 3 ml Documented by: Aspirin (Halfprin) 81 mg PO DAILY [facility] Last Admin: 12/14/19 09:27 Dose: 81 mg Documented by: Atorvastatin Calcium (Lipitor) 40 mg PO BEDTIME [facility] Last Admin: 12/13/19 20:21 Dose: 40 mg Documented by: Clopidogrel Bisulfate (Plavix) 75 mg PO DAILY [facility] Last Admin: 12/14/19 09:27 Dose: 75 mg Documented by: Docusate Sodium (Colace) 100 mg PO BID PRN PRN Reason: Constipation Heparin Sodium (Porcine) (Heparin Sodium) 5,000 units SUBCUT Q8HR [facility] Last Admin: 12/14/19 06:06 Dose: 5,000 units Documented by: Ibuprofen (Motrin) 400 mg PO Q4HR PRN PRN Reason: Pain Last Admin: 12/14/19 03:33 Dose: 400 mg Documented by: Levetiracetam (Keppra) 500 mg PO BID [facility] Last Admin: 12/14/19 09:27 Dose: 500 mg Documented by: Lisinopril (Prinivil) 10 mg PO DAILY [facility] Last Admin: 12/14/19 09:27 Dose: 10 mg Documented by: Ondansetron HCl (Zofran) 4 mg IVPUSH Q6H PRN PRN Reason: Nausea/Vomiting Phenytoin Sodium (Phenytoin) 200 mg PO BID [facility] Last Admin: 12/14/19 09:27 Dose: 200 mg Documented by: Phenytoin Sodium (Dilantin) 30 mg PO DAILY@1900 [facility] Last Admin: 12/13/19 18:31 Dose: 30 mg Documented by: Primidone (Mysoline) 500 mg PO BID [facility] Last Admin: 12/14/19 09:27 Dose: 500 mg Documented by: Sodium Chloride (Saline Flush) 10 ml FLUSH ASDIRECTED PRN PRN Reason: Keep Vein Open Last Admin: 12/13/19 20:26 Dose: 10 ml Documented by: Discontinued Medications Iopamidol (Isovue-300 (61%)) 100 ml IVPUSH ONETIME ONE Stop: 12/12/19 21:18 Potassium Chloride (Klor-Con 10) 40 meq PO ONETIME ONE Stop: 12/13/19 01:02 Last Admin: 12/13/19 01:42 Dose: 40 meq Documented by: Potassium Chloride (Klor-Con 10) 40 meq PO ONETIME ONE Stop: 12/13/19 12:33 Last Admin: 12/13/19 14:05 Dose: 40 meq Documented by: - Exam General: Alert, Oriented Neck: Supple Lungs: Clear to Auscultation, Normal Respiratory Effort Cardiovascular: Regular Rate, Regular Rhythm GI/Abdominal Exam: Normal Bowel Sounds, Soft, Non-Tender Extremities: No Pedal Edema Skin: Other (surgical incision is intact) Neurological: No New Focal Deficit Psy/Mental Status: Alert, Other (appears sleepy but arousable easily) Sepsis Event Note - Evaluation Sepsis Screening Result: No Definite Risk - Focused Exam Vital Signs: Vital Signs Temp Pulse Resp BP BP BP Pulse Ox 12/14/19 09:27 145/67 H 12/14/19 08:00 63 12/14/19 07:50 97.3 F 63 18 145/67 H 94 L 12/14/19 06:04 145/75 H 12/14/19 03:38 97.6 F 70 20 170/71 H 96 12/14/19 00:59 71 Pulse Ox 12/14/19 09:27 12/14/19 08:00 94 L 12/14/19 07:50 12/14/19 06:04 12/14/19 03:38 12/14/19 00:59 96 - Problem List & Annotations (1) Shortness of breath SNOMED Code(s): 939453100 Code(s): R06.02 - SHORTNESS OF BREATH Status: Acute Current Visit: Yes (2) Coronary artery disease SNOMED Code(s): 63553737 Code(s): I25.10 - ATHSCL HEART DISEASE OF [place] CORONARY ARTERY W/O ANG PCTRS Status: Acute Current Visit: Yes (3) Hypertension SNOMED Code(s): 21519972 Code(s): I10 - ESSENTIAL (PRIMARY) HYPERTENSION Status: Acute Current Visit: Yes (4) Abdominal pain SNOMED Code(s): 30853715 Code(s): R10.9 - UNSPECIFIED ABDOMINAL PAIN Status: Acute Current Visit: No Qualifiers: Abdominal location: left lower quadrant Qualified Code(s): R10.32 - Left lower quadrant pain (5) Weakness SNOMED Code(s): 74393506 Code(s): R53.1 - WEAKNESS Status: Acute Current Visit: No - Problem List Review Problem List Initiated/Reviewed/Updated: Yes - My Orders Last 24 Hours: My Active Orders 12/13/19 19:00 Phenytoin [Dilantin] 30 mg PO DAILY@1900 12/13/19 21:00 atorvaSTATin [Lipitor] 40 mg PO BEDTIME levETIRAcetam [Keppra] 500 mg PO BID 12/14/19 09:43 PT Evaluation and Treatment [CONS] Routine 12/14/19 09:44 OT Evaluation and Treatment [CONS] Routine 12/14/19 11:29 AMMONIA VENOUS [CHEM] Routine - Plan Plan:: 69-year-old lady with a history of hypertension, dyslipidemia, coronary artery disease status post bypass surgery, COPD, seizure disorder. The patient was recently hospitalized at [facility] with the abdominal pain. The patient was noted to have closed loop obstruction and underwent exploratory laparotomy and release of adhesions. She was off her seizure medications and noted to have a seizure. Subsequently Keppra 1000 mg twice a day was started. The patient presented with abdominal pain, shortness of breath but most importantly significant weakness. The patient is a fairly lethargic, cannot really give much history. She is opening her eyes and following commands but minimal interaction. Lethargy, weakness Likely related to new seizure medications The patient was recently started on Keppra 1000 mg twice a day She has been continued on phenytoin, primidone Doubt ongoing seizure activity cut down Keppra to 500 mg twice a day phenytoin level not elevated Will have physical and occupational therapy eval and treat get ABG r/o co2 retention Hypertension Continue lisinopril Abnormal UA urine culture showed gram neg rods - further id and sensitivity is pending start cipro Coronary artery disease Continue aspirin, statin, Plavix, Lisinopril Shortness of breath History of COPD Chest x-ray showed no pneumonia or CHF or pleural effusion Abnormal left hilar contour was partially imaged by CT, follow-up with outpatient full chest CT Will use scheduled and as needed nebulizers Recent small bowel obstruction, ischemic bowel CT describing nonspecific bowel pattern, mild mucosal thickening This is likely related to prior ischemic injury from recent closed loop obstruction tolerating diet Well monitor DVT prophylaxis with subcutaneous heparin
[2019-12-14] MEDS: Ciprofloxacin 500 MG Tab PO SCH ×2 (13:03→22:25)
[2019-12-14 14:21] LABS: BASE EXCESS ARTERIAL 4 mmol/L ((-2)-(+3)); BICARBONATE,ARTERIAL 27.6 mmol/L (22-26); O2 DELIVERY DEVICE ROOM AIR; O2 SATURATION ARTERIAL 93 % (95-100); PCO2 ARTERIAL 42 mmHg (35-45); PO2 ARTERIAL 67 mmHg (70-100)
[2019-12-14 14:24] LABS: ALLEN TEST rb; O2 FLOW RATE 0
[2019-12-14] MEDS ORDERED: Lactulose Soln 10 GM/15 ML 30 ML UD Cup PO ONE (16:05)
[2019-12-14] MEDS: Phenytoin 30 MG Cap.ER PO SCH (18:06)
[2019-12-14] MEDS: Sodium Chloride 0.9% 10 ML Syringe FLUSH PRN ×2 (22:16→22:17)
[2019-12-14] MEDS: atorvaSTATin 10 MG Tab PO SCH (22:24)
[2019-12-14] MEDS: Lactulose Soln 10 GM/15 ML 30 ML UD Cup PO SCH (22:26)
[2019-12-15] MEDS: Albuterol/Ipratropium 3.0-0.5 MG/3 ML Neb Soln NEB SCH ×4 (01:19→18:30)
[2019-12-15] MEDS: Heparin Sodium 5,000 Units/ML Vial SUBCUT SCH ×4 (04:58→22:18)
[2019-12-15 07:38] LABS: ANION GAP 11.6 mEq/L (7-13); CHLORIDE,CL 103 mmol/L (98-107); SODIUM,NA 138 mmol/L (136-145)
[2019-12-15] MEDS: Clopidogrel 75 MG Tab PO SCH (09:11)
[2019-12-15] MEDS: Aspirin 81 MG Tab.EC PO SCH (09:11)
[2019-12-15] MEDS: levETIRAcetam 500 MG Tab PO SCH ×2 (09:12→22:17)
[2019-12-15] MEDS: Lisinopril 10 MG Tab PO SCH (09:12)
[2019-12-15] MEDS: Ciprofloxacin 500 MG Tab PO SCH ×2 (09:12→22:14)
[2019-12-15] MEDS: Primidone 250 MG Tab PO SCH ×2 (09:13→22:16)
[2019-12-15] MEDS: Phenytoin 100 MG Cap.ER PO SCH ×2 (09:13→22:16)
[2019-12-15] MEDS: Lactulose Soln 10 GM/15 ML 30 ML UD Cup PO SCH ×3 (09:14→22:14)
--- NOTE | 2019-12-15 09:17 | PCM.PN ---
- General Info Date of Service: 12/15/19 Admission Dx/Problem (Free Text): Admission Diagnosis/Problem Admission Diagnosis/Problem Weakness Subjective Update: Continues to be generally weak but appears improved further improved since admission. weakness started days prior to admission. No complains of pain, no headache, no seizure. No fever, no chills. No chest pain no abdominal pain, tolerating diet. had a bowel movement this morning she is easily arousable and oriented and can't recall recent events and hospitalizations - Review of Systems General: Reports: Weakness. Denies: Fever Pulmonary: Denies: Shortness of Breath Cardiovascular: Denies: Chest Pain, Edema Gastrointestinal: Denies: Abdominal Pain Neurological: Reports: Other (lethargic). Denies: Confusion - Patient Data Vitals - Most Recent: Last Vital Signs Temp 98.2 F 12/15/19 08:00 Pulse 72 12/15/19 08:00 Resp 20 12/15/19 08:00 BP 134/75 12/15/19 09:12 Pulse Ox 100 12/15/19 08:00 Weight - Most Recent: 158 lb I&O - Last 24 Hours: Intake & Output 12/14/19 12/15/19 12/15/19 22:59 06:59 14:59 Intake Total 440 Output Total 100 100 Balance 440 -100 -100 Lab Results Last 24 Hours: Laboratory Results - last 24 hr 12/14/19 12/14/19 12/15/19 Range/Units 11:56 14:20 06:03 WBC 4.8 L (5.0-10.0) 10^3/uL RBC 3.26 L (4.2-5.4) 10^6/uL Hgb 10.2 L (12.0-16.0) g/dL Hct 32.1 L (37.0-47.0) % MCV 98.5 (80-100) fL MCH 31.3 (27.0-34.0) pg MCHC 31.8 L (33.0-35.0) g/dL Plt Count 350 (150-450) 10^3/uL Neut % (Auto) 71.5 (42.2-75.2) % Lymph % (Auto) 20.3 L (20.5-50.1) % [place] % (Auto) 6.1 (2-8) % Eos % (Auto) 1.9 (1.0-3.0) % Baso % (Auto) 0.2 (0.0-1.0) % ABG pH 7.44 (7.35-7.45) ABG pCO2 42 (35-45) mmHg ABG pO2 67 L (70-100) mmHg ABG HCO3 27.6 H (22-26) mmol/L ABG O2 Saturation 93 L (95-100) % ABG Base Excess 4 H ((-2)-(+3)) mmol/L Chris Test rb O2 Delivery Device Room air Oxygen Flow Rate 0 Sodium (136-145) mmol/L Potassium (3.5-5.1) mmol/L Chloride (98-107) mmol/L Carbon Dioxide (21-32) mmol/L Anion Gap (7-13) mEq/L BUN (7-18) mg/dL Creatinine (0.55-1.02) mg/dL Est Cr Clr Drug Dosing mL/min Estimated GFR (MDRD) Glucose (74-99) mg/dL Calcium (8.5-10.1) mg/dL Ammonia 63 H (11-32) umol/L 12/15/19 Range/Units 06:03 WBC (5.0-10.0) 10^3/uL RBC (4.2-5.4) 10^6/uL Hgb (12.0-16.0) g/dL Hct (37.0-47.0) % MCV (80-100) fL MCH (27.0-34.0) pg MCHC (33.0-35.0) g/dL Plt Count (150-450) 10^3/uL Neut % (Auto) (42.2-75.2) % Lymph % (Auto) (20.5-50.1) % [place] % (Auto) (2-8) % Eos % (Auto) (1.0-3.0) % Baso % (Auto) (0.0-1.0) % ABG pH (7.35-7.45) ABG pCO2 (35-45) mmHg ABG pO2 (70-100) mmHg ABG HCO3 (22-26) mmol/L ABG O2 Saturation (95-100) % ABG Base Excess ((-2)-(+3)) mmol/L Chris Test O2 Delivery Device Oxygen Flow Rate Sodium 138 (136-145) mmol/L Potassium 3.6 (3.5-5.1) mmol/L Chloride 103 (98-107) mmol/L Carbon Dioxide 27 (21-32) mmol/L Anion Gap 11.6 (7-13) mEq/L BUN 12 (7-18) mg/dL Creatinine 0.66 (0.55-1.02) mg/dL Est Cr Clr Drug Dosing 76.37 mL/min Estimated GFR (MDRD) > 60 Glucose 93 (74-99) mg/dL Calcium 8.4 L (8.5-10.1) mg/dL Ammonia (11-32) umol/L Christiano Results Last 24 Hours: Microbiology 12/12/19 19:54 Urine Culture - Preliminary Urine, Clean Catch Escherichia Coli Med Orders - Current: Current Medications Acetaminophen (Tylenol) 650 mg PO Q4H PRN PRN Reason: Pain (Mild 1-3)/fever Last Admin: 12/14/19 03:13 Dose: 650 mg Documented by: Albuterol/Ipratropium (Duoneb 3.0-0.5 Mg/3 Ml) 3 ml NEB Q2H PRN PRN Reason: sob Albuterol/Ipratropium (Duoneb 3.0-0.5 Mg/3 Ml) [address] [facility] Last Admin: 12/15/19 07:15 Dose: 3 ml Documented by: Aspirin (Halfprin) [address] [facility] Last Admin: 12/15/19 09:11 Dose: 81 mg Documented by: Atorvastatin Calcium (Lipitor) [address] [facility] Last Admin: 12/14/19 22:24 Dose: 40 mg Documented by: Ciprofloxacin (Ciprofloxacin Hcl) [address] [facility] Last Admin: 12/15/19 09:12 Dose: 250 mg Documented by: Clopidogrel Bisulfate (Plavix) [address] [facility] Last Admin: 12/15/19 09:11 Dose: 75 mg Documented by: Docusate Sodium (Colace) 100 mg PO BID PRN PRN Reason: Constipation Heparin Sodium (Porcine) (Heparin Sodium) 5,[address] [facility] Last Admin: 12/15/19 05:01 Dose: Not Given Documented by: Ibuprofen (Motrin) 400 mg PO Q4HR PRN PRN Reason: Pain Last Admin: 12/14/19 03:33 Dose: 400 mg Documented by: Lactulose (Cephulac) [address] [facility] Last Admin: 12/15/19 09:14 Dose: 20 gm Documented by: Levetiracetam (Keppra) [address] [facility] Last Admin: 12/15/19 09:12 Dose: 500 mg Documented by: Lisinopril (Prinivil) [address] [facility] Last Admin: 12/15/19 09:12 Dose: 10 mg Documented by: Ondansetron HCl (Zofran) 4 mg IVPUSH Q6H PRN PRN Reason: Nausea/Vomiting Phenytoin Sodium (Phenytoin) [address] [facility] Last Admin: 12/15/19 09:13 Dose: 200 mg Documented by: Phenytoin Sodium (Dilantin) 30 mg PO DAILY@1900 [facility] Last Admin: 12/14/19 18:06 Dose: 30 mg Documented by: Primidone (Mysoline) [address] [facility] Last Admin: 12/15/19 09:13 Dose: 500 mg Documented by: Sodium Chloride (Saline Flush) 10 ml FLUSH ASDIRECTED PRN PRN Reason: Keep Vein Open Last Admin: 12/14/19 22:17 Dose: 10 ml Documented by: Discontinued Medications Iopamidol (Isovue-300 (61%)) 100 ml IVPUSH ONETIME ONE Stop: 12/12/19 21:18 Lactulose (Cephulac) 15 gm PO ONETIME ONE Stop: 12/14/19 16:06 Last Admin: 12/14/19 17:36 Dose: 15 gm Documented by: Potassium Chloride (Klor-Con 10) 40 meq PO ONETIME ONE Stop: 12/13/19 01:02 Last Admin: 12/13/19 01:42 Dose: 40 meq Documented by: Potassium Chloride (Klor-Con 10) 40 meq PO ONETIME ONE Stop: 12/13/19 12:33 Last Admin: 12/13/19 14:05 Dose: 40 meq Documented by: - Exam General: Oriented (when waken up), Lethargic Neck: Supple Lungs: Clear to Auscultation, Normal Respiratory Effort Cardiovascular: Regular Rate, Regular Rhythm GI/Abdominal Exam: Normal Bowel Sounds, Soft, Non-Tender Extremities: No Pedal Edema Sepsis Event Note - Evaluation Sepsis Screening Result: No Definite Risk - Focused Exam Vital Signs: Vital Signs Temp Pulse Resp BP BP Pulse Ox Pulse Ox 12/15/19 09:12 134/75 12/15/19 08:00 98.2 F 72 20 134/75 100 12/15/19 07:15 93 12/15/19 02:00 98.5 F 70 20 162/69 H 96 12/15/19 01:00 70 96 12/14/19 22:00 98.6 F 70 20 140/68 96 96 - Problem List & Annotations (1) Shortness of breath SNOMED Code(s): 487316331 Code(s): R06.02 - SHORTNESS OF BREATH Status: Acute Current Visit: Yes (2) Coronary artery disease SNOMED Code(s): 06588656 Code(s): I25.10 - ATHSCL HEART DISEASE OF [place] CORONARY ARTERY W/O ANG PCTRS Status: Acute Current Visit: Yes (3) Hypertension SNOMED Code(s): 32732046 Code(s): I10 - ESSENTIAL (PRIMARY) HYPERTENSION Status: Acute Current Visit: Yes (4) Abdominal pain SNOMED Code(s): 57247518 Code(s): R10.9 - UNSPECIFIED ABDOMINAL PAIN Status: Acute Current Visit: No Qualifiers: Abdominal location: left lower quadrant Qualified Code(s): R10.32 - Left lower quadrant pain (5) Weakness SNOMED Code(s): 95543500 Code(s): R53.1 - WEAKNESS Status: Acute Current Visit: No - Problem List Review Problem List Initiated/Reviewed/Updated: Yes - My Orders Last 24 Hours: My Active Orders 12/14/19 09:43 PT Evaluation and Treatment [CONS] Routine 12/14/19 09:44 OT Evaluation and Treatment [CONS] Routine 12/14/19 11:45 Ciprofloxacin [Ciprofloxacin HCl] 250 mg PO BID 12/14/19 21:00 Lactulose [Cephulac] 20 gm PO TID 12/15/19 09:06 Admission Status [Patient Status] [ADT] Routine - Plan Plan:: 69-year-old lady with a history of hypertension, dyslipidemia, coronary artery disease status post bypass surgery, COPD, seizure disorder. The patient was recently hospitalized at [facility] with the abdominal pain. The patient was noted to have closed loop obstruction and underwent exploratory laparotomy and release of adhesions. She was off her seizure medications and noted to have a seizure. Subsequently Keppra 1000 mg twice a day was started. The patient presented with abdominal pain, shortness of breath but most importantly significant weakness. The patient is a fairly lethargic, cannot really give much history. She is opening her eyes and following commands but minimal interaction. Lethargy, weakness Likely related to new seizure medications The patient was recently started on Keppra 1000 mg twice a day She has been continued on phenytoin, primidone Doubt ongoing seizure activity cut down Keppra to 500 mg twice a day phenytoin level not elevated Will have physical and occupational therapy eval and treat ABG showed no co2 retention acute hepatitic encephalopathy Elevated ammonia level Start lactulose Recheck ammonia in the morning Hypertension Continue lisinopril uti urine culture showed E coli, sensitive to Cipro we will continue to treat with cipro Coronary artery disease Continue aspirin, statin, Plavix, Lisinopril Shortness of breath History of COPD Chest x-ray showed no pneumonia or CHF or pleural effusion Abnormal left hilar contour was partially imaged by CT, follow-up with outpatient full chest CT Will use scheduled and as needed nebulizers Recent small bowel obstruction, ischemic bowel CT describing nonspecific bowel pattern, mild mucosal thickening This is likely related to prior ischemic injury from recent closed loop obstruction tolerating diet Well monitor DVT prophylaxis with subcutaneous heparin
[2019-12-15] MEDS: atorvaSTATin 10 MG Tab PO SCH (22:15)
[2019-12-15] MEDS: Acetaminophen 325 MG Tab PO PRN (22:17)
[2019-12-15] MEDS: Phenytoin 30 MG Cap.ER PO SCH (22:22)
[2019-12-16] MEDS: Albuterol/Ipratropium 3.0-0.5 MG/3 ML Neb Soln NEB SCH ×4 (01:35→20:02)
[2019-12-16] MEDS: Ibuprofen 400 MG Tab PO PRN (01:35)
[2019-12-16] MEDS: Heparin Sodium 5,000 Units/ML Vial SUBCUT SCH ×3 (06:18→22:04)
[2019-12-16] MEDS: Aspirin 81 MG Tab.EC PO SCH (09:11)
[2019-12-16] MEDS: levETIRAcetam 500 MG Tab PO SCH ×2 (09:11→22:04)
[2019-12-16] MEDS: Lactulose Soln 10 GM/15 ML 30 ML UD Cup PO SCH ×3 (09:11→22:04)
[2019-12-16] MEDS: Clopidogrel 75 MG Tab PO SCH (09:11)
[2019-12-16] MEDS: Phenytoin 100 MG Cap.ER PO SCH ×2 (09:12→22:04)
[2019-12-16] MEDS: Ciprofloxacin 500 MG Tab PO SCH ×2 (09:12→22:04)
[2019-12-16] MEDS: Primidone 250 MG Tab PO SCH ×2 (09:13→22:04)
[2019-12-16] MEDS: Lisinopril 10 MG Tab PO SCH (09:13)
--- NOTE | 2019-12-16 13:41 | PCM.PN ---
- General Info Date of Service: 12/16/19 Admission Dx/Problem (Free Text): Admission Diagnosis/Problem Admission Diagnosis/Problem Weakness Subjective Update: Continues to be generally weak but appears much improved since admission. weakness started days prior to admission. No complains of pain, no headache, no seizure. No fever, no chills. No chest pain no abdominal pain, tolerating diet. she is alert, oriented, talking about elections communicative - Review of Systems General: Reports: Weakness (needed one person assist to get to chair). Denies: Fever Pulmonary: Denies: Shortness of Breath Cardiovascular: Denies: Chest Pain Gastrointestinal: Denies: Abdominal Pain Neurological: Reports: Weakness. Denies: Confusion - Patient Data Vitals - Most Recent: Last Vital Signs Temp 97.8 F 12/16/19 12:00 Pulse 73 12/16/19 12:00 Resp 18 12/16/19 12:00 BP 137/66 12/16/19 12:00 Pulse Ox 99 12/16/19 12:00 Weight - Most Recent: 158 lb I&O - Last 24 Hours: Intake & Output 12/15/19 12/16/19 12/16/19 22:59 06:59 14:59 Intake Total 200 Balance 200 Christiano Results Last 24 Hours: Microbiology 12/12/19 19:54 Urine Culture - Final Urine, Clean Catch Escherichia Coli Escherichia Coli#2 Med Orders - Current: Current Medications Acetaminophen (Tylenol) 650 mg PO Q4H PRN PRN Reason: Pain (Mild 1-3)/fever Last Admin: 12/15/19 22:17 Dose: 650 mg Documented by: Albuterol/Ipratropium (Duoneb 3.0-0.5 Mg/3 Ml) 3 ml NEB Q2H PRN PRN Reason: sob Albuterol/Ipratropium (Duoneb 3.0-0.5 Mg/3 Ml) 3 ml NEB Q6HRRT [facility] Last Admin: 12/16/19 07:53 Dose: 3 ml Documented by: Aspirin (Halfprin) 81 mg PO DAILY [facility] Last Admin: 12/16/19 09:11 Dose: 81 mg Documented by: Atorvastatin Calcium (Lipitor) 40 mg PO BEDTIME [facility] Last Admin: 12/15/19 22:15 Dose: 40 mg Documented by: Ciprofloxacin (Ciprofloxacin Hcl) 250 mg PO BID [facility] Last Admin: 12/16/19 09:12 Dose: 250 mg Documented by: Clopidogrel Bisulfate (Plavix) 75 mg PO DAILY [facility] Last Admin: 12/16/19 09:11 Dose: 75 mg Documented by: Docusate Sodium (Colace) 100 mg PO BID PRN PRN Reason: Constipation Heparin Sodium (Porcine) (Heparin Sodium) 5,000 units SUBCUT Q8HR [facility] Last Admin: 12/16/19 06:18 Dose: Not Given Documented by: Ibuprofen (Motrin) 400 mg PO Q4HR PRN PRN Reason: Pain Last Admin: 12/16/19 01:35 Dose: 400 mg Documented by: Lactulose (Cephulac) 20 gm PO TID [facility] Last Admin: 12/16/19 09:11 Dose: 20 gm Documented by: Levetiracetam (Keppra) 500 mg PO BID [facility] Last Admin: 12/16/19 09:11 Dose: 500 mg Documented by: Lisinopril (Prinivil) 10 mg PO DAILY [facility] Last Admin: 12/16/19 09:13 Dose: 10 mg Documented by: Ondansetron HCl (Zofran) 4 mg IVPUSH Q6H PRN PRN Reason: Nausea/Vomiting Phenytoin Sodium (Phenytoin) 200 mg PO BID [facility] Last Admin: 12/16/19 09:12 Dose: 200 mg Documented by: Phenytoin Sodium (Dilantin) 30 mg PO DAILY@1900 [facility] Last Admin: 12/15/19 22:22 Dose: 30 mg Documented by: Primidone (Mysoline) 500 mg PO BID [facility] Last Admin: 12/16/19 09:13 Dose: 500 mg Documented by: Sodium Chloride (Saline Flush) 10 ml FLUSH ASDIRECTED PRN PRN Reason: Keep Vein Open Last Admin: 12/14/19 22:17 Dose: 10 ml Documented by: Discontinued Medications Iopamidol (Isovue-300 (61%)) 100 ml IVPUSH ONETIME ONE Stop: 12/12/19 21:18 Lactulose (Cephulac) 15 gm PO ONETIME ONE Stop: 12/14/19 16:06 Last Admin: 12/14/19 17:36 Dose: 15 gm Documented by: Potassium Chloride (Klor-Con 10) 40 meq PO ONETIME ONE Stop: 12/13/19 01:02 Last Admin: 12/13/19 01:42 Dose: 40 meq Documented by: Potassium Chloride (Klor-Con 10) 40 meq PO ONETIME ONE Stop: 12/13/19 12:33 Last Admin: 12/13/19 14:05 Dose: 40 meq Documented by: - Exam General: Alert, Oriented Neck: Supple Lungs: Clear to Auscultation, Normal Respiratory Effort Cardiovascular: Regular Rate, Regular Rhythm GI/Abdominal Exam: Normal Bowel Sounds, Soft, Non-Tender Extremities: No Pedal Edema Sepsis Event Note - Evaluation Sepsis Screening Result: No Definite Risk - Focused Exam Vital Signs: Vital Signs Temp Pulse Resp BP BP Pulse Ox 12/16/19 12:00 97.8 F 73 18 137/66 99 12/16/19 09:13 129/62 12/16/19 08:30 98.1 F 72 20 129/62 94 L 12/16/19 07:53 70 12/16/19 04:00 98.3 F 70 16 122/55 L 98 - Problem List & Annotations (1) Shortness of breath SNOMED Code(s): 319646764 Code(s): R06.02 - SHORTNESS OF BREATH Status: Acute Current Visit: Yes (2) Coronary artery disease SNOMED Code(s): 17208540 Code(s): I25.10 - ATHSCL HEART DISEASE OF [place] CORONARY ARTERY W/O ANG PCTRS Status: Acute Current Visit: Yes (3) Hypertension SNOMED Code(s): 47765179 Code(s): I10 - ESSENTIAL (PRIMARY) HYPERTENSION Status: Acute Current Visit: Yes (4) Abdominal pain SNOMED Code(s): 95592107 Code(s): R10.9 - UNSPECIFIED ABDOMINAL PAIN Status: Acute Current Visit: No Qualifiers: Abdominal location: left lower quadrant Qualified Code(s): R10.32 - Left lower quadrant pain (5) Weakness SNOMED Code(s): 31348973 Code(s): R53.1 - WEAKNESS Status: Acute Current Visit: No - Problem List Review Problem List Initiated/Reviewed/Updated: Yes - My Orders Last 24 Hours: My Active Orders 12/15/19 18:52 Seizure Precautions [OM.PC] Routine 12/17/19 05:11 AMMONIA VENOUS [CHEM] AM - Plan Plan:: 69-year-old lady with a history of hypertension, dyslipidemia, coronary artery disease status post bypass surgery, COPD, seizure disorder. The patient was recently hospitalized at [facility] with the abdominal pain. The patient was noted to have closed loop obstruction and underwent exploratory laparotomy and release of adhesions. She was off her seizure medications and noted to have a seizure. Subsequently Keppra 1000 mg twice a day was started. The patient presented with abdominal pain, shortness of breath but most importantly significant weakness. The patient is a fairly lethargic, cannot really give much history. She is opening her eyes and following commands but minimal interaction. Lethargy, weakness Likely related to new seizure medications, acute hepatic encephalopathy The patient was recently started on Keppra 1000 mg twice a day She has been continued on phenytoin, primidone Doubt ongoing seizure activity I ave cut down Keppra to 500 mg twice a day phenytoin level not elevated ABG showed no co2 retention Will have physical and occupational therapy eval and treat acute hepatitic encephalopathy Elevated ammonia level Started lactulose Recheck ammonia in the morning Hypertension Continue lisinopril uti urine culture showed E coli, sensitive to Cipro we will continue to treat with cipro Coronary artery disease Continue aspirin, statin, Plavix, Lisinopril Shortness of breath History of COPD Chest x-ray showed no pneumonia or CHF or pleural effusion Abnormal left hilar contour was partially imaged by CT, follow-up with [facility] nt full chest CT Will use scheduled and as needed nebulizers Recent small bowel obstruction, ischemic bowel CT describing nonspecific bowel pattern, mild mucosal thickening This is likely related to prior ischemic injury from recent closed loop obstruction tolerating diet Well monitor DVT prophylaxis with subcutaneous heparin
[2019-12-16] MEDS: Phenytoin 30 MG Cap.ER PO SCH (20:10)
[2019-12-16] MEDS: atorvaSTATin 10 MG Tab PO SCH (22:04)
[2019-12-17] MEDS: Albuterol/Ipratropium 3.0-0.5 MG/3 ML Neb Soln NEB SCH ×2 (01:03→08:01)
[2019-12-17] MEDS: Heparin Sodium 5,000 Units/ML Vial SUBCUT SCH (06:04)
[2019-12-17] MEDS: Ciprofloxacin 500 MG Tab PO SCH (09:05)
[2019-12-17] MEDS: Aspirin 81 MG Tab.EC PO SCH (09:05)
[2019-12-17] MEDS: levETIRAcetam 500 MG Tab PO SCH (09:05)
[2019-12-17] MEDS: Clopidogrel 75 MG Tab PO SCH (09:05)
[2019-12-17] MEDS: Phenytoin 100 MG Cap.ER PO SCH (09:05)
[2019-12-17] MEDS: Primidone 250 MG Tab PO SCH (09:05)
[2019-12-17] MEDS: Lactulose Soln 10 GM/15 ML 30 ML UD Cup PO SCH (09:07)
[2019-12-17] MEDS: Lisinopril 10 MG Tab PO SCH (09:07)
--- NOTE | 2019-12-17 10:28 | PCM.DCSUM1 ---
Discharge Summary - Hospital Course Free Text/Narrative:: 69-year-old lady with a history of hypertension, dyslipidemia, coronary artery disease status post bypass surgery, COPD, seizure disorder. The patient was recently hospitalized at [facility] with the abdominal pain. The patient was noted to have closed loop obstruction and underwent exploratory laparotomy and release of adhesions. She was off her seizure medications and noted to have a seizure. Subsequently Keppra 1000 mg twice a day was started. The patient presented with abdominal pain, shortness of breath but most importantly significant weakness. The patient is a fairly lethargic, cannot really give much history. She is opening her eyes and following commands but minimal interaction. Lethargy, weakness Likely related to new seizure medications, acute hepatic encephalopathy The patient was recently started on Keppra 1000 mg twice a day She has been continued on phenytoin, primidone Doubt ongoing seizure activity I have cut down Keppra to 500 mg twice a day phenytoin level was not elevated ABG showed no co2 retention acute hepatitic encephalopathy Elevated ammonia level Started lactulose ammonia improved Hypertension Continue lisinopril uti urine culture showed E coli, sensitive to Cipro we will continue to treat with cipro Coronary artery disease Continue aspirin, statin, Plavix, Lisinopril Shortness of breath History of COPD Chest x-ray showed no pneumonia or CHF or pleural effusion Abnormal left hilar contour was partially imaged by CT, consider follow-up with outpatient full chest CT Recent small bowel obstruction, ischemic bowel CT describing nonspecific bowel pattern, mild mucosal thickening This is likely related to prior ischemic injury from recent closed loop obstruction tolerating diet - Discharge Data Discharge Date: 12/17/19 Discharge Disposition: Home, Self-Care 01 Condition: Fair - Referral to Home Health Primary Care Physician: PCP None - Discharge Diagnosis/Problem(s) (1) Shortness of breath SNOMED Code(s): 583337041 ICD Code: R06.02 - SHORTNESS OF BREATH Status: Acute Current Visit: Yes (2) Coronary artery disease SNOMED Code(s): 65810682 ICD Code: I25.10 - ATHSCL HEART DISEASE OF [place] CORONARY ARTERY W/O ANG PCTRS Status: Acute Current Visit: Yes (3) Hypertension SNOMED Code(s): 87729631 ICD Code: I10 - ESSENTIAL (PRIMARY) HYPERTENSION Status: Acute Current Visit: Yes (4) Abdominal pain SNOMED Code(s): 69346076 ICD Code: R10.9 - UNSPECIFIED ABDOMINAL PAIN Status: Acute Current Visit: No Qualifiers: Abdominal location: left lower quadrant Qualified Code(s): R10.32 - Left lower quadrant pain (5) Weakness SNOMED Code(s): 70698070 ICD Code: R53.1 - WEAKNESS Status: Acute Current Visit: No - Patient Summary/Data Consults: Consultations 12/14/19 09:43 PT Evaluation and Treatment [CONS] Routine 12/14/19 09:44 OT Evaluation and Treatment [CONS] Routine - Patient Instructions Diet: Heart Healthy Diet Activity: As Tolerated - Discharge Plan *PRESCRIPTION DRUG MONITORING PROGRAM REVIEWED*: Not Applicable *COPY OF PRESCRIPTION DRUG MONITORING REPORT IN PATIENT LENORE: Not Applicable Prescriptions/Med Rec: Lactulose [Cephulac] 20 gm PO TID #1000 gm Ciprofloxacin [Ciprofloxacin HCl] 250 mg PO BID #6 tablet levETIRAcetam [Keppra] 500 mg PO BID #60 tablet Home Medications: Home Meds Aspirin [Ecotrin EC] 81 mg PO DAILY 10/04/13 [History] Cholecalciferol (Vitamin D3) [Vitamin D3] 1,000 units PO DAILY 10/04/13 [History] Clopidogrel Bisulfate [Clopidogrel] 75 mg PO DAILY 10/04/13 [History] Lisinopril 10 mg PO DAILY 10/04/13 [History] Phenytoin Sodium Extended 200 mg PO BID 10/04/13 [History] Primidone 500 mg PO BID 10/04/13 [History] atorvaSTATin Calcium [Atorvastatin Calcium] 40 mg PO BEDTIME 05/09/16 [History] Ibuprofen [Ibu] 400 mg PO Q4HR PRN 09/18/17 [History] Naproxen [Naprosyn] 500 mg PO Q12HR 09/18/17 [History] Phenytoin [Dilantin] 30 mg PO BEDTIME 09/18/17 [History] Alendronate Sodium [Fosamax] 70 mg PO WEEKLY 12/13/19 [History] Ciprofloxacin [Ciprofloxacin HCl] 250 mg PO BID #6 tablet 12/17/19 [Rx] Lactulose [Cephulac] 20 gm PO TID #1000 gm 12/17/19 [Rx] levETIRAcetam [Keppra] 500 mg PO BID #60 tablet 12/17/19 [Rx] Patient Handouts: Hepatic Encephalopathy, Fatigue Referrals: Aminah Zapata NP [Ordering Only Provider] - - Discharge Summary/Plan Comment DC Time >30 min.: No - General Info Date of Service: 12/17/19 Admission Dx/Problem (Free Text: Admission Diagnosis/Problem Admission Diagnosis/Problem Weakness Functional Status: Reports: Pain Controlled - Review of Systems General: Reports: Weakness. Denies: Fever Pulmonary: Denies: Shortness of Breath Cardiovascular: Denies: Chest Pain Gastrointestinal: Denies: Abdominal Pain Neurological: Denies: Confusion - Patient Data Vitals - Most Recent: Last Vital Signs Temp 96.5 F L 12/17/19 08:25 Pulse 64 12/17/19 08:25 Resp 20 12/17/19 08:25 BP 139/60 12/17/19 09:07 Pulse Ox 97 12/17/19 08:25 Weight - Most Recent: 158 lb I&O - Last 24 hours: Intake & Output 12/16/19 12/17/19 12/17/19 22:59 06:59 14:59 Intake Total 330 Balance 330 Lab Results - Last 24 hrs: Laboratory Results - last 24 hr 12/17/19 Range/Units 06:23 Ammonia 14 (11-32) umol/L EARL Results - Last 24 hrs: Microbiology 12/12/19 19:54 Urine Culture - Final Urine, Clean Catch Escherichia Coli Escherichia Coli#2 Med Orders - Current: Current Medications Acetaminophen (Tylenol) 650 mg PO Q4H PRN PRN Reason: Pain (Mild 1-3)/fever Last Admin: 12/15/19 22:17 Dose: 650 mg Documented by: Albuterol/Ipratropium (Duoneb 3.0-0.5 Mg/3 Ml) 3 ml NEB Q2H PRN PRN Reason: sob Albuterol/Ipratropium (Duoneb 3.0-0.5 Mg/3 Ml) 3 ml NEB Q6HRRT [facility] Last Admin: 12/17/19 08:01 Dose: 3 ml Documented by: Aspirin (Halfprin) 81 mg PO DAILY [facility] Last Admin: 12/17/19 09:05 Dose: 81 mg Documented by: Atorvastatin Calcium (Lipitor) 40 mg PO BEDTIME [facility] Last Admin: 12/16/19 22:04 Dose: 40 mg Documented by: Ciprofloxacin (Ciprofloxacin Hcl) 250 mg PO BID [facility] Last Admin: 12/17/19 09:05 Dose: 250 mg Documented by: Clopidogrel Bisulfate (Plavix) 75 mg PO DAILY [facility] Last Admin: 12/17/19 09:05 Dose: 75 mg Documented by: Docusate Sodium (Colace) 100 mg PO BID PRN PRN Reason: Constipation Heparin Sodium (Porcine) (Heparin Sodium) 5,000 units SUBCUT Q8HR [facility] Last Admin: 12/17/19 06:04 Dose: 5,000 units Documented by: Ibuprofen (Motrin) 400 mg PO Q4HR PRN PRN Reason: Pain Last Admin: 12/16/19 01:35 Dose: 400 mg Documented by: Lactulose (Cephulac) 20 gm PO TID [facility] Last Admin: 12/17/19 09:07 Dose: 20 gm Documented by: Levetiracetam (Keppra) 500 mg PO BID [facility] Last Admin: 12/17/19 09:05 Dose: 500 mg Documented by: Lisinopril (Prinivil) 10 mg PO DAILY [facility] Last Admin: 12/17/19 09:07 Dose: 10 mg Documented by: Ondansetron HCl (Zofran) 4 mg IVPUSH Q6H PRN PRN Reason: Nausea/Vomiting Phenytoin Sodium (Phenytoin) 200 mg PO BID [facility] Last Admin: 12/17/19 09:05 Dose: 200 mg Documented by: Phenytoin Sodium (Dilantin) 30 mg PO DAILY@1900 [facility] Last Admin: 12/16/19 20:10 Dose: 30 mg Documented by: Primidone (Mysoline) 500 mg PO BID [facility] Last Admin: 12/17/19 09:05 Dose: 500 mg Documented by: Sodium Chloride (Saline Flush) 10 ml FLUSH ASDIRECTED PRN PRN Reason: Keep Vein Open Last Admin: 12/14/19 22:17 Dose: 10 ml Documented by: Discontinued Medications Iopamidol (Isovue-300 (61%)) 100 ml IVPUSH ONETIME ONE Stop: 12/12/19 21:18 Lactulose (Cephulac) 15 gm PO ONETIME ONE Stop: 12/14/19 16:06 Last Admin: 12/14/19 17:36 Dose: 15 gm Documented by: Potassium Chloride (Klor-Con 10) 40 meq PO ONETIME ONE Stop: 11/05/20 01:02 Last Admin: 12/13/19 01:42 Dose: 40 meq Documented by: Potassium Chloride (Klor-Con 10) 40 meq PO ONETIME ONE Stop: 12/13/19 12:33 Last Admin: 12/13/19 14:05 Dose: 40 meq Documented by: - Exam Quality Assessment: Denies: Supplemental Oxygen General: Reports: Alert, Oriented Neck: Reports: Supple Lungs: Reports: Clear to Auscultation, Normal Respiratory Effort Cardiovascular: Reports: Regular Rate, Regular Rhythm GI/Abdominal Exam: Normal Bowel Sounds, Soft, Non-Tender Psy/Mental Status: Reports: Alert, Normal Affect, Normal Mood
[2019-12-17 13:09] VITALS: BP 136/62; PULSE 66
== END 2019-12-17 12:30 | disposition home or self-care (01) | DRG 442 ==
LOC: DL.ED 18:15 → DL.MS 23:51 → OBSVTOIN 12-15 09:06
PROVIDERS: ADMIT Internal Medicine; ATTEND Internal Medicine
DX: K72.00 Acute and subacute hepatic failure without coma (principal); Z90.49 Acquired absence of other specified parts of digestive tract; N39.0 Urinary tract infection, site not specified; H91.90 Unspecified hearing loss, unspecified ear; I25.10 Atherosclerotic heart disease of native coronary artery without angina pectoris; K56.609 Unspecified intestinal obstruction, unspecified as to partial versus complete obstruction; G40.909 Epilepsy, unspecified, not intractable, without status epilepticus; R53.1 Weakness; J44.9 Chronic obstructive pulmonary disease, unspecified; I10 Essential (primary) hypertension; Z85.3 Personal history of malignant neoplasm of breast; E78.5 Hyperlipidemia, unspecified; R10.9 Unspecified abdominal pain; B96.20 Unspecified Escherichia coli [E. coli] as the cause of diseases classified elsewhere; H54.7 Unspecified visual loss; I25.119 Atherosclerotic heart disease of native coronary artery with unspecified angina pectoris; E78.00 Pure hypercholesterolemia, unspecified; M19.90 Unspecified osteoarthritis, unspecified site; D64.9 Anemia, unspecified; Z20.828 Contact with and (suspected) exposure to other viral communicable diseases; Z79.899 Other long term (current) drug therapy; Z79.82 Long term (current) use of aspirin; Z79.02 Long term (current) use of antithrombotics/antiplatelets; Z87.891 Personal history of nicotine dependence; Z95.1 Presence of aortocoronary bypass graft; Z88.8 Allergy status to other drugs, medicaments and biological substances
CPT/HCPCS: 36415 ×4; 36600; 71045; 74176; 80048 ×3; 80053; 80185; 80305; 81001; 82140; 82803; 83605; 84484; 85025 ×4; 86140; 87086; 87088; 87186 ×2; 93005; 94640 ×9; 97162; 97166; 99285; A9270 ×25; J1644 ×7; U0002; 96372; 97530-GO; G0378; J7620-GY

== ENCOUNTER 2020-04-06 15:05 | Emergency (ER) | payer MEDICARE, OTHER ==
--- NOTE | 2020-04-06 16:16 | CR ---
PROCEDURE INFORMATION: Exam: XR Chest Exam date and time: 04/06/2020 3:52 PM Age: 69 years old Clinical indication: Other: Chest pain TECHNIQUE: Imaging protocol: XR of the chest Views: 1 view. COMPARISON: CR Chest 1V Frontal 12/12/2019 7:14 PM FINDINGS: Lungs: Patchy infiltrates in the left lung. Linear atelectasis vs scarring in the left lower lung field. Pleural spaces: Unremarkable. No pleural effusion. No pneumothorax. Heart/Mediastinum: Unremarkable. No cardiomegaly. Bones/joints: sternotomy. IMPRESSION: Patchy infiltrates in the left lung. Linear atelectasis vs scarring in the left lower lung field.
[2020-04-06 16:23] LABS: ANION GAP 11.9 mEq/L (7-13); CHLORIDE,CL 105 mmol/L (98-107); SODIUM,NA 140 mmol/L (136-145)
[2020-04-06] MEDS ORDERED: Pantoprazole 40 MG Vial IVPUSH ONE (17:03)
[2020-04-06] MEDS ORDERED: Sodium Chloride 0.9% 500 ML IV SCH (17:15)
[2020-04-06] MEDS ORDERED: Piperacillin/Tazobactam 3.375 GM in Sodium Chloride 0.9% 100 ML IV ONE (17:33)
[2020-04-06 17:53] VITALS: BP 113/68; PULSE 69
--- NOTE | 2020-04-06 18:21 | EDM.PDOC ---
Scribed by Betty Rosado 04/06/20 [id number] for Peace Dumont NP ED HPI GENERAL MEDICAL PROBLEM - General Chief Complaint: Chest Pain Stated Complaint: UPPER CHEST PAIN, LEGS SWOLLEN Time Seen by Provider: 04/06/20 16:22 Source of Information: Reports: Patient, RN, RN Notes Reviewed History Limitations: Reports: No Limitations - History of Present Illness INITIAL COMMENTS - FREE TEXT/NARRATIVE: Patient is a 69-year-old female who presents to ER with complaint of chest pain that began 4-5 days ago. States she has increased sleepiness. Patient is a very historian. Patient has a history of a PE in January and sent to [facility]. She was discharged home on Eliquis and is taking it. Onset: Gradual Duration: Getting Worse Location: Reports: Generalized Quality: Reports: Ache Severity: Severe Improves with: Reports: None Worsens with: Reports: None Associated Symptoms: Reports: No Other Symptoms - Related Data Allergies Allergy/AdvReac Type Severity Reaction Status Date / Time atenolol Allergy Cannot Verified 12/12/19 18:36 Remember Home Meds: Home Meds Aspirin [Ecotrin EC] 81 mg PO DAILY 10/04/13 [History] Cholecalciferol (Vitamin D3) [Vitamin D3] 1,000 units PO DAILY 10/04/13 [History] Clopidogrel Bisulfate [Clopidogrel] 75 mg PO DAILY 10/04/13 [History] Lisinopril 10 mg PO DAILY 10/04/13 [History] Phenytoin Sodium Extended 200 mg PO BID 10/04/13 [History] Primidone 500 mg PO BID 10/04/13 [History] atorvaSTATin Calcium [Atorvastatin Calcium] 40 mg PO BEDTIME 05/09/16 [History] Ibuprofen [Ibu] 400 mg PO Q4HR PRN 09/18/17 [History] Naproxen [Naprosyn] 500 mg PO Q12HR 09/18/17 [History] Phenytoin [Dilantin] 30 mg PO BEDTIME 09/18/17 [History] Alendronate Sodium [Fosamax] 70 mg PO WEEKLY 12/13/19 [History] Ciprofloxacin [Ciprofloxacin HCl] 250 mg PO BID #6 tablet 12/17/19 [Rx] Lactulose [Cephulac] 20 gm PO TID #1000 gm 12/17/19 [Rx] levETIRAcetam [Keppra] 500 mg PO BID #60 tablet 12/17/19 [Rx] Past Medical History HEENT History: Reports: Hard of Hearing, Impaired Vision Other HEENT History: wears glasses Cardiovascular History: Reports: Angina, Bypass, CAD, High Cholesterol, Hypertension Respiratory History: Reports: Bronchitis, Recurrent, PE Gastrointestinal History: Reports: None Other Gastrointestinal History: Recent surg. to abd. 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: Reports: 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 Uterine Bleeding, Musculoskeletal History: Reports: Arthritis Neurological History: Reports: Seizure, Other (See Below) (epilepsy) Psychiatric History: Reports: None Endocrine/Metabolic History: Reports: None Hematologic History: Reports: None, Anemia, Blood Transfusion(s) Immunologic History: Reports: None Oncologic (Cancer) History: Reports: Breast Dermatologic History: Reports: None - Infectious Disease History Infectious Disease History: Reports: Chicken Pox, Mumps - Past Surgical History Head Surgeries/Procedures: Reports: None HEENT Surgical History: Reports: None Other Cardiovascular Surgeries/Procedures: bypass unsure of stents Respiratory Surgical History: Reports: None Neurological Surgical History: Reports: None Oncologic Surgical History: Reports: Biopsy of Breast Social & Family History - Family History Family Medical History: No Pertinent Family History Cardiac: Reports: Other (See Below) Other Cardiac Family History: "heart problems" - Tobacco Use Tobacco Use Status *Q: Current Every Day Tobacco User Years of Tobacco use: 1 Packs/Tins Daily: 50 Used Tobacco, but Quit: No Second Hand Smoke Exposure: Yes - Caffeine Use Caffeine Use: Reports: Coffee - Recreational Drug Use Recreational Drug Use: No - Living Situation & Occupation Living situation: Reports: with Family Occupation: Retired ED ROS GENERAL - Review of Systems Review Of Systems: Comprehensive ROS is negative, except as noted in HPI. ED EXAM, GENERAL - Physical Exam Exam: See Below Exam Limited By: No Limitations General Appearance: Other (lethargic and pallor) Eye Exam: Bilateral Eye: Other (puffy eyelids) Ears: Normal External Exam, Normal Canal, Hearing Grossly Normal, Normal TMs Nose: Normal Inspection, Normal Mucosa, No Blood Throat/Mouth: Normal Inspection, Normal Lips, Normal Teeth, Normal Gums, Normal Oropharynx, Normal Voice, No Airway Compromise Head: Atraumatic, Normocephalic Neck: Normal Inspection, Supple, Non-Tender, Full Range of Motion Respiratory/Chest: Decreased Breath Sounds Cardiovascular: Normal Peripheral Pulses, Regular Rate, Rhythm, No Edema, No Gallop, No JVD, No Murmur, No Rub GI/Abdominal: Normal Bowel Sounds, Soft, Non-Tender, No Organomegaly, No Distention, No Abnormal Bruit, No Mass (Female) Exam: Deferred Rectal (Female) Exam: Heme + Stool Back Exam: Normal Inspection, Full Range of Motion, NT Extremities: Normal Inspection, Normal Range of Motion, Non-Tender, Normal Capillary Refill, No Pedal Edema Neurological: Alert, Oriented, CN II-XII Intact, Normal Cognition, Normal Gait, Normal Reflexes, No Motor/Sensory Deficits Psychiatric: Normal Affect, Normal Mood Skin Exam: Pallor Lymphatic: No Adenopathy Course - Vital Signs Last Recorded V/S: Last Vital Signs Temp 98.1 F 04/06/20 17:39 Pulse 69 04/06/20 17:39 Resp 16 04/06/20 17:39 BP 113/68 04/06/20 17:39 Pulse Ox 93 L 04/06/20 17:39 - Orders/Labs/Meds Labs: Laboratory Tests 04/06/20 04/06/20 04/06/20 Range/Units 15:56 15:56 15:56 WBC 3.5 L (5.0-10.0) 10^3/uL RBC 1.49 L (4.2-5.4) 10^6/uL Hgb 4.7 L* D (12.0-16.0) g/dL Hct 16.1 L* (37.0-47.0) % MCV 108.1 H D (80-100) fL MCH 31.5 (27.0-34.0) pg MCHC 29.2 L (33.0-35.0) g/dL Plt Count 371 (150-450) 10^3/uL Neut % (Auto) 66.3 (42.2-75.2) % Lymph % (Auto) 23.9 (20.5-50.1) % [place] % (Auto) 7.2 (2-8) % Eos % (Auto) 2.0 (1.0-3.0) % Baso % (Auto) 0.6 (0.0-1.0) % D-Dimer, Quantitative < 100 (0-400) ng/mL Sodium 140 (136-145) mmol/L Potassium 3.9 (3.5-5.1) mmol/L Chloride 105 (98-107) mmol/L Carbon Dioxide 27 (21-32) mmol/L Anion Gap 11.9 (7-13) mEq/L BUN 16 (7-18) mg/dL Creatinine 0.69 (0.55-1.02) mg/dL Est Cr Clr Drug Dosing 67.38 mL/min Estimated GFR (MDRD) > 60 BUN/Creatinine Ratio 23.2 (No establ ref range) Glucose 109 H (74-99) mg/dL Calcium 7.8 L (8.5-10.1) mg/dL Total Bilirubin 0.1 L (0.2-1.0) mg/dL AST 12 L (15-37) U/L ALT 21 (14-59) U/L Alkaline Phosphatase 103 (46-116) U/L Troponin I 0.466 H* (0.000-0.056) ng/mL Total Protein 5.0 L (6.4-8.2) g/dL Albumin 2.4 L (3.4-5.0) g/dL Globulin 2.6 Albumin/Globulin Ratio 0.92 SARS CoV-2 RNA Rapid APURVA (NEGATIVE) Blood Type Gel Antibody Screen Crossmatch 04/06/20 04/06/20 04/06/20 Range/Units 15:56 16:52 17:05 WBC (5.0-10.0) 10^3/uL RBC (4.2-5.4) 10^6/uL Hgb 4.6 L* (12.0-16.0) g/dL Hct (37.0-47.0) % MCV (80-100) fL MCH (27.0-34.0) pg MCHC (33.0-35.0) g/dL Plt Count (150-450) 10^3/uL Neut % (Auto) (42.2-75.2) % Lymph % (Auto) (20.5-50.1) % [place] % (Auto) (2-8) % Eos % (Auto) (1.0-3.0) % Baso % (Auto) (0.0-1.0) % D-Dimer, Quantitative (0-400) ng/mL Sodium (136-145) mmol/L Potassium (3.5-5.1) mmol/L Chloride (98-107) mmol/L Carbon Dioxide (21-32) mmol/L Anion Gap (7-13) mEq/L BUN (7-18) mg/dL Creatinine (0.55-1.02) mg/dL Est Cr Clr Drug Dosing mL/min Estimated GFR (MDRD) BUN/Creatinine Ratio (No establ ref range) Glucose (74-99) mg/dL Calcium (8.5-10.1) mg/dL Total Bilirubin (0.2-1.0) mg/dL AST (15-37) U/L ALT (14-59) U/L Alkaline Phosphatase (46-116) U/L Troponin I (0.000-0.056) ng/mL Total Protein (6.4-8.2) g/dL Albumin (3.4-5.0) g/dL Globulin Albumin/Globulin Ratio SARS CoV-2 RNA Rapid APURVA Negative (NEGATIVE) Blood Type O POSITIVE Gel Antibody Screen Negative Crossmatch See Detail Meds: Medications Discontinued Medications Generic Name Dose Route Start Last Admin Trade Name Freq PRN Reason Stop Dose Admin Sodium Chloride 500 mls @ 999 mls/hr 04/06/20 17:15 Normal Saline IV .BOLUS TRES Piperacillin Sod/Tazobactam 100 mls @ 200 mls/hr 04/06/20 17:33 04/06/20 17:37 Sod 3.375 gm/ Sodium Chloride IV 04/06/20 18:02 200 mls/hr ONETIME ONE Administration Pantoprazole Sodium 40 mg 04/06/20 17:03 04/06/20 17:22 Protonix Iv IVPUSH 04/06/20 17:04 40 mg ONETIME ONE Administration - Radiology Interpretation Free Text/Narrative:: Chest x-ray: Chest x-ray. PROCEDURE INFORMATION: Exam: XR Chest Exam date and time: 04/06/2020 3:52 PM Age: 69 years old Clinical indication: Other: Chest pain TECHNIQUE: Imaging protocol: XR of the chest Views: 1 view. COMPARISON: CR Chest 1V Frontal 12/12/2019 7:14 PM FINDINGS: Lungs: Patchy infiltrates in the left lung. Linear atelectasis vs scarring in the left lower lung field. Pleural spaces: Unremarkable. No pleural effusion. No pneumothorax. Heart/Mediastinum: Unremarkable. No cardiomegaly. Bones/joints: sternotomy. IMPRESSION: Patchy infiltrates in the left lung. Linear atelectasis vs scarring in the left lower lung field. Thank you for allowing us to participate in the care of your patient. See rad report. - Re-Assessments/Exams Free Text/Narrative Re-Assessment/Exam: 04/06/20 18:18 Discussed patient case with Dr. Caruso who agreed to accept the patient for transfer to [facility]. Patient will be transferred via [facility] fixed wing. Departure - Departure Time of Disposition: 18:05 Disposition: DC/Tfer to Acute Hospital 02 Condition: Serious Clinical Impression: NSTEMI (non-ST elevated myocardial infarction) GI bleed Qualifiers: GI bleed type/associated pathology: unspecified gastrointestinal hemorrhage type Qualified Code(s): K92.2 - Gastrointestinal hemorrhage, unspecified - Discharge Information *PRESCRIPTION DRUG MONITORING PROGRAM REVIEWED*: No *COPY OF PRESCRIPTION DRUG MONITORING REPORT IN PATIENT LENORE: No Referrals: PCP,None [Primary Care Provider] - Forms: ED Department Discharge, Interfacility Transfer [facility] Sepsis Event Note (ED) - Evaluation Sepsis Screening Result: No Definite Risk - Focused Exam Vital Signs: Vital Signs Temp Temp Pulse Resp BP Pulse Ox 04/06/20 17:39 98.1 F 69 16 113/68 93 L 04/06/20 17:22 97.6 F 97 18 112/69 97 04/06/20 17:21 97.4 F 85 18 112/69 97 04/06/20 15:28 98.0 F 65 16 96/51 L 99 I have read and agree with the documentation that has been completed regarding this visit. By signing this record, I attest that the documentation was completed in my physical presence and is an accurate record of the encounter.
== END 2020-04-06 18:09 ==
LOC: DL.ED 15:05
DX: I21.4 Non-ST elevation (NSTEMI) myocardial infarction (principal); K92.2 Gastrointestinal hemorrhage, unspecified; I25.10 Atherosclerotic heart disease of native coronary artery without angina pectoris; E78.00 Pure hypercholesterolemia, unspecified; I10 Essential (primary) hypertension; M19.90 Unspecified osteoarthritis, unspecified site; R56.9 Unspecified convulsions; Z88.8 Allergy status to other drugs, medicaments and biological substances; Z95.1 Presence of aortocoronary bypass graft; Z79.82 Long term (current) use of aspirin; Z79.02 Long term (current) use of antithrombotics/antiplatelets; Z72.0 Tobacco use; Z20.822 Contact with and (suspected) exposure to COVID-19
CPT/HCPCS: 36415; 36430; 71045; 80053; 82272; 84484; 85018; 85025; 85379; 86850; 86900; 86901; 86920; 86922; 93005; 96374; 96375; 99284; 99285; C9113; J2543; P9016; U0002

== ENCOUNTER 2020-04-14 01:27 | Emergency (ER) | payer MEDICARE, OTHER ==
[2020-04-14 01:36] VITALS: BP 126/65; PULSE 71
--- NOTE | 2020-04-14 02:09 | EDM.PDOC ---
ED HPI GENERAL MEDICAL PROBLEM - General Chief Complaint: Neurological Problem Stated Complaint: AMBULANCE Time Seen by Provider: 04/14/20 01:45 Source of Information: Reports: Patient, EMS, RN History Limitations: Reports: No Limitations - History of Present Illness INITIAL COMMENTS - FREE TEXT/NARRATIVE: ED via [facility] with report of seizure, lasting one minute. states sitting watching tv and sitting by friend who noticed it then called her daughter. Alert on arrival to ED. Known hx of seizures, reports previous one year ago. Recent hospitalization for GI bleed. States taking medications as prescribed - Related Data Allergies Allergy/AdvReac Type Severity Reaction Status Date / Time atenolol Allergy Cannot Verified 04/14/20 01:36 Remember Home Meds: Home Meds Aspirin [Ecotrin EC] 81 mg PO DAILY 10/04/13 [History] Cholecalciferol (Vitamin D3) [Vitamin D3] 1,000 units PO DAILY 10/04/13 [History] Clopidogrel Bisulfate [Clopidogrel] 75 mg PO DAILY 10/04/13 [History] Lisinopril 10 mg PO DAILY 10/04/13 [History] Phenytoin Sodium Extended 200 mg PO BID 10/04/13 [History] Primidone 500 mg PO BID 10/04/13 [History] atorvaSTATin Calcium [Atorvastatin Calcium] 40 mg PO BEDTIME 05/09/16 [History] Ibuprofen [Ibu] 400 mg PO Q4HR PRN 09/18/17 [History] Naproxen [Naprosyn] 500 mg PO Q12HR 09/18/17 [History] Phenytoin [Dilantin] 30 mg PO BEDTIME 09/18/17 [History] Alendronate Sodium [Fosamax] 70 mg PO WEEKLY 12/13/19 [History] Ciprofloxacin [Ciprofloxacin HCl] 250 mg PO BID #6 tablet 12/17/19 [Rx] Lactulose [Cephulac] 20 gm PO TID #1000 gm 12/17/19 [Rx] levETIRAcetam [Keppra] 500 mg PO BID #60 tablet 12/17/19 [Rx] Past Medical History HEENT History: Reports: Hard of Hearing, Impaired Vision Other HEENT History: wears glasses Cardiovascular History: Reports: Angina, Bypass, CAD, High Cholesterol, Hypertension Respiratory History: Reports: Bronchitis, Recurrent Gastrointestinal History: Reports: None Other Gastrointestinal History: Recent surg. to abd. Genitourinary History: Reports: None DIP FILLER History: Reports: 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 Uterine Bleeding, Musculoskeletal History: Reports: Arthritis Neurological History: Reports: Seizure Psychiatric History: Reports: None Endocrine/Metabolic History: Reports: None Hematologic History: Reports: Anemia, Blood Transfusion(s) Immunologic History: Reports: None Oncologic (Cancer) History: Reports: Breast Dermatologic History: Reports: None - Infectious Disease History Infectious Disease History: Reports: Chicken Pox, Mumps - Past Surgical History Head Surgeries/Procedures: Reports: None HEENT Surgical History: Reports: None Other Cardiovascular Surgeries/Procedures: bypass unsure of stents Respiratory Surgical History: Reports: None GI Surgical History: Reports: Colonoscopy Neurological Surgical History: Reports: None Oncologic Surgical History: Reports: Biopsy of Breast Social & Family History - Family History Family Medical History: No Pertinent Family History Cardiac: Reports: Other (See Below) Other Cardiac Family History: "heart problems" - Tobacco Use Tobacco Use Status *Q: Never Tobacco User Second Hand Smoke Exposure: No - Caffeine Use Caffeine Use: Reports: Coffee - Recreational Drug Use Recreational Drug Use: No - Living Situation & Occupation Living situation: Reports: with Family Occupation: Retired ED ROS GENERAL - Review of Systems Review Of Systems: Comprehensive ROS is negative, except as noted in HPI. - Physical Exam Exam: See Below Exam Limited By: No Limitations General Appearance: Alert, No Apparent Distress Eye Exam: Bilateral Eye: EOMI Ears: Normal External Exam, Hearing Grossly Normal Throat/Mouth: Normal Inspection Head Exam: Atraumatic, Normocephalic Neck: Full Range of Motion Respiratory/Chest: No Respiratory Distress, Lungs Clear, Normal Breath Sounds Cardiovascular: Normal Peripheral Pulses, Regular Rate, Rhythm GI/Abdominal: Normal Bowel Sounds, Soft, Non-Tender Neuro Exam (Abbreviated): Alert, Oriented, Normal Cognition. No: Disoriented, Slow to Respond Extremities: Pedal Edema (left LE greater than right) Psychiatric: Normal Affect Skin Exam: Warm, Other (vitilligo) Course - Vital Signs Last Recorded V/S: Last Vital Signs Temp 99.2 F 04/14/20 01:29 Pulse 71 04/14/20 01:29 Resp 18 04/14/20 01:29 BP 126/65 04/14/20 01:29 Pulse Ox 93 L 04/14/20 01:29 - Orders/Labs/Meds Labs: Laboratory Tests 04/14/20 04/14/20 04/14/20 Range/Units 02:10 02:10 02:10 WBC 3.8 L (5.0-10.0) 10^3/uL RBC 3.34 L (4.2-5.4) 10^6/uL Hgb 10.1 L D (12.0-16.0) g/dL Hct 32.3 L (37.0-47.0) % MCV 96.7 D (80-100) fL MCH 30.2 (27.0-34.0) pg MCHC 31.3 L (33.0-35.0) g/dL Plt Count 362 (150-450) 10^3/uL Neut % (Auto) 60.9 (42.2-75.2) % Lymph % (Auto) 15.4 L (20.5-50.1) % Cannon % (Auto) 19.1 H (2-8) % Eos % (Auto) 4.3 H (1.0-3.0) % Baso % (Auto) 0.3 (0.0-1.0) % PT (9.0-12.0) SEC INR (0.9-1.2) Sodium 144 (136-145) mmol/L Potassium 3.7 (3.5-5.1) mmol/L Chloride 106 (98-107) mmol/L Carbon Dioxide 27 (21-32) mmol/L Anion Gap 14.7 H (7-13) mEq/L BUN 10 (7-18) mg/dL Creatinine 0.86 (0.55-1.02) mg/dL Est Cr Clr Drug Dosing 54.06 mL/min Estimated GFR (MDRD) > 60 BUN/Creatinine Ratio 11.6 (No establ ref range) Glucose 92 (74-99) mg/dL Calcium 7.7 L (8.5-10.1) mg/dL Total Bilirubin 0.1 L (0.2-1.0) mg/dL AST 11 L (15-37) U/L ALT 14 (14-59) U/L Alkaline Phosphatase 92 (46-116) U/L Total Protein 5.3 L (6.4-8.2) g/dL Albumin 2.3 L (3.4-5.0) g/dL Globulin 3.0 Albumin/Globulin Ratio 0.77 Phenytoin 3 L (10-20 (Therapeutic)) ug/mL 04/14/20 Range/Units 02:10 WBC (5.0-10.0) 10^3/uL RBC (4.2-5.4) 10^6/uL Hgb (12.0-16.0) g/dL Hct (37.0-47.0) % MCV (80-100) fL MCH (27.0-34.0) pg MCHC (33.0-35.0) g/dL Plt Count (150-450) 10^3/uL Neut % (Auto) (42.2-75.2) % Lymph % (Auto) (20.5-50.1) % Cannon % (Auto) (2-8) % Eos % (Auto) (1.0-3.0) % Baso % (Auto) (0.0-1.0) % PT 9.9 (9.0-12.0) SEC INR 1.0 (0.9-1.2) Sodium (136-145) mmol/L Potassium (3.5-5.1) mmol/L Chloride (98-107) mmol/L Carbon Dioxide (21-32) mmol/L Anion Gap (7-13) mEq/L BUN (7-18) mg/dL Creatinine (0.55-1.02) mg/dL Est Cr Clr Drug Dosing mL/min Estimated GFR (MDRD) BUN/Creatinine Ratio (No establ ref range) Glucose (74-99) mg/dL Calcium (8.5-10.1) mg/dL Total Bilirubin (0.2-1.0) mg/dL AST (15-37) U/L ALT (14-59) U/L Alkaline Phosphatase (46-116) U/L Total Protein (6.4-8.2) g/dL Albumin (3.4-5.0) g/dL Globulin Albumin/Globulin Ratio Phenytoin (10-20 (Therapeutic)) ug/mL Meds: Medications Discontinued Medications Generic Name Dose Route Start Last Admin Trade Name Freq PRN Reason Stop Dose Admin Phenytoin Sodium 200 mg 04/14/20 03:22 04/14/20 03:28 Phenytoin PO 04/14/20 03:23 200 mg ONETIME ONE Administration Departure - Departure Time of Disposition: 03:24 Disposition: Home, Self-Care 01 Condition: Good Clinical Impression: Seizure, Subtherapeutic serum dilantin level - Discharge Information *PRESCRIPTION DRUG MONITORING PROGRAM REVIEWED*: No *COPY OF PRESCRIPTION DRUG MONITORING REPORT IN PATIENT LENORE: No Instructions: Seizure, Adult, [id number] Forms: ED Department Discharge Additional Instructions: clinic follow up this week recheck dilantin levels take seizure medications as prescribed follow up as needed Sepsis Event Note (ED) - Evaluation Sepsis Screening Result: No Definite Risk - Focused Exam Vital Signs: Vital Signs Temp Pulse Resp BP Pulse Ox 04/14/20 01:29 99.2 F 71 18 126/65 93 L
[2020-04-14 02:34] LABS: ANION GAP 14.7 mEq/L (7-13); CHLORIDE,CL 106 mmol/L (98-107); SODIUM,NA 144 mmol/L (136-145)
--- NOTE | 2020-04-14 03:09 | CT ---
PROCEDURE INFORMATION: Exam: CT Head Without Contrast Exam date and time: 04/14/2020 2:52 AM Age: 69 years old Clinical indication: Other: Seizure; Additional info: Breakthrough seizure TECHNIQUE: Imaging protocol: Computed tomography of the head without contrast. Radiation optimization: All CT scans at this facility use at least one of these dose optimization techniques: automated exposure control; mA and/or kV adjustment per patient size (includes targeted exams where dose is matched to clinical indication); or iterative reconstruction. COMPARISON: CT Head wo Cont 09/18/2017 10:15 PM FINDINGS: Brain: There is mild diffuse cerebral atrophy present, consistent with this patient's age. There is patchy low attenuation in the white matter of both cerebral hemispheres which is a nonspecific finding but most likely secondary to mild chronic microvascular ischemic disease. Again seen are remote lacunar infarcts in the bilateral basal ganglia. No evidence definite acute ischemia. There is low attenuation in the bilateral occipital lobes, for example on images 6:12-14, which is most likely secondary to artifact. No hemorrhage. Cerebral ventricles: No ventriculomegaly. Bones/joints: Unremarkable. No acute fracture. Paranasal sinuses: Visualized sinuses are unremarkable. No fluid levels. Mastoid air cells: There are fluid opacified right mastoid air cells. Auditory system: There is fluid in the right middle ear cavity. Vasculature: Calcified atherosclerosis of the intracranial ICAs and vertebrobasilar circulation. Soft tissues: Unremarkable. IMPRESSION: 1. No acute intracranial abnormality. 2. Fluid opacified right mastoid air cells and middle ear cavity suggesting otomastoiditis. 3. Non-acute findings are described above.
[2020-04-14] MEDS ORDERED: Phenytoin 100 MG Cap.ER PO ONE (03:22)
== END 2020-04-14 04:18 | disposition home or self-care (01) ==
LOC: DL.ED 01:27
DX: R56.9 Unspecified convulsions (principal); R79.1 Abnormal coagulation profile; I25.10 Atherosclerotic heart disease of native coronary artery without angina pectoris; E78.00 Pure hypercholesterolemia, unspecified; I10 Essential (primary) hypertension; M19.90 Unspecified osteoarthritis, unspecified site; Z88.8 Allergy status to other drugs, medicaments and biological substances; Z79.82 Long term (current) use of aspirin; Z79.899 Other long term (current) drug therapy
CPT/HCPCS: 36415; 70450; 80053; 80185; 85025; 85610; 99283; 99285; A9270

== ENCOUNTER 2021-11-19 17:40 | Emergency (ER) | payer MEDICARE, OTHER ==
[2021-11-19] MEDS ORDERED: Naloxone 2 MG/2 ML Syringe IV ONE (18:10)
[2021-11-19] MEDS ORDERED: levETIRAcetam in NaCl (iso-os) 100 ML IV ONE (19:45)
[2021-11-19] MEDS ORDERED: cefTRIAXone 2 GM Vial IV ONE (19:45)
[2021-12-14 11:14] LABS: ANION GAP 12.5 mEq/L (7-13); CHLORIDE,CL 104 mmol/L (98-107); ESTIMATED GFR 59 mL/min (>=60); SODIUM,NA 141 mmol/L (136-145)
== END 2021-11-19 20:42 | disposition home or self-care (01) ==
LOC: DL.ED 17:40
DX: G40.909 Epilepsy, unspecified, not intractable, without status epilepticus (principal); N39.0 Urinary tract infection, site not specified; Z91.14 Patient's other noncompliance with medication regimen; Z20.822 Contact with and (suspected) exposure to COVID-19
CPT/HCPCS: 36415; 70450; 80053; 80185; 80307; 81001; 83605; 84443; 85025; 86140; 87086; 96365; 96375; 99285; U0002; J0696; J1953; J2310

== ENCOUNTER 2022-03-07 21:09 | Emergency (ER) | payer MEDICARE, OTHER ==
[2022-03-07 21:50] VITALS: BP 220/91; PULSE 65
[2022-03-07 22:06] LABS: ANION GAP 12.3 mEq/L (7-13)
[2022-03-07] MEDS ORDERED: Nitrofurantoin Monohydrate/Macrocrystalline 100 MG Cap PO ONE (22:48)
[2022-03-07 23:41] LABS: CORONAVIRUS COVID-19 NAA NEGATIVE (NEGATIVE)
== END 2022-03-07 23:57 | disposition home or self-care (01) ==
LOC: DL.ED 21:09
DX: N39.0 Urinary tract infection, site not specified (principal); K52.9 Noninfective gastroenteritis and colitis, unspecified; I25.10 Atherosclerotic heart disease of native coronary artery without angina pectoris; E78.00 Pure hypercholesterolemia, unspecified; I10 Essential (primary) hypertension; Z88.8 Allergy status to other drugs, medicaments and biological substances; Z79.82 Long term (current) use of aspirin; Z79.02 Long term (current) use of antithrombotics/antiplatelets; Z79.899 Other long term (current) drug therapy; Z95.1 Presence of aortocoronary bypass graft; Z20.822 Contact with and (suspected) exposure to COVID-19
CPT/HCPCS: 0240U; 36415; 80053; 81001; 83605; 85025; 87040; 87086; 99284; A9270

== ENCOUNTER 2022-03-19 03:24 | Emergency (ER) | payer MEDICARE, OTHER ==
[2022-03-19] MEDS ORDERED: Magnesium Hydroxide 400 MG/5 ML Susp 30 ML Cup PO ONE (03:25)
[2022-03-19] MEDS ORDERED: Sodium Chloride 0.9% 10 ML Syringe FLUSH PRN (03:26)
[2022-03-19 03:28] VITALS: BP 174/70; PULSE 63
[2022-03-19 03:48] LABS: ANION GAP 11.8 mEq/L (7-13); CHLORIDE,CL 103 mmol/L (98-107); SODIUM,NA 141 mmol/L (136-145)
[2022-03-19 03:56] LABS: ESTIMATED GFR 65 mL/min (>=60)
[2022-03-19 04:44] LABS: AMPHETAMINES,URINE NEGATIVE (NEGATIVE); BARBITURATES,URINE POSITIVE (NEGATIVE); BENZODIAZEPINE,URINE NEGATIVE (NEGATIVE); MDMA (ECSTASY), URINE NEGATIVE (NEGATIVE); METHADONE,URINE NEGATIVE (NEGATIVE); METHAMPHETAMINES,URINE NEGATIVE (NEGATIVE); OPIATES,URINE NEGATIVE (NEGATIVE); OXYCODONE,URINE NEGATIVE (NEGATIVE); PHENCYCLIDINE,URINE NEGATIVE (NEGATIVE); TCA,URINE NEGATIVE (NEGATIVE)
[2022-03-19] MEDS ORDERED: Magnesium Hydroxide 400 MG/5 ML Susp 30 ML Cup ONE (05:13)
== END 2022-03-19 07:10 | disposition home or self-care (01) ==
LOC: DL.ED 03:24
DX: K59.00 Constipation, unspecified (principal); I25.10 Atherosclerotic heart disease of native coronary artery without angina pectoris; E78.00 Pure hypercholesterolemia, unspecified; I10 Essential (primary) hypertension; Z88.8 Allergy status to other drugs, medicaments and biological substances; Z95.1 Presence of aortocoronary bypass graft; Z79.01 Long term (current) use of anticoagulants; Z79.02 Long term (current) use of antithrombotics/antiplatelets; Z79.899 Other long term (current) drug therapy
CPT/HCPCS: 36415; 74018; 80053; 80185; 80305-QW; 81001; 82140; 82150; 83605; 83690; 83735; 85025; 86140; 87086; 99284; A9270-GY; C1758; J3490

== ENCOUNTER 2022-07-17 23:30 | Emergency (ER) | payer MEDICARE, OTHER ==
[2022-07-17] MEDS ORDERED: Albuterol/Ipratropium 3.0-0.5 MG/3 ML Neb Soln NEB ONE (23:55)
[2022-07-18 00:27] LABS: APPEARANCE,URINE CLOUDY (CLEAR); BILIRUBIN,URINE NEGATIVE (NEGATIVE); COLOR,URINE YELLOW (YELLOW); GLUCOSE,URINE NEGATIVE (NEGATIVE); KETONES,URINE TRACE (NEGATIVE); LEUKOCYTE ESTERASE,URINE TRACE (NEGATIVE); NITRITE,URINE NEGATIVE (NEGATIVE); OCCULT BLOOD,URINE NEGATIVE (NEGATIVE); PROTEIN,URINE 100 (NEGATIVE); UROBILINOGEN,URINE 0.2 mg/dL (0.2-1.0)
[2022-07-18] MEDS ORDERED: Azithromycin 250 MG Tab PO ONE (00:37)
[2022-07-18] MEDS ORDERED: Amoxicillin/Clavulanate K 875-125 MG Tab PO ONE (00:37)
[2022-07-18 00:43] LABS: AMORPHOUS SEDIMENT,URINE MODERATE /HPF (NOT SEEN); EPITHELIAL CELLS,URINE MODERATE /HPF (NOT SEEN); MUCUS,URINE FEW /LPF (NOT SEEN); RBC,URINE 0-5 /HPF (0-5)
[2022-07-18 00:44] LABS: BACTERIA,URINE MANY /HPF (0-FEW/HPF)
[2022-07-18] MEDS ORDERED: Albuterol 6.7 GM Inhaler INH ONE (00:56)
[2022-07-18] MEDS ORDERED: Take Home: Azithromycin 250 MG, 2 Tab Pack PO ONE (00:58)
[2022-07-18] MEDS ORDERED: Take Home: Amoxicillin/Clavulanate K 875-125 MG Tab, 6 Tab Pack PO ONE (00:58)
[2022-07-18 01:28] VITALS: BP 125/61; PULSE 60
== END 2022-07-18 01:19 | disposition home or self-care (01) ==
LOC: DL.ED 23:30
DX: J18.9 Pneumonia, unspecified organism (principal); N30.00 Acute cystitis without hematuria; I25.10 Atherosclerotic heart disease of native coronary artery without angina pectoris; E78.00 Pure hypercholesterolemia, unspecified; I10 Essential (primary) hypertension; M19.90 Unspecified osteoarthritis, unspecified site; F17.210 Nicotine dependence, cigarettes, uncomplicated; Z79.82 Long term (current) use of aspirin; Z79.899 Other long term (current) drug therapy; Z88.8 Allergy status to other drugs, medicaments and biological substances; Z20.822 Contact with and (suspected) exposure to COVID-19
CPT/HCPCS: 71045; 81001; 87086; 87804; 94640; 99284; 99285; A9270-GY; J7620-GY; U0002

== ENCOUNTER 2023-06-28 23:20 | Emergency (ER) | payer MEDICARE, OTHER ==
[2023-06-28] MEDS: Sodium Chloride 0.9% 1,000 ML IV ONE (23:30)
[2023-06-28 23:32] LABS: BASOPHILS PERCENT AUTO 0.3 % (0.0-1.0); EOSINOPHILS PERCENT AUTO 1.1 % (1.0-3.0); HEMATOCRIT 40.5 % (37.0-47.0); LYMPHOCYTES PERCENT AUTO 18.1 % (20.5-50.1); MEAN CORPUSCULAR HEMOGLOBIN 31.1 pg (27.0-34.0); MEAN CORPUSCULAR HGB CONC 32.1 g/dL (33.0-35.0); MEAN CORPUSCULAR VOLUME 96.9 fL (80-100); MONOCYTES PERCENT AUTO 8.1 % (2-8); NEUTROPHILS PERCENT AUTO 72.4 % (42.2-75.2); PLATELET COUNT,PLT 341 10^3/uL (150-450); RED BLOOD CELL COUNT 4.18 10^6/uL (4.2-5.4); WHITE BLOOD CELL COUNT,WBC 6.5 10^3/uL (5.0-10.0)
[2023-06-28 23:48] LABS: ALANINE AMINOTRANSFERASE,ALT 16 U/L (14-59); ALBUMIN 2.5 g/dL (3.4-5.0); ALKALINE PHOSPHATASE 100 U/L (46-116); ANION GAP 10.2 mEq/L (7-13); ASPARTATE AMNIOTRANSFERASE,AST 14 U/L (15-37); BILIRUBIN TOTAL 0.1 mg/dL (0.2-1.0); BLOOD UREA NITROGEN,BUN 15 mg/dL (7-18); BUN/CREATININE RATIO 13.9 (No establ ref range); CALCIUM 8.7 mg/dL (8.5-10.1); CARBON DIOXIDE,CO2 31 mmol/L (21-32); CHLORIDE,CL 105 mmol/L (98-107); CREATININE 1.08 mg/dL (0.55-1.02); GLUCOSE RANDOM 108 mg/dL (70-99); MAGNESIUM 2.3 mg/dL (1.8-2.4); POTASSIUM,K 4.2 mmol/L (3.5-5.1); SODIUM,NA 142 mmol/L (136-145)
[2023-06-28 23:49] LABS: A/G RATIO 0.56; ESTIMATED GFR 55 mL/min (>=60)
[2023-06-28 23:53] LABS: PROTHROMBIN TIME 10.1 SEC (9.0-12.0)
[2023-06-29 00:18] LABS: APPEARANCE,URINE SLIGHTLY CLOUDY (CLEAR); BILIRUBIN,URINE NEGATIVE (NEGATIVE); COLOR,URINE YELLOW (YELLOW); GLUCOSE,URINE NEGATIVE (NEGATIVE); KETONES,URINE NEGATIVE (NEGATIVE); LEUKOCYTE ESTERASE,URINE SMALL (NEGATIVE); NITRITE,URINE POSITIVE (NEGATIVE); OCCULT BLOOD,URINE SMALL (NEGATIVE); PH,URINE 7.5 (5.0-9.0); PROTEIN,URINE 100 (NEGATIVE); UROBILINOGEN,URINE 0.2 mg/dL (0.2-1.0)
[2023-06-29 00:26] LABS: BACTERIA,URINE MANY /HPF (0-FEW/HPF); EPITHELIAL CELLS,URINE FEW /HPF (NOT SEEN); WBC,URINE >100 /HPF (0-5/HPF)
[2023-06-29] MEDS: Iopamidol 755 Mg/ML 100 ML Bottle IVPUSH ONE (00:54)
[2023-06-29] MEDS: cefTRIAXone 1 GM Vial IVPUSH ONE (01:11)
[2023-06-29 02:42] VITALS: BP 139/78; PULSE 67
== END 2023-06-29 03:12 ==
LOC: DL.ED 23:20
DX: R41.82 Altered mental status, unspecified (principal); N39.0 Urinary tract infection, site not specified; I10 Essential (primary) hypertension; E78.00 Pure hypercholesterolemia, unspecified; I25.10 Atherosclerotic heart disease of native coronary artery without angina pectoris; M19.90 Unspecified osteoarthritis, unspecified site; Z88.8 Allergy status to other drugs, medicaments and biological substances; Z79.82 Long term (current) use of aspirin; Z79.899 Other long term (current) drug therapy
CPT/HCPCS: 36415; 70450; 71275; 80053; 81001; 82550; 83735; 85025; 85379; 85610; 87086; 87088; 87186; 96361; 96374; 99285; 99285-25; C1758; J0696; J7030; Q9967

== ENCOUNTER 2023-11-17 18:14 | Observation (INO) | payer MEDICARE, OTHER ==
[2023-11-17] MEDS: Sodium Chloride 0.9% 1,000 ML IV ONE ×2 (18:58→21:08)
[2023-11-17 19:00] LABS: BASOPHILS PERCENT AUTO 0.2 % (0.0-1.0); EOSINOPHILS PERCENT AUTO 1.6 % (1.0-3.0); HEMATOCRIT 45.1 % (37.0-47.0); HEMOGLOBIN 14.7 g/dL (12.0-16.0); LYMPHOCYTES PERCENT AUTO 23.8 % (20.5-50.1); MEAN CORPUSCULAR HEMOGLOBIN 30.6 pg (27.0-34.0); MEAN CORPUSCULAR HGB CONC 32.6 g/dL (33.0-35.0); MONOCYTES PERCENT AUTO 5.8 % (2-8); NEUTROPHILS PERCENT AUTO 68.6 % (42.2-75.2); PLATELET COUNT,PLT 280 10^3/uL (150-450); WHITE BLOOD CELL COUNT,WBC 5.7 10^3/uL (5.0-10.0)
[2023-11-17 19:04] LABS: O2 DELIVERY DEVICE NASAL CANNULA
[2023-11-17 19:06] LABS: BASE EXCESS VENOUS 2.4 mmol/l ((-2)-(+3)); BICARBONATE,VENOUS 29 mmol/l (19-25); O2 SATURATION VENOUS 49.5 % (60-80); PCO2 VENOUS 53 mmHg (41-51); PH,VENOUS 7.35 (7.31-7.41); PO2 VENOUS 32 mmHg (35-42)
[2023-11-17 19:25] LABS: ALANINE AMINOTRANSFERASE,ALT 26 U/L (14-59); ALBUMIN 3.3 g/dL (3.4-5.0); ALKALINE PHOSPHATASE 128 U/L (46-116); ANION GAP 14.4 mEq/L (7-13); ASPARTATE AMNIOTRANSFERASE,AST 34 U/L (15-37); BILIRUBIN TOTAL 0.4 mg/dL (0.2-1.0); BLOOD UREA NITROGEN,BUN 15 mg/dL (7-18); BUN/CREATININE RATIO 15.6 (No establ ref range); CALCIUM 9.1 mg/dL (8.5-10.1); CARBON DIOXIDE,CO2 29 mmol/L (21-32); CHLORIDE,CL 103 mmol/L (98-107); CREATININE 0.96 mg/dL (0.55-1.02); GLUCOSE RANDOM 97 mg/dL (70-99); LIPASE 121 U/L (16-77); MAGNESIUM 2.2 mg/dL (1.8-2.4); PROTEIN TOTAL,TP 7.2 g/dL (6.4-8.2); SODIUM,NA 141 mmol/L (136-145)
[2023-11-17 19:26] LABS: A/G RATIO 0.85; B-TYPE NATRIURETIC PEPTIDE,BNP 102 pg/ml (0-100); ESTIMATED GFR 63 mL/min (>=60); ETHANOL BLOOD MEDICAL < 3 mg/dL (0); LACTIC ACID 1.1 mmol/L (0.4-2.0)
[2023-11-17 19:34] LABS: POTASSIUM,K 5.4 mmol/L (3.5-5.1)
[2023-11-17 20:47] LABS: A/G RATIO 0.83; ALANINE AMINOTRANSFERASE,ALT 20 U/L (14-59); ALKALINE PHOSPHATASE 120 U/L (46-116); ANION GAP 13.6 mEq/L (7-13); ASPARTATE AMNIOTRANSFERASE,AST 24 U/L (15-37); BILIRUBIN TOTAL 0.2 mg/dL (0.2-1.0); BLOOD UREA NITROGEN,BUN 15 mg/dL (7-18); BUN/CREATININE RATIO 16.1 (No establ ref range); CALCIUM 8.9 mg/dL (8.5-10.1); CARBON DIOXIDE,CO2 27 mmol/L (21-32); CHLORIDE,CL 105 mmol/L (98-107); CREATININE 0.93 mg/dL (0.55-1.02); ESTIMATED GFR 65 mL/min (>=60); GLUCOSE RANDOM 86 mg/dL (70-99); POTASSIUM,K 4.6 mmol/L (3.5-5.1); PROTEIN TOTAL,TP 6.6 g/dL (6.4-8.2); SODIUM,NA 141 mmol/L (136-145)
[2023-11-17 21:20] LABS: APPEARANCE,URINE SLIGHTLY CLOUDY (CLEAR); BILIRUBIN,URINE NEGATIVE (NEGATIVE); COLOR,URINE YELLOW (YELLOW); GLUCOSE,URINE NEGATIVE (NEGATIVE); KETONES,URINE NEGATIVE (NEGATIVE); LEUKOCYTE ESTERASE,URINE LARGE (NEGATIVE); NITRITE,URINE POSITIVE (NEGATIVE); OCCULT BLOOD,URINE TRACE-INTACT (NEGATIVE); PROTEIN,URINE NEGATIVE (NEGATIVE); UROBILINOGEN,URINE 0.2 mg/dL (0.2-1.0)
[2023-11-17] MEDS: cefTRIAXone 1 GM Vial IVPUSH ONE (21:21)
[2023-11-17] MEDS: Albuterol/Ipratropium 3.0-0.5 MG/3 ML Neb Soln NEB ONE (21:21)
[2023-11-17] MEDS: Dexamethasone 4 MG/ML SDV IVPUSH ONE (21:21)
[2023-11-17 21:40] LABS: BACTERIA,URINE MANY /HPF (0-FEW/HPF); RBC,URINE 0-5 /HPF (0-5)
[2023-11-17 21:41] LABS: EPITHELIAL CELLS,URINE FEW /HPF (NOT SEEN)
[2023-11-17] MEDS ORDERED: Albuterol/Ipratropium 3.0-0.5 MG/3 ML Neb Soln NEB PRN (22:44)
[2023-11-17] MEDS ORDERED: Bisacodyl 5 MG Tab PO PRN (22:44)
[2023-11-17] MEDS ORDERED: Melatonin 3 MG Tab PO PRN (22:44)
[2023-11-17] MEDS ORDERED: Docusate Sodium 100 MG Cap PO PRN (22:44)
[2023-11-17] MEDS ORDERED: Ondansetron 4 MG/2 ML SDV IVPUSH PRN (22:44)
[2023-11-17] MEDS: Sodium Chloride 0.9% 1,000 ML IV SCH (23:16)
[2023-11-17] MEDS: Azithromycin 500 MG in Sodium Chloride 0.9% 250 ML IV ONE (23:16)
[2023-11-18 06:42] LABS: HEMATOCRIT 39.5 % (37.0-47.0); MEAN CORPUSCULAR HGB CONC 32.9 g/dL (33.0-35.0); RED BLOOD CELL COUNT 4.2 10^6/uL (4.2-5.4); WHITE BLOOD CELL COUNT,WBC 6.8 10^3/uL (5.0-10.0)
[2023-11-18 06:45] LABS: ANION GAP 15.1 mEq/L (7-13); CALCIUM 8.4 mg/dL (8.5-10.1); CREATININE 0.76 mg/dL (0.55-1.02); EST CRCL DRUG DOSING (CG) 57.78 mL/min; POTASSIUM,K 4.1 mmol/L (3.5-5.1)
[2023-11-18] MEDS: Enoxaparin 40 MG/0.4 ML Syringe SUBCUT SCH (09:42)
[2023-11-18] MEDS: Aspirin 81 MG Tab.EC PO SCH (09:42)
[2023-11-18] MEDS: Cholecalciferol (Vitamin D3) 25 MCG Tab PO SCH (09:46)
[2023-11-18] MEDS: Azithromycin 250 MG Tab PO SCH (09:49)
[2023-11-18] MEDS: Lisinopril 10 MG Tab PO SCH (09:50)
[2023-11-18] MEDS: cefTRIAXone 1 GM Vial IVPUSH SCH (10:02)
[2023-11-18] MEDS: levETIRAcetam 500 MG Tab PO SCH (11:41)
[2023-11-18] MEDS: atorvaSTATin 20 MG Tab PO SCH (20:35)
[2023-11-18] MEDS: Phenytoin 100 MG Cap.ER PO SCH (20:37)
[2023-11-19 06:30] LABS: HEMOGLOBIN 11.8 g/dL (12.0-16.0); MEAN CORPUSCULAR HEMOGLOBIN 31.1 pg (27.0-34.0); MEAN CORPUSCULAR HGB CONC 32.8 g/dL (33.0-35.0); MEAN CORPUSCULAR VOLUME 94.7 fL (80-100); RED BLOOD CELL COUNT 3.8 10^6/uL (4.2-5.4); WHITE BLOOD CELL COUNT,WBC 3.1 10^3/uL (5.0-10.0)
[2023-11-19 07:46] LABS: CALCIUM 8.4 mg/dL (8.5-10.1); CREATININE 0.73 mg/dL (0.55-1.02); EST CRCL DRUG DOSING (CG) 60.15 mL/min
[2023-11-19] MEDS: Primidone 250 MG Tab PO SCH (08:29)
[2023-11-19] MEDS: Acetaminophen 325 MG Tab PO PRN (08:30)
[2023-11-19 17:05] VITALS: BP 145/75; PULSE 68
== END 2023-11-19 16:50 | disposition home or self-care (01) ==
LOC: DL.ED 18:14 → DL.MS 21:19
PROVIDERS: ADMIT Internal Medicine; ATTEND Internal Medicine
DX: E86.0 Dehydration (principal); I10 Essential (primary) hypertension; J06.9 Acute upper respiratory infection, unspecified; N39.0 Urinary tract infection, site not specified; I25.2 Old myocardial infarction; R09.89 Other specified symptoms and signs involving the circulatory and respiratory systems; M06.9 Rheumatoid arthritis, unspecified; R41.82 Altered mental status, unspecified; E11.9 Type 2 diabetes mellitus without complications; E78.00 Pure hypercholesterolemia, unspecified; I25.119 Atherosclerotic heart disease of native coronary artery with unspecified angina pectoris; D64.9 Anemia, unspecified; F17.200 Nicotine dependence, unspecified, uncomplicated; Z79.82 Long term (current) use of aspirin; Z79.899 Other long term (current) drug therapy; Z95.1 Presence of aortocoronary bypass graft
CPT/HCPCS: 36415; 70450; 71045; 80048; 80053; 80185; 80307; 81001; 82140; 82272; 82803; 83605; 83690; 83735; 83880; 84484; 85025; 85027; 87040; 87086; 87088; 87186; 87804; 93005; 93010; 94640; 96361; 96365; 96372; 96374; 96375; 96376; 99223; 99232; 99239; 99285; 99285-25; A9270-GY; C1758; G0378; J0456; J0696; J1100; J1650; J7030; J7050; J7620-GY; U0002

== ENCOUNTER 2024-01-29 18:05 | Emergency (ER) | payer MEDICARE, OTHER ==
[2024-01-29] MEDS ORDERED: Sodium Chloride 0.9% 10 ML Syringe FLUSH PRN (18:19)
[2024-01-29 18:36] LABS: BASOPHILS PERCENT AUTO 0.2 % (0.0-1.0); EOSINOPHILS PERCENT AUTO 1.2 % (1.0-3.0); HEMATOCRIT 41.2 % (37.0-47.0); HEMOGLOBIN 13.6 g/dL (12.0-16.0); LYMPHOCYTES PERCENT AUTO 15.5 % (20.5-50.1); MEAN CORPUSCULAR HEMOGLOBIN 32.2 pg (27.0-34.0); MEAN CORPUSCULAR VOLUME 97.6 fL (80-100); MONOCYTES PERCENT AUTO 5.7 % (2-8); NEUTROPHILS PERCENT AUTO 77.4 % (42.2-75.2); PLATELET COUNT,PLT 300 10^3/uL (150-450); RED BLOOD CELL COUNT 4.22 10^6/uL (4.2-5.4); WHITE BLOOD CELL COUNT,WBC 5.7 10^3/uL (5.0-10.0)
[2024-01-29 19:01] LABS: LACTIC ACID 1.7 mmol/L (0.4-2.0)
[2024-01-29 19:06] LABS: ALANINE AMINOTRANSFERASE,ALT 18 U/L (14-59); ALBUMIN 3.2 g/dL (3.4-5.0); ALKALINE PHOSPHATASE 87 U/L (46-116); ANION GAP 12.3 mEq/L (7-13); ASPARTATE AMNIOTRANSFERASE,AST 19 U/L (15-37); BILIRUBIN TOTAL 0.2 mg/dL (0.2-1.0); BLOOD UREA NITROGEN,BUN 15 mg/dL (7-18); CALCIUM 8.6 mg/dL (8.5-10.1); CARBON DIOXIDE,CO2 30 mmol/L (21-32); CHLORIDE,CL 100 mmol/L (98-107); CREATININE 0.88 mg/dL (0.55-1.02); GLUCOSE RANDOM 117 mg/dL (70-99); POTASSIUM,K 3.3 mmol/L (3.5-5.1); PROTEIN TOTAL,TP 6.2 g/dL (6.4-8.2); SODIUM,NA 139 mmol/L (136-145); TSH ULTRASENSITIVE 1.32 uIU/mL (0.36-3.74)
[2024-01-29 19:07] LABS: A/G RATIO 1.07; ESTIMATED GFR 70 mL/min (>=60)
[2024-01-29 19:25] LABS: APPEARANCE,URINE TURBID (CLEAR); BILIRUBIN,URINE NEGATIVE (NEGATIVE); COLOR,URINE YELLOW (YELLOW); GLUCOSE,URINE NEGATIVE (NEGATIVE); KETONES,URINE TRACE (NEGATIVE); LEUKOCYTE ESTERASE,URINE SMALL (NEGATIVE); NITRITE,URINE NEGATIVE (NEGATIVE); OCCULT BLOOD,URINE MODERATE (NEGATIVE); PROTEIN,URINE >=300 (NEGATIVE); UROBILINOGEN,URINE 0.2 mg/dL (0.2-1.0)
[2024-01-29 19:37] LABS: AMORPHOUS SEDIMENT,URINE MODERATE /HPF (NOT SEEN); BACTERIA,URINE MODERATE /HPF (0-FEW/HPF); EPITHELIAL CELLS,URINE FEW /HPF (NOT SEEN); HYALINE CASTS,URINE FEW; WBC,URINE 75-100 /HPF (0-5/HPF)
[2024-01-29 21:59] VITALS: BP 117/59; PULSE 60
== END 2024-01-29 21:54 | disposition home or self-care (01) ==
LOC: DL.ED 18:05
DX: L89.152 Pressure ulcer of sacral region, stage 2 (principal); K64.4 Residual hemorrhoidal skin tags; R55 Syncope and collapse; R15.9 Full incontinence of feces; F17.210 Nicotine dependence, cigarettes, uncomplicated; I10 Essential (primary) hypertension; I25.10 Atherosclerotic heart disease of native coronary artery without angina pectoris; E78.00 Pure hypercholesterolemia, unspecified; E11.9 Type 2 diabetes mellitus without complications; M19.90 Unspecified osteoarthritis, unspecified site; Z88.8 Allergy status to other drugs, medicaments and biological substances; Z79.82 Long term (current) use of aspirin; Z79.899 Other long term (current) drug therapy; Z99.3 Dependence on wheelchair
CPT/HCPCS: 36415; 80053; 81001; 83605; 84443; 85025; 87086; 93005; 93010; 99284

== ENCOUNTER 2024-03-11 18:11 | Emergency (ER) | payer MEDICARE, OTHER ==
[2024-03-11 18:35] VITALS: BP 131/76; PULSE 66
== END 2024-03-11 20:52 | disposition home or self-care (01) ==
LOC: DL.ED 18:11
DX: S42.295A Other nondisplaced fracture of upper end of left humerus, initial encounter for closed fracture (principal); I10 Essential (primary) hypertension; I25.10 Atherosclerotic heart disease of native coronary artery without angina pectoris; E78.00 Pure hypercholesterolemia, unspecified; M19.90 Unspecified osteoarthritis, unspecified site; E11.9 Type 2 diabetes mellitus without complications; Z87.891 Personal history of nicotine dependence; Z88.8 Allergy status to other drugs, medicaments and biological substances; Z79.82 Long term (current) use of aspirin; Z79.899 Other long term (current) drug therapy; X58.XXXA Exposure to other specified factors, initial encounter
CPT/HCPCS: 73030-LT; 99283

== ENCOUNTER 2024-04-22 20:19 | Inpatient (IN) | payer MEDICARE, OTHER, MEDICAID ==
[2024-04-22] MEDS ORDERED: Sodium Chloride 0.9% 10 ML Syringe FLUSH PRN (21:07)
[2024-04-22 21:49] LABS: BASOPHILS PERCENT AUTO 0.2 % (0.0-1.0); EOSINOPHILS PERCENT AUTO 1.1 % (1.0-3.0); HEMATOCRIT 34.9 % (37.0-47.0); HEMOGLOBIN 10.9 g/dL (12.0-16.0); LYMPHOCYTES PERCENT AUTO 18.6 % (20.5-50.1); MEAN CORPUSCULAR HEMOGLOBIN 31.3 pg (27.0-34.0); MEAN CORPUSCULAR HGB CONC 31.2 g/dL (33.0-35.0); MEAN CORPUSCULAR VOLUME 100.3 fL (80-100); MONOCYTES PERCENT AUTO 4.1 % (2-8); PLATELET COUNT,PLT 469 10^3/uL (150-450); RED BLOOD CELL COUNT 3.48 10^6/uL (4.2-5.4); WHITE BLOOD CELL COUNT,WBC 6.4 10^3/uL (5.0-10.0)
[2024-04-22 21:50] LABS: APPEARANCE,URINE CLOUDY (CLEAR); BILIRUBIN,URINE MODERATE (NEGATIVE); COLOR,URINE YELLOW (YELLOW); GLUCOSE,URINE NEGATIVE (NEGATIVE); KETONES,URINE 15 (NEGATIVE); LEUKOCYTE ESTERASE,URINE SMALL (NEGATIVE); NITRITE,URINE NEGATIVE (NEGATIVE); OCCULT BLOOD,URINE MODERATE (NEGATIVE); PH,URINE 6.5 (5.0-9.0); PROTEIN,URINE 100 (NEGATIVE); UROBILINOGEN,URINE 0.2 mg/dL (0.2-1.0)
[2024-04-22 22:01] LABS: BACTERIA,URINE MANY /HPF (0-FEW/HPF); EPITHELIAL CELLS,URINE MODERATE /HPF (NOT SEEN); WBC,URINE SEMI-PACKED /HPF (0-5/HPF)
[2024-04-22] MEDS: Lactated Ringers 1,000 ML IV SCH (22:02)
[2024-04-22 22:09] LABS: ALANINE AMINOTRANSFERASE,ALT 50 U/L (14-59); ALBUMIN 1.9 g/dL (3.4-5.0); ALKALINE PHOSPHATASE 84 U/L (46-116); ANION GAP 11.8 mEq/L (7-13); ASPARTATE AMNIOTRANSFERASE,AST 85 U/L (15-37); BILIRUBIN TOTAL 0.3 mg/dL (0.2-1.0); BLOOD UREA NITROGEN,BUN 56 mg/dL (7-18); BUN/CREATININE RATIO 41.8 (No establ ref range); CALCIUM 8.7 mg/dL (8.5-10.1); CARBON DIOXIDE,CO2 32 mmol/L (21-32); CHLORIDE,CL 106 mmol/L (98-107); CREATININE 1.34 mg/dL (0.55-1.02); GLUCOSE RANDOM 94 mg/dL (70-99); POTASSIUM,K 3.8 mmol/L (3.5-5.1); PROTEIN TOTAL,TP 5.5 g/dL (6.4-8.2); SODIUM,NA 146 mmol/L (136-145)
[2024-04-22 22:12] LABS: A/G RATIO 0.53; ESTIMATED GFR 42 mL/min (>=60); LACTIC ACID 1.5 mmol/L (0.4-2.0)
[2024-04-22] MEDS ORDERED: Naloxone 2 MG/2 ML Syringe IVPUSH PRN (23:55)
[2024-04-22] MEDS ORDERED: HYDROmorphone 0.5 MG/0.5 ML Syringe IVPUSH PRN (23:55)
[2024-04-22] MEDS ORDERED: Ondansetron 4 MG/2 ML SDV IVPUSH PRN (23:55)
[2024-04-22] MEDS ORDERED: Albuterol/Ipratropium 3.0-0.5 MG/3 ML Neb Soln NEB PRN (23:55)
[2024-04-23] MEDS ORDERED: LORazepam 2 MG/ML SDV IVPUSH PRN (00:13)
[2024-04-23] MEDS ORDERED: Flumazenil 0.1 MG/ML 5 ML MDV IVPUSH PRN (00:13)
[2024-04-23 00:22] LABS: C-REACTIVE PROTEIN 9.67 ng/dL (<=0.50); T4 FREE 0.73 ng/dL (0.76-1.46); TSH ULTRASENSITIVE 2.15 uIU/mL (0.36-3.74)
[2024-04-23] MEDS ORDERED: Acetaminophen/HYDROcodone 325-5 MG Tab PO PRN (01:04)
[2024-04-23] MEDS: MVI, Adult with Vitamin K 10 ML, Folic Acid 1 MG, Thiamine 100 MG in Lactated Ringers 1... IV ONE (01:34)
[2024-04-23] MEDS: Pantoprazole 40 MG Vial IVPUSH ONE (01:35)
[2024-04-23] MEDS: Meropenem 1 GM SDV IVPUSH ONE (01:35)
[2024-04-23] MEDS: HYDROmorphone 0.5 MG/0.5 ML Syringe IVPUSH PRN (01:35)
[2024-04-23] MEDS: Lactated Ringers 1,000 ML IV SCH (04:56)
[2024-04-23] MEDS ORDERED: Meropenem 1 GM SDV IVPUSH SCH ×2 (06:00→11:00)
[2024-04-23 06:19] LABS: BASOPHILS PERCENT AUTO 0.2 % (0.0-1.0); EOSINOPHILS PERCENT AUTO 1.7 % (1.0-3.0); HEMATOCRIT 25.3 % (37.0-47.0); HEMOGLOBIN 7.8 g/dL (12.0-16.0); LYMPHOCYTES PERCENT AUTO 22.9 % (20.5-50.1); MEAN CORPUSCULAR HEMOGLOBIN 31.3 pg (27.0-34.0); MEAN CORPUSCULAR HGB CONC 30.8 g/dL (33.0-35.0); MEAN CORPUSCULAR VOLUME 101.6 fL (80-100); MONOCYTES PERCENT AUTO 7.1 % (2-8); NEUTROPHILS PERCENT AUTO 68.1 % (42.2-75.2); PLATELET COUNT,PLT 347 10^3/uL (150-450); RED BLOOD CELL COUNT 2.49 10^6/uL (4.2-5.4)
[2024-04-23 06:39] LABS: ALBUMIN 1.2 g/dL (3.4-5.0); ANION GAP 9.3 mEq/L (7-13); BILIRUBIN TOTAL 0.2 mg/dL (0.2-1.0); C-REACTIVE PROTEIN 6.86 ng/dL (<=0.50); CREATININE 1.19 mg/dL (0.55-1.02); EST CRCL DRUG DOSING (CG) 36.9 mL/min; MAGNESIUM 1.7 mg/dL (1.8-2.4); POTASSIUM,K 3.3 mmol/L (3.5-5.1); PROTEIN TOTAL,TP 3.7 g/dL (6.4-8.2)
[2024-04-23 06:55] LABS: A/G RATIO 0.48; CALCIUM 7.8 mg/dL (8.5-10.1)
[2024-04-23] MEDS: Enoxaparin 40 MG/0.4 ML Syringe SUBCUT SCH (08:16)
[2024-04-23] MEDS: Pantoprazole 40 MG Vial IVPUSH SCH (08:16)
[2024-04-23] MEDS: Saccharomyces Boulardii (Probiotic) 250 MG Cap PO SCH (08:17)
[2024-04-23] MEDS ORDERED: Enoxaparin 30 MG/0.3 ML Syringe SUBCUT SCH (09:00)
[2024-04-23] MEDS: Albumin Human 25 GM in Premix Bag 1 BAG IV SCH (10:10)
[2024-04-23] MEDS: Potassium Chloride 20 MEQ in Premix Bag 1 BAG IV ONE ×2 (11:14→22:33)
[2024-04-23] MEDS: Magnesium Sulf/Wat 2 GM/50 mL 2 GM in Premix Bag 1 BAG IV ONE (11:19)
[2024-04-23] MEDS ORDERED: Midodrine 5 MG Tab PO PRN (11:27)
[2024-04-23] MEDS: Hydrocortisone Sodium Succinate 100 MG/2 ML SDV IVPUSH SCH (11:56)
[2024-04-23] MEDS: Meropenem 1 GM SDV IVPUSH SCH (11:56)
[2024-04-23] MEDS: Aspirin 300 MG Supp RECTAL STA (11:56)
[2024-04-23 12:33] LABS: CHOLESTEROL HDL 35 mg/dL (40-59); CHOLESTEROL LDL CALCULATED 49 mg/dL (0-100); CHOLESTEROL TOTAL 119 mg/dL (0-199); HEMOGLOBIN A1C 4.2 % (<5.7); TRIGLYCERIDES 177 mg/dL (0-149)
[2024-04-23] MEDS: Gadobenate Dimeglumine 529 MG/ML 15 ML SDV IVPUSH ONE (13:50)
[2024-04-23] MEDS ORDERED: Emollient Combination No.71 177 ML Bottle TOP PRN (17:02)
[2024-04-23] MEDS: Dextrose 5%-0.45% NaCl 1,000 ML IV SCH (17:12)
[2024-04-23] MEDS: metroNIDAZOLE/Normal Saline 500 MG in Premix Bag 1 BAG IV SCH (18:08)
[2024-04-24 06:26] LABS: HEMATOCRIT 21.6 % (37.0-47.0); LYMPHOCYTES PERCENT AUTO 11.9 % (20.5-50.1); MEAN CORPUSCULAR HEMOGLOBIN 31.5 pg (27.0-34.0); MEAN CORPUSCULAR VOLUME 101.4 fL (80-100); MONOCYTES PERCENT AUTO 3.9 % (2-8); NEUTROPHILS PERCENT AUTO 84.2 % (42.2-75.2); PLATELET COUNT,PLT 345 10^3/uL (150-450); RED BLOOD CELL COUNT 2.13 10^6/uL (4.2-5.4); WHITE BLOOD CELL COUNT,WBC 4.4 10^3/uL (5.0-10.0)
[2024-04-24 06:35] LABS: HEMOGLOBIN 6.7 g/dL (12.0-16.0)
[2024-04-24 06:46] LABS: ALBUMIN 2.8 g/dL (3.4-5.0); ANION GAP 12.6 mEq/L (7-13); BILIRUBIN TOTAL 0.3 mg/dL (0.2-1.0); BUN/CREATININE RATIO 31.1 (No establ ref range); C-REACTIVE PROTEIN 5.6 ng/dL (<=0.50); CALCIUM 8.1 mg/dL (8.5-10.1); CREATININE 1.06 mg/dL (0.55-1.02); EST CRCL DRUG DOSING (CG) 41.43 mL/min; MAGNESIUM 2.1 mg/dL (1.8-2.4); POTASSIUM,K 3.6 mmol/L (3.5-5.1); PROTEIN TOTAL,TP 4.8 g/dL (6.4-8.2)
[2024-04-24 06:51] LABS: A/G RATIO 1.4
[2024-04-24] MEDS ORDERED: HYDROmorphone 0.5 MG/0.5 ML Syringe IVPUSH PRN (08:51)
[2024-04-24] MEDS: Dextrose 5%-0.45% NaCl 1,000 ML IV SCH (09:59)
[2024-04-24] MEDS: Dexamethasone 4 MG/ML SDV IVPUSH ONE (10:06)
[2024-04-24] MEDS: diphenhydrAMINE 50 MG/ML SDV IV ONE (10:08)
[2024-04-25] MEDS: Modafinil 100 MG Tab PO ONE (05:35)
[2024-04-25 06:30] LABS: HEMOGLOBIN 11.8 g/dL (12.0-16.0); MEAN CORPUSCULAR HEMOGLOBIN 30.6 pg (27.0-34.0); MEAN CORPUSCULAR HGB CONC 32.8 g/dL (33.0-35.0); MEAN CORPUSCULAR VOLUME 93.5 fL (80-100); PLATELET COUNT,PLT 343 10^3/uL (150-450); RED BLOOD CELL COUNT 3.85 10^6/uL (4.2-5.4); WHITE BLOOD CELL COUNT,WBC 4.7 10^3/uL (5.0-10.0)
[2024-04-25 06:41] LABS: LYMPHOCYTES PERCENT AUTO 10.5 % (20.5-50.1); MONOCYTES PERCENT AUTO 3.9 % (2-8); NEUTROPHILS PERCENT AUTO 85.6 % (42.2-75.2)
[2024-04-25 06:51] LABS: ALBUMIN 2.6 g/dL (3.4-5.0); BILIRUBIN TOTAL 0.2 mg/dL (0.2-1.0); BUN/CREATININE RATIO 24.3 (No establ ref range); C-REACTIVE PROTEIN 3.22 ng/dL (<=0.50); CREATININE 1.11 mg/dL (0.55-1.02); EST CRCL DRUG DOSING (CG) 39.56 mL/min; MAGNESIUM 1.9 mg/dL (1.8-2.4); PROTEIN TOTAL,TP 4.9 g/dL (6.4-8.2)
[2024-04-25 06:52] LABS: A/G RATIO 1.13
[2024-04-25 07:00] LABS: LYMPHOCYTES PERCENT MAN 12 % (20-50); MONOCYTES PERCENT MAN 7 % (2-8); SEG NEUTROPHILS PERCENT MAN 81 % (42-75)
[2024-04-25] MEDS ORDERED: Modafinil 100 MG Tab PO SCH ×2 (09:00)
[2024-04-25] MEDS: Cholecalciferol (Vitamin D3) 10 MCG Tab PO SCH (10:01)
[2024-04-25] MEDS: Potassium Chloride 20 MEQ in Premix Bag 1 BAG IV ONE ×3 (10:03→21:15)
[2024-04-25] MEDS: atorvaSTATin 10 MG Tab PO SCH (21:24)
[2024-04-25] MEDS: Melatonin 3 MG Tab PO PRN (21:24)
[2024-04-26 06:39] LABS: BASOPHILS PERCENT AUTO 0.2 % (0.0-1.0); EOSINOPHILS PERCENT AUTO 0.4 % (1.0-3.0); HEMATOCRIT 37.9 % (37.0-47.0); HEMOGLOBIN 12.2 g/dL (12.0-16.0); LYMPHOCYTES PERCENT AUTO 11.5 % (20.5-50.1); MEAN CORPUSCULAR HEMOGLOBIN 30.3 pg (27.0-34.0); MEAN CORPUSCULAR HGB CONC 32.2 g/dL (33.0-35.0); MEAN CORPUSCULAR VOLUME 94.3 fL (80-100); MONOCYTES PERCENT AUTO 4.9 % (2-8); PLATELET COUNT,PLT 350 10^3/uL (150-450); RED BLOOD CELL COUNT 4.02 10^6/uL (4.2-5.4); WHITE BLOOD CELL COUNT,WBC 4.7 10^3/uL (5.0-10.0)
[2024-04-26 06:53] LABS: ALBUMIN 2.2 g/dL (3.4-5.0); ANION GAP 11.1 mEq/L (7-13); BILIRUBIN TOTAL 0.1 mg/dL (0.2-1.0); BUN/CREATININE RATIO 28.2 (No establ ref range); C-REACTIVE PROTEIN 1.6 ng/dL (<=0.50); CALCIUM 7.8 mg/dL (8.5-10.1); CREATININE 0.85 mg/dL (0.55-1.02); EST CRCL DRUG DOSING (CG) 51.66 mL/min; POTASSIUM,K 4.1 mmol/L (3.5-5.1); PROTEIN TOTAL,TP 4.4 g/dL (6.4-8.2)
[2024-04-26 07:40] VITALS: BP 111/69; PULSE 77
[2024-04-26] MEDS: Acetaminophen 325 MG Tab PO PRN (08:50)
[2024-04-26] MEDS: Modafinil 100 MG Tab PO SCH (08:51)
[2024-04-26] MEDS ORDERED: Modafinil 100 MG Tab PO SCH (09:00)
[2024-04-26] MEDS ORDERED: Bacitracin/Neomycin/Polymyxin B Oint 28.4 GM Tube TOP SCH (09:00)
[2024-04-26] MEDS ORDERED: Non-Formulary Medication 1 Each (Alendronate Sodium [Alendronate Sodium] 70 MG Tablet) PO SCH (09:30)
[2024-04-26] MEDS ORDERED: Diclofenac Sodium 1% Gel 100 GM Tube TOP SCH (13:00)
[2024-04-26] MEDS ORDERED: Phenytoin 100 MG Cap.ER PO SCH (21:00)
[2024-04-26] MEDS ORDERED: Primidone 250 MG Tab PO SCH (21:00)
[2024-04-26] MEDS ORDERED: atorvaSTATin 10 MG Tab PO SCH (21:00)
[2024-04-26] MEDS ORDERED: Apixaban 5 MG Tab PO SCH (21:00)
[2024-04-26] MEDS ORDERED: Ferrous Sulfate 325 MG Tab PO SCH (21:00)
[2024-04-27] MEDS ORDERED: Folic Acid 1 MG Tab PO SCH (09:00)
[2024-04-27] MEDS ORDERED: Lisinopril 10 MG Tab PO SCH (09:00)
[2024-04-27] MEDS ORDERED: Aspirin 81 MG Tab.EC PO SCH (09:00)
[2024-04-27] MEDS ORDERED: Furosemide 20 MG Tab PO SCH (09:00)
[2024-04-27] MEDS ORDERED: Cyanocobalamin (Vitamin B12) 1,000 MCG Tab PO SCH (09:00)
[2024-04-27] MEDS ORDERED: Cholecalciferol (Vitamin D3) 25 MCG Tab PO SCH (09:00)
== END 2024-04-26 11:29 | disposition swing bed (61) | DRG 682 ==
LOC: DL.ED 20:19 → EEVIPCON 22:22 → DL.MS 22:22
PROVIDERS: ADMIT Internal Medicine; ATTEND Internal Medicine
PROC: 30233N1 Transfusion of Nonautologous Red Blood Cells into Peripheral Vein, Percutaneous Approach (ICD-10-PCS; principal; 2024-04-22)
DX: N17.9 Acute kidney failure, unspecified (principal); E43 Unspecified severe protein-calorie malnutrition; G93.41 Metabolic encephalopathy; L89.122 Pressure ulcer of left upper back, stage 2; L89.153 Pressure ulcer of sacral region, stage 3; J96.01 Acute respiratory failure with hypoxia; R15.9 Full incontinence of feces; I63.89 Other cerebral infarction; J69.0 Pneumonitis due to inhalation of food and vomit; I10 Essential (primary) hypertension; N39.0 Urinary tract infection, site not specified; E87.1 Hypo-osmolality and hyponatremia; Z79.82 Long term (current) use of aspirin; M62.82 Rhabdomyolysis; Z66 Do not resuscitate; E86.0 Dehydration; I25.10 Atherosclerotic heart disease of native coronary artery without angina pectoris; G40.909 Epilepsy, unspecified, not intractable, without status epilepticus; M06.9 Rheumatoid arthritis, unspecified; H91.90 Unspecified hearing loss, unspecified ear; H54.7 Unspecified visual loss; Z95.5 Presence of coronary angioplasty implant and graft; E78.00 Pure hypercholesterolemia, unspecified; J40 Bronchitis, not specified as acute or chronic; E11.9 Type 2 diabetes mellitus without complications; Z68.22 Body mass index [BMI] 22.0-22.9, adult; I25.2 Old myocardial infarction; I11.9 Hypertensive heart disease without heart failure; L89.102 Pressure ulcer of unspecified part of back, stage 2; L89.152 Pressure ulcer of sacral region, stage 2; R51.9 Headache, unspecified; R32 Unspecified urinary incontinence; R53.1 Weakness; D53.9 Nutritional anemia, unspecified; D75.839 Thrombocytosis, unspecified; E88.09 Other disorders of plasma-protein metabolism, not elsewhere classified; R62.7 Adult failure to thrive; M19.90 Unspecified osteoarthritis, unspecified site; M81.0 Age-related osteoporosis without current pathological fracture; B35.1 Tinea unguium; E53.8 Deficiency of other specified B group vitamins; D50.9 Iron deficiency anemia, unspecified; E55.9 Vitamin D deficiency, unspecified; I95.9 Hypotension, unspecified; G62.9 Polyneuropathy, unspecified; Z85.3 Personal history of malignant neoplasm of breast; Z87.891 Personal history of nicotine dependence; Z99.3 Dependence on wheelchair; Z88.0 Allergy status to penicillin; Z79.899 Other long term (current) drug therapy; Z88.8 Allergy status to other drugs, medicaments and biological substances
CPT/HCPCS: 36415; 36430; 51702; 70450; 70544; 70547; 70551; 71045; 73020-LT; 76770; 80053; 80061; 80185; 81001; 82272; 82306; 82533; 82550; 83036; 83605; 83735; 84439; 84443; 85025; 86140; 86850; 86900; 86901; 86920; 86922; 87040; 87086; 87088; 87186; 92610-GN; 93306; 97161-GP; 97165-GO; 97530-GO; 99285; A9270-GY; A9577; J1100; J1200; J1650; J1720; J1836; J2185; J2470; J3411; J3475; J3480; J3490; J7120; P9016; P9047

== ENCOUNTER 2024-04-26 11:30 | Inpatient (IN) | payer MEDICARE ==
[~2024-04-26 11:30] MED LIST: Acetaminophen 325 MG Tab PO PRN; Acetaminophen/Butalbital/Caffeine 325-50-40 MG Tab PO PRN; Acetaminophen/HYDROcodone 325-5 MG Tab PO PRN; Albuterol/Ipratropium 3.0-0.5 MG/3 ML Neb Soln NEB PRN; Emollient Combination No.71 177 ML Bottle TOP PRN; Flumazenil 0.1 MG/ML 5 ML MDV IVPUSH PRN; HYDROmorphone 0.5 MG/0.5 ML Syringe IVPUSH PRN; LORazepam 2 MG/ML SDV IVPUSH PRN; Naloxone 2 MG/2 ML Syringe IVPUSH PRN; Ondansetron 4 MG/2 ML SDV IVPUSH PRN; Sodium Chloride 0.9% 10 ML Syringe FLUSH PRN
[2024-04-26] MEDS: Sucralfate 1 GM Tab PO SCH (12:10)
[2024-04-26] MEDS: Pantoprazole 40 MG Tab.CR PO SCH (16:46)
[2024-04-26] MEDS: Primidone 250 MG Tab PO SCH (20:33)
[2024-04-26] MEDS: Ferrous Sulfate 325 MG Tab PO SCH (20:33)
[2024-04-26] MEDS: Phenytoin 100 MG Cap.ER PO SCH (20:33)
[2024-04-26] MEDS: Melatonin 3 MG Tab PO PRN (20:33)
[2024-04-26] MEDS: atorvaSTATin 10 MG Tab PO SCH (20:33)
[2024-04-26] MEDS: Saccharomyces Boulardii (Probiotic) 250 MG Cap PO SCH (20:33)
[2024-04-26] MEDS: Apixaban 5 MG Tab PO SCH (20:34)
[2024-04-26] MEDS: Bacitracin/Neomycin/Polymyxin B Oint 28.4 GM Tube TOP SCH (20:34)
[2024-04-26] MEDS: Mirtazapine 15 MG Tab PO SCH (20:34)
[2024-04-26] MEDS ORDERED: Pantoprazole 40 MG Vial IVPUSH SCH (21:00)
[2024-04-27] MEDS: Midodrine 5 MG Tab PO PRN (05:10)
[2024-04-27] MEDS: Lisinopril 10 MG Tab PO SCH (08:29)
[2024-04-27] MEDS: Modafinil 100 MG Tab PO SCH (08:30)
[2024-04-27] MEDS: Aspirin 81 MG Tab.EC PO SCH (08:30)
[2024-04-27] MEDS: Folic Acid 1 MG Tab PO SCH (08:30)
[2024-04-27] MEDS: Cholecalciferol (Vitamin D3) 25 MCG Tab PO SCH (08:30)
[2024-04-27] MEDS: Cyanocobalamin (Vitamin B12) 1,000 MCG Tab PO SCH (08:30)
[2024-04-27] MEDS ORDERED: Furosemide 20 MG Tab PO SCH (09:00)
[2024-04-27] MEDS ORDERED: Lisinopril 10 MG Tab PO SCH (09:00)
[2024-04-27] MEDS: Dextrose 5%-0.9% NaCl 1,000 ML IV SCH (21:39)
[2024-04-28] MEDS ORDERED: LORazepam 2 MG/ML SDV IVPUSH PRN (02:25)
[2024-04-28] MEDS: LORazepam 2 MG/ML SDV IVPUSH PRN (02:29)
[2024-04-28] MEDS: LORazepam 2 MG/ML SDV ONE (03:22)
[2024-04-28] MEDS: Dextrose 5%-0.9% NaCl 1,000 ML IV SCH (21:40)
[2024-04-29] MEDS: Acetaminophen 325 MG Tab PO PRN (05:22)
[2024-04-30 07:16] LABS: ALBUMIN 1.7 g/dL (3.4-5.0); ANION GAP 9.2 mEq/L (7-13); BILIRUBIN TOTAL 0.2 mg/dL (0.2-1.0); CALCIUM 7.7 mg/dL (8.5-10.1); CREATININE 0.65 mg/dL (0.55-1.02); EST CRCL DRUG DOSING (CG) 73.24 mL/min; MAGNESIUM 1.9 mg/dL (1.8-2.4); POTASSIUM,K 3.2 mmol/L (3.5-5.1); PROTEIN TOTAL,TP 3.9 g/dL (6.4-8.2)
[2024-04-30 07:25] LABS: A/G RATIO 0.77
[2024-04-30] MEDS: Bumetanide 1 MG/4 ML MDV IVPUSH ONE (11:11)
[2024-04-30] MEDS: Potassium Chloride 20 MEQ in Premix Bag 1 BAG IV ONE ×2 (11:11→20:05)
[2024-04-30] MEDS ORDERED: Potassium Chloride 20 MEQ in Premix Bag 1 BAG IV ONE (16:00)
[2024-04-30] MEDS: Primidone 250 MG Tab PO SCH (20:05)
[2024-04-30] MEDS: Phenytoin 100 MG Cap.ER PO SCH (20:05)
[2024-05-01] MEDS: Menthol/Zinc Oxide Ointment 113 GM Tube TOP PRN (16:29)
[2024-05-01] MEDS ORDERED: Apixaban 5 MG Tab PO SCH (21:00)
[2024-05-01] MEDS ORDERED: Ferrous Sulfate 325 MG Tab PO SCH (21:00)
[2024-05-01] MEDS ORDERED: atorvaSTATin 10 MG Tab PO SCH (21:00)
[2024-05-02] MEDS ORDERED: Non-Formulary Medication 1 Each (Cyanocobalamin (Vitamin B-12) [Vitamin B-12] 100 MCG Tabl PO SCH (09:00)
[2024-05-02] MEDS ORDERED: Folic Acid 1 MG Tab PO SCH (09:00)
[2024-05-02] MEDS ORDERED: Aspirin 81 MG Tab.EC PO SCH (09:00)
[2024-05-02] MEDS ORDERED: Cholecalciferol (Vitamin D3) 25 MCG Tab PO SCH (09:00)
[2024-05-02] MEDS: FLU (Fluad Triv) TS24-25 (65UP)/MF59C/PF 45 MCG/0.5 ML Syringe IM ONE (11:36)
[2024-05-03 08:52] VITALS: BP 109/70; PULSE 80
== END 2024-05-03 09:15 | disposition other institution (70) | DRG 947 ==
LOC: DL.MS 11:30 → EEVIPCON 11:30 → DL.MS 04-28 03:07
PROVIDERS: ADMIT Internal Medicine; ATTEND Internal Medicine
DX: R53.81 Other malaise (principal); E43 Unspecified severe protein-calorie malnutrition; I63.9 Cerebral infarction, unspecified; L89.153 Pressure ulcer of sacral region, stage 3; J96.01 Acute respiratory failure with hypoxia; J69.0 Pneumonitis due to inhalation of food and vomit; G93.41 Metabolic encephalopathy; N17.9 Acute kidney failure, unspecified; N39.0 Urinary tract infection, site not specified; M62.82 Rhabdomyolysis; E87.1 Hypo-osmolality and hyponatremia; H54.7 Unspecified visual loss; H91.90 Unspecified hearing loss, unspecified ear; I10 Essential (primary) hypertension; I25.10 Atherosclerotic heart disease of native coronary artery without angina pectoris; E11.9 Type 2 diabetes mellitus without complications; K59.09 Other constipation; M19.90 Unspecified osteoarthritis, unspecified site; E78.00 Pure hypercholesterolemia, unspecified; M81.0 Age-related osteoporosis without current pathological fracture; G40.909 Epilepsy, unspecified, not intractable, without status epilepticus; D53.9 Nutritional anemia, unspecified; L89.112 Pressure ulcer of right upper back, stage 2; L89.152 Pressure ulcer of sacral region, stage 2; L89.892 Pressure ulcer of other site, stage 2; D50.9 Iron deficiency anemia, unspecified; D69.6 Thrombocytopenia, unspecified; E83.52 Hypercalcemia; E86.0 Dehydration; E87.6 Hypokalemia; Z66 Do not resuscitate; Z95.1 Presence of aortocoronary bypass graft; Z87.891 Personal history of nicotine dependence; Z68.23 Body mass index [BMI] 23.0-23.9, adult; Z88.8 Allergy status to other drugs, medicaments and biological substances; Z79.01 Long term (current) use of anticoagulants; Z79.82 Long term (current) use of aspirin; Z79.1 Long term (current) use of non-steroidal anti-inflammatories (NSAID); Z79.899 Other long term (current) drug therapy; Z79.02 Long term (current) use of antithrombotics/antiplatelets; Z85.3 Personal history of malignant neoplasm of breast; Z98.890 Other specified postprocedural states
CPT/HCPCS: 36415; 80053; 83735; 90653; 97110-GO; 97110-GP; 97112-GO; 97140-GO; 97161-GP; 97165-GO; 97530-GO; 97530-GP; 99306; 99310; 99315; A9270-GY; G0008; J2060; J3480; J3490; J7042; U0002